=== PATIENT | female | born 1970 | race Caucasian/White ===

== ENCOUNTER → 2016-11-12 | Outpatient (CLI) | payer BC ==
[~2016-11-12] MED LIST: ALBU17IN INH; CYCL10TA PO; DULO1CAP3 PO; IBUP800T23 PO; MONT10TA2 PO; PRED10TA PO; QNAS80AE; QVAR80AE7 IN; TRAZ50TA4 PO
--- NOTE | 2016-11-12 14:41 | REP ---
CERVICAL SPINE, SEVEN VIEWS: HISTORY: Neck pain. There is no acute fracture. The C4-5 and C5-6 intervertebral discs are decreased in height consistent with disc degeneration. Osteophytes are present on C4 and 5. There is narrowing of the C5 neural foramina secondary to uncinate process hypertrophy. There are 2 mm of anterior subluxation of C3 on 4. This increases to 3 mm with flexion and returns to 2 mm with extension. There are 2 mm of anterior subluxation of C4 on C5. This is unchanged with flexion and extension. IMPRESSION: Degenerative change as described above. Signed by Reji Carcamo MD 11/12/2016 02:43 P
== END ==
LOC: M WUC 13:36
PROVIDERS: ATTEND Nurse Practitioner Family
DX: M50.321 Other cervical disc degeneration at C4-C5 level (principal); M50.322 Other cervical disc degeneration at C5-C6 level

== ENCOUNTER → 2016-12-29 | Outpatient (CLI) | payer BC | LOC: M WUC 12:19 | PROVIDERS: ATTEND Nurse Practitioner Family | DX: E55.9 Vitamin D deficiency, unspecified (principal) ==

== ENCOUNTER → 2017-11-14 | Outpatient (CLI) | payer BC, OTHER | LOC: M SMT 09:40 | DX: J45.50 Severe persistent asthma, uncomplicated (principal) | CPT/HCPCS: 71046 ==

== ENCOUNTER → 2018-06-09 | Outpatient (CLI) | payer BC | LOC: M PAIN 10:45 | DX: M79.7 Fibromyalgia (principal); M15.0 Primary generalized (osteo)arthritis; M54.2 Cervicalgia; T14.8XXA Other injury of unspecified body region, initial encounter; R53.1 Weakness; M47.812 Spondylosis without myelopathy or radiculopathy, cervical region; F32.9 Major depressive disorder, single episode, unspecified; F17.210 Nicotine dependence, cigarettes, uncomplicated; J45.909 Unspecified asthma, uncomplicated; Z79.899 Other long term (current) drug therapy; Y99.8 Other external cause status; X58.XXXA Exposure to other specified factors, initial encounter; Y92.89 Other specified places as the place of occurrence of the external cause; Y93.89 Activity, other specified | CPT/HCPCS: G0463 ==

== ENCOUNTER → 2018-08-08 | Outpatient (CLI) | payer BC | LOC: M PAIN 10:15 | DX: M79.7 Fibromyalgia (principal); R52 Pain, unspecified; J45.909 Unspecified asthma, uncomplicated; F32.9 Major depressive disorder, single episode, unspecified; R01.1 Cardiac murmur, unspecified; M19.90 Unspecified osteoarthritis, unspecified site; F17.210 Nicotine dependence, cigarettes, uncomplicated; N39.3 Stress incontinence (female) (male); R35.0 Frequency of micturition; Z79.899 Other long term (current) drug therapy | CPT/HCPCS: G0463 ==

== ENCOUNTER → 2018-09-19 | Outpatient (CLI) | payer BC | LOC: M PAIN 14:15 | DX: M79.7 Fibromyalgia (principal); R52 Pain, unspecified; J45.909 Unspecified asthma, uncomplicated; F32.9 Major depressive disorder, single episode, unspecified; M19.90 Unspecified osteoarthritis, unspecified site; Z79.51 Long term (current) use of inhaled steroids; Z79.899 Other long term (current) drug therapy | CPT/HCPCS: G0463 ==

== ENCOUNTER → 2018-10-27 | Outpatient (CLI) | payer BC ==
[~2018-10-27] MED LIST changes: +BUPIVACAINE HCL 0.25% 10 ML VIAL As Ordered ONE; +BUPIVACAINE HCL 0.25% 30 ML VIAL As Ordered ONE; +IBUP1TAB7 PO; -IBUP800T23 PO; +QVAR80AE10 IN; -QVAR80AE7 IN; +TRAZ-160 PO; -TRAZ50TA4 PO; +TRIAMCINOLONE ACETONIDE SUSP 40 MG/ML VIAL (J3301) As Ordered ONE; +diazePAM 5 MG TAB As Ordered ONE; +oxyCODONE 5MG TAB As Ordered ONE
--- NOTE | 2018-11-11 23:38 | ECWPNPC ---
PATIENT NAME: THERESE HALL : 1970 GENDER: FEMALE VISIT DATE: 10/27/2018 DISCHARGE DATE: 10/27/18951 VISIT LOCKED DATE TIME: PHYSICIAN: CARLOTTA SIMMONS MD RESOURCE: CARLOTTA SIMMONS MD REASON FOR APPOINTMENT 1. TPI HISTORY OF PRESENT ILLNESS HISTORY OF PRESENT ILLNESS: PAIN THE PATIENT DESCRIBES THE PAIN... FALL RISK SCREENING: SCREENING :NO FALLS IN THE PAST YEAR CURRENT MEDICATIONS TAKING IBUPROFEN 800 MG TABLET 1 TABLET ORALLY Q8H, NOTES: 10/26/18@1099 TAKING MULTIVITAMINS OTC TABLET 1 TAB(S) ORALLY DAILY, NOTES: @1099 TAKING DULOXETINE HCL 60 MG CAPSULE DELAYED RELEASE PARTICLES 1 CAPSULE ORALLY BID, NOTES: 10/26/18 TAKING MONTELUKAST SODIUM 10 MG TABLET 1 TABLET ORALLY ONCE A DAY, NOTES: 10/26/18 TAKING TRAZODONE HCL 100 MG TABLET 1 TABLET AT BEDTIME ORALLY ONCE A DAY, NOTES: 10/26/18 TAKING CYCLOBENZAPRINE HCL 10 MG TABLET 1 TABLET NEEDED ORALLY THREE TIMES A DAY, NOTES: 1 WEEK AGO TAKING BREO ELLIPTA 200-25 MCG/INH AEROSOL POWDER BREATH ACTIVATED 1 PUFF INHALATION ONCE A DAY, NOTES: 10/26/18 TAKING MOMETASONE FUROATE 50 MCG/ACT SUSPENSION 2 SPRAYS IN EACH NOSTRIL NASALLY ONCE A DAY, NOTES: NONE RECENTLY TAKING BENADRYL ALLERGY 25 MG TABLET 1 TABLET NEEDED ORALLY EVERY 8 HRS, NOTES: 10/26/18@2300 TAKING FISH OIL 1200 MG CAPSULE 1 CAPSULE ORALLY ONCE A DAY, NOTES: 10/26/18 TAKING MARYAN ALLERGY 180 MG TABLET 1 TABLET NEEDED ORALLY ONCE A DAY, NOTES: 10/26/18 TAKING TRAMADOL HCL 50 MG TABLET 1 TABLET NEEDED ORALLY EVERY 6 HRS PRN MDD4 #60TAB SHOULD LAST 30 DAYS, NOTES: 1 WEEK AGO NOT-TAKING VENTOLIN HFA 108 (90 BASE) MCG/ACT AEROSOL SOLUTION 2 PUFFS NEEDED INHALATION EVERY 6 HRS, NOTES: NONE RECENTLY DISCONTINUED CELEBREX 200 MG CAPSULE 1 CAPSULE WITH FOOD ORALLY FOR PAIN ONCE A DAY DISCONTINUED AZURETTE 0.15-0.02/0.01 MG (/5) TABLET 1 TABLET ORALLY ONCE A DAY MEDICATION LIST REVIEWED AND RECONCILED WITH THE PATIENT PAST MEDICAL HISTORY URINARY FREQUENCY/STRESS INCONTINENCE ASTHMA FIBROMYALGIA CHRONIC PAIN , NECK PAIN , DJD DEPRESSION PALPITATIONS ARTHRITIS ALLERGIES ENVIRONMENTAL: POST NASAL DRIP: ALLERGY SURGICAL HISTORY COLONOSCOPY 2007 REMOVAL BREAST CYSTS THROUGH NEEDLE ASPIRATION 2009 HYSTERECTOMY 2011 FAMILY HISTORY FATHER: 63 YRS, DIAGNOSED WITH CANCER MOTHER: ALIVE 79 YRS 2 SISTER(S) - HEALTHY. 2 SON(S) - HEALTHY. DAD LR/T LUNG CANCERMOM, BOTH SISTERS DIAGNOSED WITH ARTHRITIS. SOCIAL HISTORY GENERAL: TOBACCO USE ARE YOU A:CURRENT SMOKER ARE YOU INTERESTED IN QUITTING?THINKING ABOUT QUITTING CUTTING BACK SLOWLY AT THIS TIME PREVIOUS QUIT ATTEMPTS?YES, MORE THAN 6 MONTHS AGO. COUNSELED THE PATIENT ON SMOKING CESSATION, EDUCATION [id number]/04/2019 ASSIST (PHARMACOTHERAPY AND COUNSELING)DISCUSSED PATIENT CONCERNS RELATED TO QUITTING. PT STATES SHE HAS INFORMATION REGARDING SMOKING CESSATION HOW MANY CIGARETTES A DAY DO YOU SMOKE?6-10 HOW SOON AFTER YOU WAKE UP DO YOU SMOKE YOUR FIRST CIGARETTE?WITHIN 5 MIN HOW OFTEN DO YOU SMOKE CIGARETTES?EVERY DAY PATIENT COUNSELED ON THE DANGERS OF TOBACCO USE AND URGED TO QUIT:10/27/2018 RECREATIONAL DRUG USE DRUG USE?YES HOW OFTEN AND HOW MUCH? SMOKES MARIJUANA SEVERAL TIMES A MONTH CAFFEINE 2 COFFEES/DAY. NO SODA. SEXUAL HX HAD SEX IN THE LAST 12 MONTHS (VAGINAL, ORAL, OR ANAL)?YES WITHMEN ONLY USE PROTECTION?NO HAVE YOU EVER HAD AN STD?NO LMP:08/20/10 LANGUAGE LANGUAGES SPOKEN:SAMI LEARNING BARRIERS / SPECIAL NEEDS BARRIERS TO LEARNING?NO HEARING IMPAIRED?NO VISION IMPAIRED?NO COGNITIVELY IMPAIRED?NO READINESS TO LEARN?YES LEARNING PREFERENCES?NO LEARNING CAPABILITIES PRESENT?YES EMOTIONAL BARRIERS?NO SPECIAL DEVICES?NO GUM DIPPER NEEDED?NO DOMESTIC VIOLENCE DO YOU FEEL SAFE IN YOUR ENVIRONMENT?YES OCCUPATION: UNEMPLOYED. EXERCISE: DAILY 30 MINS CARDIO. MARITAL STATUS: . OTHERS AT HOME: SPOUSE, CHILDREN. PAIN CLINIC PFS, CLERGY, PUBLIC HEALTH REFERRALS HAS THE PATIENT BEEN EDUCATED REGARDING HIS/HER PLAN OF CARE?YES HAS THE PATIENT BEEN EDUCATED REGARDING PAIN, THE RISK FOR PAIN, THE IMPORTANCE OF EFFECTIVE PAIN MANAGEMENT, AND THE PAIN ASSESSMENT PROCESS?YES ADVANCE DIRECTIVE ADVANCE DIRECTIVE DISCUSSED WITH PATIENT:YES PT HAS NO ADVANCED DIRECTIVES, DECLINES INFORMATION AT THIS TIME REVIEWED WITH PT 06/09/18 1120 LASREVIEWED WITH PT 08/08/18 1031 BV. HOSPITALIZATION/MAJOR DIAGNOSTIC PROCEDURE ASTHMA ATTACK, WAS INTUBATED AND AN INPATIENT X 7 DAYS 2016 REVIEW OF SYSTEMS REVIEWED BY: PROVIDER: . CONSTITUTIONAL: ANY CHANGE IN YOUR MEDICAL CONDITION? NO . CHILLS NO . FEVER NO . INFECTION: DO YOU HAVE NEW INFECTIONS? NO . DO YOU HAVE HISTORY OF MRSA? NO . MUSCULOSKELETAL: ANY NEW PATTERNS OF PAIN OR NUMBNESS? NO . GASTROENTEROLOGY: ANY NEW CHANGE IN BOWEL CONTROL? NO . GENITOURINARY: ANY NEW CHANGE IN BLADDER CONTROL? NO . IS THERE A CHANCE YOU COULD BE ? NO . HEMATOLOGY/LYMPH: DO YOU TAKE ANY BLOOD THINNERS? (FOR EXAMPLE- COUMADIN, PLAVIX, AGGRENOX, PLATEL, PRADAXA, OR XARELTO) NO . WHEN WAS YOUR LAST DOSE? DATE: TIME: . NEUROLOGY: HAVE YOU FALLEN IN THE PAST 6 MONTHS? NO . ANY NEW EXTREMITY NUMBNESS OR WEAKNESS? NO . CARDIOLOGY: DO YOU HAVE A PACEMAKER OR DEFIBRILLATOR? NO . RESPIRATORY: HAVE YOU BEEN SICK IN THE PAST WEEK? NO . FEVER NO . FLU LIKE SYMPTOMS? NO . COUGH NO . INTEGUMENTARY: DO YOU HAVE ANY RASHES OR OPEN SORES? NO . ALLERGIC/IMMUNO: ARE YOU ALLERGIC TO SHELLFISH OR IV DYE? NO . ANY NEW ALLERGIES? NO . PSYCHIATRIC: DO YOU HAVE THOUGHTS OF HURTING YOURSELF OR SOMEONE ELSE? NO . ARE YOU ABUSED, NEGLECTED, OR IN AN UNSAFE ENVIRONMENT? NO . ENDOCRINOLOGY: ARE YOU DIABETIC? NO . OTHER: DO YOU NEED ANY PRESCRIPTIONS? NO . IF YES, PLEASE LIST: ____ . ANY NEW PROBLEMS WITH YOUR MEDICATIONS? NO . WHEN DID YOU LAST EAT? ____10/26/18 . WHEN DID YOU LAST DRINK? ____0600 . WHAT DID YOU LAST DRINK? ____BLACK COFFEE . NAME OF PERSON DRIVING YOU HOME? ____JAIRON HALL . DO YOU HAVE ANY OTHER QUESTIONS OR CONCERNS NO . VITAL SIGNS WT 125.6 LBS, HT 62.25 IN, BMI 22.79 INDEX, BP 128/85 MM HG, HR 84 /MIN, RR 16 /MIN, TEMP 98.1 F, OXYGEN SAT % 96%, SAFE IN ENV? (Y/N) Y, NA INITIALS MA 08:37, REVIEWED BY: ARRON. ASSESSMENTS MYALGIA, OTHER SITE - M79.18 (PRIMARY) PROCEDURES PN TRIGGER POINT INJECTION WITH STEROIDS PRE PROCEDURE DIAGNOSIS 1. MYALGIA 2. PAIN AT BILATERAL NECK AREA, BILATERAL SHOULDER AREA, AND BILATERAL THORACIC AREA POST PROCEDURE DIAGNOSIS 1. MYALGIA 2. PAIN AT BILATERAL NECK AREA, BILATERAL SHOULDER AREA, AND BILATERAL THORACIC AREA PROCEDURE TRIGGER POINT INJECTION AT BILATERAL NECK AREA, BILATERAL SHOULDER AREA, AND BILATERAL THORACIC AREA SURGEON DR. CARLOTTA SIMMONS ROLLER DIE CUTTING MACHINE OPERATOR NONE ANESTHESIA LOCAL PRE PROCEDURE NOTE THE PATIENT HAS A HISTORY OF CHRONIC PAIN AT THE RIGHT AND LEFT NECK AREA, RIGHT AND LEFT SHOULDER AREA, AND RIGHT AND LEFT THORACIC AREA. I EVALUATE THE PATIENT AND REVIEWED THE CHART. THERE IS EVIDENCE OF BANDS OF TISSUE WITH RESTRICTION OF MOVEMENT AND PRESENCE OF TRIGGER POINT AT THE AFFECTED AREA. I WENT OVER THE RISKS, ALTERNATIVES, AND BENEFITS ASSOCIATED WITH THIS PROCEDURE. THE PATIENT WOULD LIKE TO PROCEED AND GIVE CONSENT TO PERFORMED THE PROCEDURE. THE PATIENT DENIES UNEXPLAINABLE WEIGHT LOSS, FEVER, CHILLS, OR NEW CHANGES IN URINARY OR BOWEL CONTROL DESCRIPTION OF PROCEDURE THE PATIENT WAS BROUGHT TO THE PROCEDURE ROOM AND PLACED IN THE SITTING POSITION. THE AREA WAS CLEANED WITH ALCOHOL. THE PROCEDURE WAS DONE USING ASEPTIC STERILE TECHNIQUE. I CHECKED LATERALITY AND THE LEVEL WHERE THE PROCEDURE WAS GOING TO BE PERFORMED WITH THE PATIENT AND THE SUPPORTING STAFF AT THE MOMENT OF THE TIME OUT IN THE PROCEDURE ROOM. USING A 25-GAUGE NEEDLE, TRIGGER POINTS WERE INJECTED AT THE RIGHT AND LEFT NECK AREA, RIGHT AND LEFT SHOULDER AREA, AND RIGHT AND LEFT THORACIC AREA WITH A TOTAL OF 40 ML OF BUPIVACAINE 0.25% AND KENALOG 40 MG. THERE WAS NO EVIDENCE OF BLOOD, PARESTHESIA OR CEREBROSPINAL FLUID DURING THE PROCEDURE. THE PATIENT WAS SENT TO THE RECOVERY ROOM. THE PATIENT WAS MOVING THE EXTREMITIES AND DOING WELL. THERE WAS NO COMPLICATION DURING THE PROCEDURE POST PROCEDURE NOTE THE PATIENT WILL BE SEEN IN A FOLLOW UP IN THE NEXT FEW WEEKS. INSTRUCTIONS WERE GIVEN, QUESTIONS WERE ANSWERED, AND THE PATIENT EXPRESSED UNDERSTANDING AND AGREES WITH THE PLAN .I, ARIELLE MAGUIRE, DOCUMENTED THE ABOVE INFORMATION ACTING A SCRIBE FOR DR. SIMMONS. I HAVE REVIEWED THE ABOVE DOCUMENT, WRITTEN BY ARIELLE FLANAGAN AND I VERIFY THAT IT IS ACCURATE. PROCEDURE CODES 14154 INJECT TRIGGER POINTS 3/> DISPOSITION & COMMUNICATION FOLLOW UP 3 WEEKS ELECTRONICALLY SIGNED BY CARLOTTA SIMMONS MD, MD ON 11/11/2018 AT 09:26 PM EST DISCLAIMER : THIS IS A VISIT SUMMARY EXTRACTED FROM THE [employer] CHART. IT IS NOT A COPY OF THE [facility] PROGRESS NOTE. MTDD
== END ==
LOC: M PAIN 08:30
PROVIDERS: ATTEND Anesthesiology
DX: M79.18 Myalgia, other site (principal); M25.511 Pain in right shoulder; M25.512 Pain in left shoulder; M54.6 Pain in thoracic spine; J45.909 Unspecified asthma, uncomplicated; F32.9 Major depressive disorder, single episode, unspecified; M19.90 Unspecified osteoarthritis, unspecified site; F17.210 Nicotine dependence, cigarettes, uncomplicated; Z79.51 Long term (current) use of inhaled steroids; Z79.899 Other long term (current) drug therapy
CPT/HCPCS: 20553; J3301

== ENCOUNTER → 2018-11-27 | Outpatient (CLI) | payer BC ==
[~2018-11-27] MED LIST changes: -BUPIVACAINE HCL 0.25% 10 ML VIAL As Ordered ONE; -BUPIVACAINE HCL 0.25% 30 ML VIAL As Ordered ONE; -TRIAMCINOLONE ACETONIDE SUSP 40 MG/ML VIAL (J3301) As Ordered ONE; -diazePAM 5 MG TAB As Ordered ONE; -oxyCODONE 5MG TAB As Ordered ONE
--- NOTE | 2018-12-05 01:11 | ECWPNPC ---
PATIENT NAME: THERESE HALL : 1970 GENDER: FEMALE VISIT DATE: 11/27/2018 DISCHARGE DATE: 11/27/18 1425 VISIT LOCKED DATE TIME: PHYSICIAN: ANNEMARIE CORADO RESOURCE: ANNEMARIE CORADO REASON FOR APPOINTMENT 1. POST PROC HISTORY OF PRESENT ILLNESS HISTORY OF PRESENT ILLNESS: HERE FOR POST PROCEDURE F/U.HAD TPI NECK 11/11.REPORTING MARKED REDUCTION IN PAIN POST PROCEDURE THAT CONTINUES TODAY.RATING PAIN VAS 2/10. PAIN THE PATIENT DESCRIBES THE PAIN... THE PATIENT DESCRIBES THE PAIN... FALL RISK SCREENING: SCREENING :NO FALLS IN THE PAST YEAR :NO FALLS IN THE PAST YEAR SCREENING :NO FALLS IN THE PAST YEAR :NO FALLS IN THE PAST YEAR CURRENT MEDICATIONS TAKING IBUPROFEN 800 MG TABLET 1 TABLET ORALLY Q8H TAKING MULTIVITAMINS OTC TABLET 1 TAB(S) ORALLY DAILY TAKING DULOXETINE HCL 60 MG CAPSULE DELAYED RELEASE PARTICLES 1 CAPSULE ORALLY BID TAKING MONTELUKAST SODIUM 10 MG TABLET 1 TABLET ORALLY ONCE A DAY TAKING TRAZODONE HCL 100 MG TABLET 1 TABLET AT BEDTIME ORALLY ONCE A DAY TAKING CYCLOBENZAPRINE HCL 10 MG TABLET 1 TABLET NEEDED ORALLY THREE TIMES A DAY TAKING BREO ELLIPTA 200-25 MCG/INH AEROSOL POWDER BREATH ACTIVATED 1 PUFF INHALATION ONCE A DAY TAKING MOMETASONE FUROATE 50 MCG/ACT SUSPENSION 2 SPRAYS IN EACH NOSTRIL NASALLY ONCE A DAY, NOTES: NONE RECENTLY TAKING BENADRYL ALLERGY 25 MG TABLET 1 TABLET NEEDED ORALLY EVERY 8 HRS TAKING FISH OIL 1200 MG CAPSULE 1 CAPSULE ORALLY ONCE A DAY TAKING MARYAN ALLERGY 180 MG TABLET 1 TABLET NEEDED ORALLY ONCE A DAY UNKNOWN TRAMADOL HCL 50 MG TABLET 1 TABLET NEEDED ORALLY EVERY 6 HRS PRN MDD4 #60TAB SHOULD LAST 30 DAYS, NOTES: NOT REALLY TAKOIG UNKNOWN VENTOLIN HFA 108 (90 BASE) MCG/ACT AEROSOL SOLUTION 2 PUFFS NEEDED INHALATION EVERY 6 HRS, NOTES: NONE RECENTLY MEDICATION LIST REVIEWED AND RECONCILED WITH THE PATIENT PAST MEDICAL HISTORY URINARY FREQUENCY/STRESS INCONTINENCE ASTHMA FIBROMYALGIA CHRONIC PAIN , NECK PAIN , DJD DEPRESSION PALPITATIONS ARTHRITIS ALLERGIES ENVIRONMENTAL: POST NASAL DRIP: ALLERGY SURGICAL HISTORY COLONOSCOPY 2007 REMOVAL BREAST CYSTS THROUGH NEEDLE ASPIRATION 2009 HYSTERECTOMY 2011 FAMILY HISTORY FATHER: 63 YRS, DIAGNOSED WITH CANCER MOTHER: ALIVE 79 YRS 2 SISTER(S) - HEALTHY. 2 SON(S) - HEALTHY. DAD LR/T LUNG CANCERMOM, BOTH SISTERS DIAGNOSED WITH ARTHRITIS. HOSPITALIZATION/MAJOR DIAGNOSTIC PROCEDURE ASTHMA ATTACK, WAS INTUBATED AND AN INPATIENT X 7 DAYS 2016 REVIEW OF SYSTEMS REVIEWED BY: PROVIDER: , ANNEMARIE SINGH . CONSTITUTIONAL: ANY CHANGE IN YOUR MEDICAL CONDITION? LATELY EXPERIENCING DIZZINESS . CHILLS NO, NO . FEVER NO, NO . INFECTION: DO YOU HAVE NEW INFECTIONS? NO, NO . DO YOU HAVE HISTORY OF MRSA? NO, NO . MUSCULOSKELETAL: ANY NEW PATTERNS OF PAIN OR NUMBNESS? DECREASED SINCE TRIGGER POINTS . GASTROENTEROLOGY: ANY NEW CHANGE IN BOWEL CONTROL? NO, NO . GENITOURINARY: ANY NEW CHANGE IN BLADDER CONTROL? NO, NO . IS THERE A CHANCE YOU COULD BE ? NO, NO . HEMATOLOGY/LYMPH: DO YOU TAKE ANY BLOOD THINNERS? (FOR EXAMPLE- COUMADIN, PLAVIX, AGGRENOX, PLATEL, PRADAXA, OR XARELTO) NO, NO . WHEN WAS YOUR LAST DOSE? DATE: TIME: , DATE: TIME: . NEUROLOGY: HAVE YOU FALLEN IN THE PAST 12 MONTHS? NO, NO . ANY NEW EXTREMITY NUMBNESS OR WEAKNESS? NO, NO . CARDIOLOGY: DO YOU HAVE A PACEMAKER OR DEFIBRILLATOR? NO, NO . RESPIRATORY: HAVE YOU BEEN SICK IN THE PAST WEEK? NO, NO . FEVER NO, NO . FLU LIKE SYMPTOMS? NO, NO . COUGH NO, NO . INTEGUMENTARY: DO YOU HAVE ANY RASHES OR OPEN SORES? NO, NO . ALLERGIC/IMMUNO: ARE YOU ALLERGIC TO IV DYE? NO, NO . ANY NEW ALLERGIES? NO, NO . PSYCHIATRIC: DO YOU HAVE THOUGHTS OF HURTING YOURSELF OR SOMEONE ELSE? NO, NO . ARE YOU ABUSED, NEGLECTED, OR IN AN UNSAFE ENVIRONMENT? NO, NO . ENDOCRINOLOGY: ARE YOU DIABETIC? NO, NO . OTHER: DO YOU NEED ANY PRESCRIPTIONS? NO, NO . IF YES, PLEASE LIST: ____, ____ . ANY NEW PROBLEMS WITH YOUR MEDICATIONS? NO, NO . WHEN DID YOU LAST EAT? ____, ____ . WHEN DID YOU LAST DRINK? ____, ____ . WHAT DID YOU LAST DRINK? ____, ____ . NAME OF PERSON DRIVING YOU HOME? ____, ____ . DO YOU HAVE ANY OTHER QUESTIONS OR CONCERNS NO, NO . VITAL SIGNS WT 119.6 LBS, HT 62.25 IN, BMI 21.70 INDEX, BP 128/82 MM HG, HR 88 /MIN, RR 16 /MIN, TEMP 98.3 F, OXYGEN SAT % 96%, NA INITIALS SC 13:47, REVIEWED BY: KG. EXAMINATION GENERAL EXAMINATION: GENERAL APPEARANCE:AWAKE,ALERT ,PLEAASANT . PSYCHAFFECT NORMAL . LUNGS:LUNG GLASGOW ARE CLEAR TO AUSCULTATION BILATERALLY. GOOD MOVEMENT OF AIR . HEART:S1, S2 IN A REGULAR RATE AND RHYTHM. NO SIGNIFICANT MURMURS, RUBS OR GALLOPS NOTED . ASSESSMENTS FIBROMYALGIA - M79.7 (PRIMARY) MYALGIA, OTHER SITE - M79.18 TREATMENT FIBROMYALGIA NOTES: HOME STRETCHING EXCERSISES. PROCEDURE CODES FA211 ESTABILISHED PATIENT [facility] CHARGE DISPOSITION & COMMUNICATION FOLLOW UP 3 MONTHS ELECTRONICALLY SIGNED BY FRANCISCO GOLEDN ON 12/04/2018 AT 04:54 PM EST DISCLAIMER : THIS IS A VISIT SUMMARY EXTRACTED FROM THE [employer] CHART. IT IS NOT A COPY OF THE [employer] PROGRESS NOTE. VIJAY
== END ==
LOC: M PAIN 13:45
PROVIDERS: ATTEND Nurse Practitioner Family
DX: M79.7 Fibromyalgia (principal); M79.18 Myalgia, other site; J45.909 Unspecified asthma, uncomplicated; F32.9 Major depressive disorder, single episode, unspecified; Z79.1 Long term (current) use of non-steroidal anti-inflammatories (NSAID); Z79.51 Long term (current) use of inhaled steroids; Z79.899 Other long term (current) drug therapy

== ENCOUNTER → 2018-12-08 | Outpatient (REF) | payer OTHER ==
[2018-12-08 13:42] LABS: BASO # 0.1 10^3/uL (0.0-0.2); BASO % 0.6 % (0.0-1.0); EOS # 0.2 10^3/uL (0.0-0.50); EOS % 2.3 % (0.0-3.0); HEMATOCRIT 45.5 % (36.0-47.0); HEMOGLOBIN 15.1 g/dl (12.0-15.5); LYMPH # 3.7 10^3/uL (1.5-4.5); LYMPH % 44.7 % (24.0-44.0); MEAN CORPUSCULAR HEMOGLOBIN 32.9 pg (27.0-33.0); MEAN CORPUSCULAR HGB CONC 33.2 g/dl (32.0-36.5); MEAN CORPUSCULAR VOLUME 99.1 fl (80.0-96.0); MONO # 0.6 10^3/uL (0.0-0.8); MONO % 7.1 % (0.0-5.0); NEUTROPHILS # 3.7 10^3/uL (1.8-7.7); NEUTROPHILS % 44.9 % (36.0-66.0); PLATELET COUNT, AUTOMATED 353 10^3/uL (150-450); RED BLOOD COUNT 4.59 10^6/uL (4.00-5.40); WHITE BLOOD COUNT 8.2 10^3/uL (4.0-10.0)
[2018-12-08 13:54] LABS: ALBUMIN 3.8 GM/DL (3.2-5.2); ALT/SGPT 26 U/L (12-78); BILIRUBIN,TOTAL 0.3 MG/DL (0.2-1.0); BLOOD UREA NITROGEN 9 MG/DL (7-18); CALCIUM LEVEL 8.5 MG/DL (8.5-10.1); CARBON DIOXIDE LEVEL 29 MEQ/L (21-32); CHLORIDE LEVEL 103 MEQ/L (98-107); CREATININE FOR GFR 0.75 MG/DL (0.55-1.30); GLOMERULAR FILTRATION RATE > 60.0 (>51); GLUCOSE, FASTING 97 MG/DL (70-100); POTASSIUM SERUM 4.6 MEQ/L (3.5-5.1); RHEUMATOID FACTOR QUANT < 10.0 IU/ML (<15.0); SODIUM LEVEL 139 MEQ/L (136-145); TOTAL PROTEIN 7.3 GM/DL (6.4-8.2)
[2018-12-08 13:56] LABS: TOTAL 25(OH) VITAMIN D 24.3 NG/ML (30.0-100.0)
[2018-12-08 14:19] LABS: ERYTHROCYTE SEDIMENTATION RATE 5 mm/hr (0-30)
[2018-12-09 14:43] LABS: ANTINUCLEAR ANTIBODIES DIRECT Negative (Negative)
== END ==
LOC: M LABNEURO 09:52
PROVIDERS: ATTEND Psychiatry & Neurology Neurology
DX: R51 Headache (principal); R42 Dizziness and giddiness

== ENCOUNTER → 2019-02-05 | Outpatient (CLI) | payer OTHER ==
[~2019-02-05] MED LIST changes: +PRED-351 PO; -PRED10TA PO
[2019-02-05 09:36] LABS: BASO # 0.1 10^3/uL (0.0-0.2); BASO % 0.7 % (0.0-1.0); EOS # 0.1 10^3/uL (0.0-0.50); EOS % 1.3 % (0.0-3.0); HEMATOCRIT 44.1 % (36.0-47.0); HEMOGLOBIN 14.7 g/dl (12.0-15.5); LYMPH # 3.9 10^3/uL (1.5-4.5); LYMPH % 52.1 % (24.0-44.0); MEAN CORPUSCULAR HEMOGLOBIN 33.5 pg (27.0-33.0); MEAN CORPUSCULAR HGB CONC 33.3 g/dl (32.0-36.5); MEAN CORPUSCULAR VOLUME 100.5 fl (80.0-96.0); MONO # 0.7 10^3/uL (0.0-0.8); MONO % 8.7 % (0.0-5.0); NEUTROPHILS # 2.8 10^3/uL (1.8-7.7); NEUTROPHILS % 36.9 % (36.0-66.0); PLATELET COUNT, AUTOMATED 359 10^3/uL (150-450); RED BLOOD COUNT 4.39 10^6/uL (4.00-5.40); WHITE BLOOD COUNT 7.5 10^3/uL (4.0-10.0)
[2019-02-05 09:52] LABS: ALBUMIN 3.6 GM/DL (3.2-5.2); ALT/SGPT 19 U/L (12-78); BILIRUBIN,TOTAL 0.5 MG/DL (0.2-1.0); BLOOD UREA NITROGEN 12 MG/DL (7-18); CALCIUM LEVEL 8.8 MG/DL (8.5-10.1); CARBON DIOXIDE LEVEL 31 MEQ/L (21-32); CHLORIDE LEVEL 107 MEQ/L (98-107); CHOLESTEROL LEVEL 204 MG/DL (<200); CHOLESTEROL RISK RATIO 2.241 (<5); CREATININE FOR GFR 0.78 MG/DL (0.55-1.30); GLOMERULAR FILTRATION RATE > 60.0 (>51); GLUCOSE, FASTING 105 MG/DL (70-100); HDL CHOLESTEROL 91 MG/DL (>40); LDL CHOLESTEROL 98 MG/DL (<100); NON-HDL-C 113 MG/DL; POTASSIUM SERUM 4.7 MEQ/L (3.5-5.1); SODIUM LEVEL 140 MEQ/L (136-145); TOTAL PROTEIN 6.5 GM/DL (6.4-8.2); TRIGLYCERIDES LEVEL 75 MG/DL (<150)
[2019-02-05 10:08] LABS: TOTAL 25(OH) VITAMIN D 28.1 NG/ML (30.0-100.0)
== END ==
LOC: M WUC 08:13
PROVIDERS: ATTEND Physician Assistant Medical
DX: R53.83 Other fatigue (principal); I10 Essential (primary) hypertension

== ENCOUNTER → 2019-04-10 | Outpatient (REF) | payer OTHER ==
[~2019-04-10] MED LIST changes: -TRAZ-160 PO; +TRAZ-252 PO
[2019-04-13 00:08] LABS: Lyme Disease IgG/IgM Antibodie <0.91 ISR (0.00-0.90); Lyme Disease IgM Ab Quantitati <0.80 index (0.00-0.79)
== END ==
LOC: M LAB REF 16:56
PROVIDERS: ATTEND Physician Assistant Medical
DX: R21 Rash and other nonspecific skin eruption (principal)

== ENCOUNTER → 2019-04-10 | Outpatient (REF) | payer OTHER ==
[2019-04-10 19:09] LABS: BASO % 0.6 % (0.0-1.0); EOS # 0.1 10^3/uL (0.0-0.50); EOS % 0.9 % (0.0-3.0); HEMATOCRIT 42.9 % (36.0-47.0); LYMPH # 3.1 10^3/uL (1.5-4.5); LYMPH % 47.1 % (24.0-44.0); MEAN CORPUSCULAR HEMOGLOBIN 32.8 pg (27.0-33.0); MEAN CORPUSCULAR HGB CONC 32.6 g/dl (32.0-36.5); MEAN CORPUSCULAR VOLUME 100.5 fl (80.0-96.0); MONO # 0.6 10^3/uL (0.0-0.8); MONO % 8.4 % (0.0-5.0); NEUTROPHILS # 2.8 10^3/uL (1.8-7.7); NEUTROPHILS % 42.7 % (36.0-66.0); PLATELET COUNT, AUTOMATED 320 10^3/uL (150-450); RED BLOOD COUNT 4.27 10^6/uL (4.00-5.40); WHITE BLOOD COUNT 6.7 10^3/uL (4.0-10.0)
[2019-04-10 19:15] LABS: ALBUMIN 3.7 GM/DL (3.2-5.2); ALT/SGPT 25 U/L (12-78); BILIRUBIN,TOTAL 0.3 MG/DL (0.2-1.0); BLOOD UREA NITROGEN 10 MG/DL (7-18); CARBON DIOXIDE LEVEL 29 MEQ/L (21-32); CHLORIDE LEVEL 105 MEQ/L (98-107); CREATININE FOR GFR 0.72 MG/DL (0.55-1.30); GLOMERULAR FILTRATION RATE > 60.0 (>51); GLUCOSE, FASTING 64 MG/DL (70-100); POTASSIUM SERUM 4.4 MEQ/L (3.5-5.1); SODIUM LEVEL 137 MEQ/L (136-145); TOTAL PROTEIN 7.2 GM/DL (6.4-8.2); VALPROIC ACID (DEPAKOTE) < 3.0 UG/ML (50.0-100.0)
== END ==
LOC: M LABNEURO 14:42
PROVIDERS: ATTEND Psychiatry & Neurology Neurology
DX: R51 Headache (principal)

== ENCOUNTER → 2019-07-20 | Outpatient (CLI) | payer OTHER ==
[~2019-07-20] MED LIST changes: -DULO1CAP3 PO; +DULO1CAP6 PO
== END ==
LOC: M OUTALCOH 08:24
PROVIDERS: ATTEND Psychiatry & Neurology Psychiatry
DX: Z03.89 Encounter for observation for other suspected diseases and conditions ruled out (principal)

== ENCOUNTER 2019-08-22 10:54 | Outpatient (RCR) | payer OTHER | END 2019-08-23 | LOC: M OUTALCOH 10:54 | PROVIDERS: ATTEND Psychiatry & Neurology Psychiatry | DX: F10.10 Alcohol abuse, uncomplicated (principal); F17.200 Nicotine dependence, unspecified, uncomplicated ==

== ENCOUNTER → 2019-09-03 | Outpatient (CLI) | payer BC ==
--- NOTE | 2019-09-20 00:39 | ECWPNPC ---
PATIENT NAME: THERESE HALL : 1970 GENDER: FEMALE VISIT DATE: 09/03/2019 DISCHARGE DATE: 09/03/19 1158 VISIT LOCKED DATE TIME: PHYSICIAN: ANNEMARIE CORADO RESOURCE: ANNEMARIE CORADO REASON FOR APPOINTMENT 1. FIBROMYALGIA/DISCUSS TPI HISTORY OF PRESENT ILLNESS HISTORY OF PRESENT ILLNESS: HERE FOR F/U OF CHRONIC NECK PAIN.PAIN HAS ESCALATED OVER THE PAST 2 MONTHS.RATING PAIN VAS 8/10.HAS RESPONDED WELL TO TPI IN THE PAST.PAIN IS CONSTANT AND ACHING.REPORTING NIGHTTIME AWAKENINGS DUE TO PAIN. PAIN THE PATIENT DESCRIBES THE PAIN... FALL RISK SCREENING: SCREENING :NO FALLS REPORTED IN THE LAST YEAR CURRENT MEDICATIONS TAKING IBUPROFEN 800 MG TABLET 1 TABLET ORALLY Q8H TAKING MULTIVITAMINS OTC TABLET 1 TAB(S) ORALLY DAILY TAKING DULOXETINE HCL 60 MG CAPSULE DELAYED RELEASE PARTICLES 1 CAPSULE ORALLY BID TAKING MONTELUKAST SODIUM 10 MG TABLET 1 TABLET ORALLY ONCE A DAY TAKING TRAZODONE HCL 100 MG TABLET 1 TABLET AT BEDTIME ORALLY ONCE A DAY TAKING CYCLOBENZAPRINE HCL 10 MG TABLET 1 TABLET NEEDED ORALLY THREE TIMES A DAY TAKING BREO ELLIPTA 200-25 MCG/INH AEROSOL POWDER BREATH ACTIVATED 1 PUFF INHALATION ONCE A DAY TAKING BENADRYL ALLERGY 25 MG TABLET 1 TABLET NEEDED ORALLY EVERY 8 HRS TAKING FISH OIL 1200 MG CAPSULE 1 CAPSULE ORALLY ONCE A DAY TAKING MARYAN ALLERGY 180 MG TABLET 1 TABLET NEEDED ORALLY ONCE A DAY TAKING TRAMADOL HCL 50 MG TABLET 1 TABLET NEEDED ORALLY EVERY 6 HRS PRN MDD4 #60TAB SHOULD LAST 30 DAYS, NOTES: TAKES VERY RARELY NOT-TAKING VENTOLIN HFA 108 (90 BASE) MCG/ACT AEROSOL SOLUTION 2 PUFFS NEEDED INHALATION EVERY 6 HRS, NOTES: NONE RECENTLY MEDICATION LIST REVIEWED AND RECONCILED WITH THE PATIENT PAST MEDICAL HISTORY URINARY FREQUENCY/STRESS INCONTINENCE ASTHMA FIBROMYALGIA CHRONIC PAIN , NECK PAIN , DJD DEPRESSION PALPITATIONS ARTHRITIS ALLERGIES ENVIRONMENTAL: POST NASAL DRIP - ALLERGY SURGICAL HISTORY COLONOSCOPY 2007 REMOVAL BREAST CYSTS THROUGH NEEDLE ASPIRATION 2009 HYSTERECTOMY 2011 FAMILY HISTORY FATHER: 63 YRS, LUNG CANCER, DIAGNOSED WITH OTHER MALIGNANT NEOPLASM OF UNSPECIFIED SITE MOTHER: ALIVE 79 YRS SIBLINGS: SISTER- HAS HAD M.I. 2 SISTER(S) - HEALTHY. 2 SON(S) - HEALTHY. DAD LR/T LUNG CANCERMOM, BOTH SISTERS DIAGNOSED WITH ARTHRITIS. SOCIAL HISTORY GENERAL: TOBACCO USE ARE YOU A:CURRENT SMOKER ARE YOU INTERESTED IN QUITTING?READY TO QUIT ACTIVELY TRYING TO QUIT AT THIS TIME HOW MANY CIGARETTES A DAY DO YOU SMOKE?5 OR LESS HOW SOON AFTER YOU WAKE UP DO YOU SMOKE YOUR FIRST CIGARETTE?AFTER 60 MIN HOW OFTEN DO YOU SMOKE CIGARETTES?EVERY DAY PATIENT COUNSELED ON THE DANGERS OF TOBACCO USE AND URGED TO QUIT:09/03/2019 OTHERS AT HOME: SPOUSE, CHILDREN. LANGUAGE LANGUAGES SPOKEN:[place] DOMESTIC VIOLENCE DO YOU FEEL SAFE IN YOUR ENVIRONMENT?YES RECREATIONAL DRUG USE DRUG USE?NO EXERCISE: DAILY 30 MINS CARDIO. LEARNING BARRIERS / SPECIAL NEEDS BARRIERS TO LEARNING?NO HEARING IMPAIRED?NO VISION IMPAIRED?NO COGNITIVELY IMPAIRED?NO READINESS TO LEARN?YES LEARNING PREFERENCES?NO LEARNING CAPABILITIES PRESENT?YES EMOTIONAL BARRIERS?NO SPECIAL DEVICES?NO ANIMAL HUSBANDRY MANAGER NEEDED?NO PAIN CLINIC PFS, CLERGY, PUBLIC HEALTH REFERRALS HAS THE PATIENT BEEN EDUCATED REGARDING HIS/HER PLAN OF CARE?YES HAS THE PATIENT BEEN EDUCATED REGARDING PAIN, THE RISK FOR PAIN, THE IMPORTANCE OF EFFECTIVE PAIN MANAGEMENT, AND THE PAIN ASSESSMENT PROCESS?YES LATEX QUESTIONNAIRE LATEX ALLERGY : HAVE YOU EVER DEVELOPED ANY TYPE OF REACTION AFTER HANDLING LATEX PRODUCTS SUCH RUBBER GLOVES, CONDOMS, DIAPHRAGMS, BALLOONS, SOCKS, OR UNDERWEAR?NO LATEX ALLERGY : HAVE YOU EVER DEVELOPED ANY TYPE OF REACTION DURING OR AFTER DENTAL APPOINTMENT, VAGINAL/RECTAL EXAMINATION, SURGICAL PROCEDURE, OR ANY OTHER EXPOSURE?NO LATEX RISK : HAVE YOU EVER HAD ANY DIFFICULTY BREATHING OR HIVES AFTER EATING OR HANDLING ANY FRUITS, OR VEGETABLES; SUCH KIWI, BANANAS, STONE FRUITS, OR CHESTNUTSNO LATEX RISK : DO YOU HAVE A PREVIOUS PERSONAL HISTORY OF MORE THAN NINE SURGERIES, SPINA BIFIDA, OR REPEATED CATHERIZATIONS? NO LATEX RISK : ARE YOU FREQUENTLY EXPOSED TO LATEX PRODUCTS IN YOUR OCCUPATION?NO DATE ASKED : 05/22/2019 CAFFEINE CAFFEINE USE?YES HOW OFTEN AND HOW MUCH? 3 CUPS DAILY ADVANCE DIRECTIVE ADVANCE DIRECTIVE DISCUSSED WITH PATIENT:YES PT HAS NO ADVANCED DIRECTIVES, DECLINES INFORMATION AT THIS TIME MARITAL STATUS: . ALCOHOL SCREENING DID YOU HAVE A DRINK CONTAINING ALCOHOL IN THE PAST YEAR?YES HOW OFTEN DID YOU HAVE SIX OR MORE DRINKS ON ONE OCCASION IN THE PAST YEAR?NEVER (0 POINTS) HOW MANY DRINKS DID YOU HAVE ON A TYPICAL DAY WHEN YOU WERE DRINKING IN THE PAST YEAR?1 OR 2 (0 POINTS) HOW OFTEN DID YOU HAVE A DRINK CONTAINING ALCOHOL IN THE PAST YEAR?MONTHLY OR LESS (1 POINT) POINTS1 INTERPRETATIONNEGATIVE OCCUPATION: UNEMPLOYED. SEXUAL HX HAD SEX IN THE LAST 12 MONTHS (VAGINAL, ORAL, OR ANAL)?: YES, WITH: MEN ONLY, USE PROTECTION?: NO, HAVE YOU EVER HAD AN STD?: NO, LMP:: 08/20/10. REVIEWED WITH PT 06/09/18 1120 LASREVIEWED WITH PT 08/08/18 1031 BVREVIEWED WITH PATIENT 09/03/19 1112 JS. HOSPITALIZATION/MAJOR DIAGNOSTIC PROCEDURE ASTHMA ATTACK, WAS INTUBATED AND AN INPATIENT X 7 DAYS 2015 REVIEW OF SYSTEMS REVIEWED BY: PROVIDER: ANNEMARIE SINGH . CONSTITUTIONAL: ANY CHANGE IN YOUR MEDICAL CONDITION? NO . CHILLS NO . FEVER NO . INFECTION: DO YOU HAVE NEW INFECTIONS? NO . DO YOU HAVE HISTORY OF MRSA? NO . MUSCULOSKELETAL: ANY NEW PATTERNS OF PAIN OR NUMBNESS? NO . GASTROENTEROLOGY: ANY NEW CHANGE IN BOWEL CONTROL? NO . GENITOURINARY: ANY NEW CHANGE IN BLADDER CONTROL? NO . IS THERE A CHANCE YOU COULD BE ? NO . HEMATOLOGY/LYMPH: DO YOU TAKE ANY BLOOD THINNERS? (FOR EXAMPLE- COUMADIN, PLAVIX, AGGRENOX, PLATEL, PRADAXA, OR XARELTO) NO . WHEN WAS YOUR LAST DOSE? DATE: TIME: . NEUROLOGY: HAVE YOU FALLEN IN THE PAST 12 MONTHS? YES, STATES FALL A COUPLE WEEKS AGO - SLIPPED IN SHOWER. STATES NO INJURIES, NO ED VISIT, NO IMAGING . ANY NEW EXTREMITY NUMBNESS OR WEAKNESS? NO . CARDIOLOGY: DO YOU HAVE A PACEMAKER OR DEFIBRILLATOR? NO . RESPIRATORY: HAVE YOU BEEN SICK IN THE PAST WEEK? NO . FEVER NO . FLU LIKE SYMPTOMS? NO . COUGH NO . INTEGUMENTARY: DO YOU HAVE ANY RASHES OR OPEN SORES? NO . ALLERGIC/IMMUNO: ARE YOU ALLERGIC TO IV DYE? NO . ANY NEW ALLERGIES? NO . PSYCHIATRIC: DO YOU HAVE THOUGHTS OF HURTING YOURSELF OR SOMEONE ELSE? NO . ARE YOU ABUSED, NEGLECTED, OR IN AN UNSAFE ENVIRONMENT? NO . ENDOCRINOLOGY: ARE YOU DIABETIC? NO . OTHER: DO YOU NEED ANY PRESCRIPTIONS? YES . IF YES, PLEASE LIST: ____WOULD LIKE SOMETHING FOR PAIN . ANY NEW PROBLEMS WITH YOUR MEDICATIONS? NO . WHEN DID YOU LAST EAT? ____ . WHEN DID YOU LAST DRINK? ____ . WHAT DID YOU LAST DRINK? ____ . NAME OF PERSON DRIVING YOU HOME? ____ . DO YOU HAVE ANY OTHER QUESTIONS OR CONCERNS NO . VITAL SIGNS WT 134.6 LBS, HT 62.25 IN, BMI 24.42 INDEX, BP 110/68 MM HG, HR 74 /MIN, RR 18 /MIN, TEMP 97.3 F, OXYGEN SAT % 98%, SAFE IN ENV? (Y/N) YES, NA INITIALS AW 1105, REVIEWED BY: KASANDRA. EXAMINATION GENERAL EXAMINATION: GENERALALERT,NO DISTRESS. LUNGS:LUNG SOUNDS ARE CLEAR. HEART:HEART RATE REGULAR. MUSCULOSKELETAL:SLIGHTLY WEAK OVER LEFT LOWER EXTREMITY. CERVICALTRIGGER POINTS ELICITED OVER TRAPEZIUS BILAT.. NEUROLOGIC EXAM:CN'S NORMAL TESTED. MULTIPLE AREAS OF TENDER SPOTS INDICATIVE OF FIBROMYALGIA. ASSESSMENTS MYALGIA OF MUSCLE OF NECK - M79.18 (PRIMARY) FIBROMYALGIA - M79.7 TREATMENT MYALGIA OF MUSCLE OF NECK NOTES: TPI NECK. [facility]:GENERALIZED BODY PAIN-FIBROMYALGIA PREVENTIVE MEDICINE PAIN CLINIC TEACHING: PROCEDURE TEACHING REVIEWED INFORMATION ON TRIGGER POINT INJECTION PROCEDURE WITH PATIENT. ALSO REVIEWED PRE-PROCEDURE INSTRUCTIONS. PATIENT VERBALIZED AN UNDERSTANDING. MYRNA FULLER 09/03/2019 11:57:50 AM > . PROCEDURE CODES FA211 ESTABILISHED PATIENT [facility] FACILITY CHARGE DISPOSITION & COMMUNICATION FOLLOW UP POST (REASON: TPI NECK) ELECTRONICALLY SIGNED BY FRANCISCO GOLDEN ON 09/19/2019 AT 04:07 PM EST DISCLAIMER : THIS IS A VISIT SUMMARY EXTRACTED FROM THE [employer] CHART. IT IS NOT A COPY OF THE [employer] PROGRESS NOTE. VIJAY
== END ==
LOC: M PAIN 10:45
PROVIDERS: ATTEND Nurse Practitioner Family
DX: M79.18 Myalgia, other site (principal); M79.7 Fibromyalgia; J45.909 Unspecified asthma, uncomplicated; Z86.59 Personal history of other mental and behavioral disorders; F17.210 Nicotine dependence, cigarettes, uncomplicated; Z79.51 Long term (current) use of inhaled steroids; Z79.899 Other long term (current) drug therapy

== ENCOUNTER 2019-09-19 12:00 | Outpatient (RCR) | payer OTHER | END 2019-09-22 | LOC: M OUTALCOH 12:00 | PROVIDERS: ATTEND Psychiatry & Neurology Psychiatry | DX: F10.10 Alcohol abuse, uncomplicated (principal); F17.200 Nicotine dependence, unspecified, uncomplicated ==

== ENCOUNTER 2019-09-26 15:57 | Outpatient (RCR) | payer OTHER | END 2019-10-23 | LOC: M OUTALCOH 15:57 | PROVIDERS: ATTEND Psychiatry & Neurology Psychiatry | DX: F10.10 Alcohol abuse, uncomplicated (principal); F17.200 Nicotine dependence, unspecified, uncomplicated ==

== ENCOUNTER → 2019-11-01 | Outpatient (CLI) | payer BC ==
[~2019-11-01] MED LIST changes: +BUPIVACAINE HCL 0.25% 30 ML VIAL As Ordered ONE; +TRIAMCINOLONE ACETONIDE SUSP 40 MG/ML VIAL (J3301) As Ordered ONE; +diazePAM 5 MG TAB As Ordered ONE; +oxyCODONE 5MG TAB As Ordered ONE
--- NOTE | 2019-11-08 01:02 | ECWPNPC ---
PATIENT NAME: THERESE HALL : 1970 GENDER: FEMALE VISIT DATE: 11/01/2019 DISCHARGE DATE: 11/01/19 1331 VISIT LOCKED DATE TIME: PHYSICIAN: CARLOTTA SIMMONS MD RESOURCE: CARLOTTA SIMMONS MD REASON FOR APPOINTMENT 1. TPI BILATERAL NECK, BILATERAL SHOULDER, BILATERAL THORACIC HISTORY OF PRESENT ILLNESS HISTORY OF PRESENT ILLNESS: PAIN THE PATIENT DESCRIBES THE PAIN... FALL RISK SCREENING: SCREENING :NO FALLS REPORTED IN THE LAST YEAR CURRENT MEDICATIONS TAKING IBUPROFEN 800 MG TABLET 1 TABLET ORALLY Q8H, NOTES: 2 DAYS AGO TAKING MULTIVITAMINS OTC TABLET 1 TAB(S) ORALLY DAILY, NOTES: 10/31 10AM TAKING DULOXETINE HCL 60 MG CAPSULE DELAYED RELEASE PARTICLES 1 CAPSULE ORALLY BID, NOTES: 10/31 10PM TAKING MONTELUKAST SODIUM 10 MG TABLET 1 TABLET ORALLY ONCE A DAY, NOTES: 2 WEEKS TAKING TRAZODONE HCL 100 MG TABLET 1 TABLET AT BEDTIME ORALLY ONCE A DAY, NOTES: 10/31 10PM TAKING CYCLOBENZAPRINE HCL 10 MG TABLET 1 TABLET NEEDED ORALLY THREE TIMES A DAY, NOTES: 10/31 9AM TAKING BREO ELLIPTA 200-25 MCG/INH AEROSOL POWDER BREATH ACTIVATED 1 PUFF INHALATION ONCE A DAY, NOTES: 11/01 7AM TAKING BENADRYL ALLERGY 25 MG TABLET 1 TABLET NEEDED ORALLY EVERY 8 HRS, NOTES: 2 WEEKS TAKING FISH OIL 1200 MG CAPSULE 1 CAPSULE ORALLY ONCE A DAY, NOTES: 10/31 10A TAKING MARYAN ALLERGY 180 MG TABLET 1 TABLET NEEDED ORALLY ONCE A DAY, NOTES: 10/31 10A TAKING TRAMADOL HCL 50 MG TABLET 1 TABLET NEEDED ORALLY EVERY 6 HRS PRN MDD4 #60TAB SHOULD LAST 30 DAYS, NOTES: TAKES VERY RARELY 1MONTH AGO NOT-TAKING VENTOLIN HFA 108 (90 BASE) MCG/ACT AEROSOL SOLUTION 2 PUFFS NEEDED INHALATION EVERY 6 HRS, NOTES: NONE RECENTLY MEDICATION LIST REVIEWED AND RECONCILED WITH THE PATIENT PAST MEDICAL HISTORY URINARY FREQUENCY/STRESS INCONTINENCE ASTHMA FIBROMYALGIA CHRONIC PAIN , NECK PAIN , DJD DEPRESSION PALPITATIONS ARTHRITIS ALLERGIES ENVIRONMENTAL: POST NASAL DRIP - ALLERGY SURGICAL HISTORY COLONOSCOPY 2007 REMOVAL BREAST CYSTS THROUGH NEEDLE ASPIRATION 2009 HYSTERECTOMY 2011 FAMILY HISTORY FATHER: 63 YRS, LUNG CANCER, DIAGNOSED WITH OTHER MALIGNANT NEOPLASM OF UNSPECIFIED SITE MOTHER: ALIVE 79 YRS SIBLINGS: SISTER- HAS HAD M.I. 2 SISTER(S) - HEALTHY. 2 SON(S) - HEALTHY. DAD LR/T LUNG CANCERMOM, BOTH SISTERS DIAGNOSED WITH ARTHRITIS. SOCIAL HISTORY GENERAL: TOBACCO USE ARE YOU A:CURRENT SMOKER ARE YOU INTERESTED IN QUITTING?READY TO QUIT ACTIVELY TRYING TO QUIT AT THIS TIME HOW MANY CIGARETTES A DAY DO YOU SMOKE?5 OR LESS HOW SOON AFTER YOU WAKE UP DO YOU SMOKE YOUR FIRST CIGARETTE?AFTER 60 MIN HOW OFTEN DO YOU SMOKE CIGARETTES?EVERY DAY PATIENT COUNSELED ON THE DANGERS OF TOBACCO USE AND URGED TO QUIT:11/01/2019 OTHERS AT HOME: SPOUSE, CHILDREN. LANGUAGE LANGUAGES SPOKEN:DIVEHI DOMESTIC VIOLENCE DO YOU FEEL SAFE IN YOUR ENVIRONMENT?YES RECREATIONAL DRUG USE DRUG USE?NO EXERCISE: DAILY 30 MINS CARDIO. LEARNING BARRIERS / SPECIAL NEEDS BARRIERS TO LEARNING?NO HEARING IMPAIRED?NO VISION IMPAIRED?NO COGNITIVELY IMPAIRED?NO READINESS TO LEARN?YES LEARNING PREFERENCES?NO LEARNING CAPABILITIES PRESENT?YES EMOTIONAL BARRIERS?NO SPECIAL DEVICES?NO PYROTECHNICS PRESS TENDER NEEDED?NO PAIN CLINIC PFS, CLERGY, PUBLIC HEALTH REFERRALS WAS THE PROVIDER NOTIFIED OF ANY PERTINENT INFO?YES HAS THE PATIENT BEEN EDUCATED REGARDING HIS/HER PLAN OF CARE?YES HAS THE PATIENT BEEN EDUCATED REGARDING PAIN, THE RISK FOR PAIN, THE IMPORTANCE OF EFFECTIVE PAIN MANAGEMENT, AND THE PAIN ASSESSMENT PROCESS?YES LATEX QUESTIONNAIRE LATEX ALLERGY : HAVE YOU EVER DEVELOPED ANY TYPE OF REACTION AFTER HANDLING LATEX PRODUCTS SUCH RUBBER GLOVES, CONDOMS, DIAPHRAGMS, BALLOONS, SOCKS, OR UNDERWEAR?NO LATEX ALLERGY : HAVE YOU EVER DEVELOPED ANY TYPE OF REACTION DURING OR AFTER DENTAL APPOINTMENT, VAGINAL/RECTAL EXAMINATION, SURGICAL PROCEDURE, OR ANY OTHER EXPOSURE?NO LATEX RISK : HAVE YOU EVER HAD ANY DIFFICULTY BREATHING OR HIVES AFTER EATING OR HANDLING ANY FRUITS, OR VEGETABLES; SUCH KIWI, BANANAS, STONE FRUITS, OR CHESTNUTSNO LATEX RISK : DO YOU HAVE A PREVIOUS PERSONAL HISTORY OF MORE THAN NINE SURGERIES, SPINA BIFIDA, OR REPEATED CATHERIZATIONS? NO LATEX RISK : ARE YOU FREQUENTLY EXPOSED TO LATEX PRODUCTS IN YOUR OCCUPATION?NO DATE ASKED : 11/01/2019 CAFFEINE CAFFEINE USE?YES HOW OFTEN AND HOW MUCH? 3 CUPS DAILY ADVANCE DIRECTIVE ADVANCE DIRECTIVE DISCUSSED WITH PATIENT:YES PT HAS NO ADVANCED DIRECTIVES, DECLINES INFORMATION AT THIS TIME MARITAL STATUS: . ALCOHOL SCREENING DID YOU HAVE A DRINK CONTAINING ALCOHOL IN THE PAST YEAR?YES HOW OFTEN DID YOU HAVE SIX OR MORE DRINKS ON ONE OCCASION IN THE PAST YEAR?NEVER (0 POINTS) HOW MANY DRINKS DID YOU HAVE ON A TYPICAL DAY WHEN YOU WERE DRINKING IN THE PAST YEAR?1 OR 2 (0 POINTS) HOW OFTEN DID YOU HAVE A DRINK CONTAINING ALCOHOL IN THE PAST YEAR?MONTHLY OR LESS (1 POINT) POINTS1 INTERPRETATIONNEGATIVE OCCUPATION: UNEMPLOYED. SEXUAL HX HAD SEX IN THE LAST 12 MONTHS (VAGINAL, ORAL, OR ANAL)?: YES, WITH: MEN ONLY, USE PROTECTION?: NO, HAVE YOU EVER HAD AN STD?: NO, LMP:: 08/20/10. REVIEWED WITH PT 06/09/18 1120 LASREVIEWED WITH PT 08/08/18 1031 BVREVIEWED WITH PATIENT 09/03/19 1112 JSREVIEWED WITH PATIENT 11-01-19 DS. HOSPITALIZATION/MAJOR DIAGNOSTIC PROCEDURE ASTHMA ATTACK, WAS INTUBATED AND AN INPATIENT X 7 DAYS 2015 REVIEW OF SYSTEMS REVIEWED BY: PROVIDER: . CONSTITUTIONAL: ANY CHANGE IN YOUR MEDICAL CONDITION? NO . CHILLS NO . FEVER NO . INFECTION: DO YOU HAVE NEW INFECTIONS? NO . DO YOU HAVE HISTORY OF MRSA? NO . MUSCULOSKELETAL: ANY NEW PATTERNS OF PAIN OR NUMBNESS? NO . GASTROENTEROLOGY: ANY NEW CHANGE IN BOWEL CONTROL? NO . GENITOURINARY: ANY NEW CHANGE IN BLADDER CONTROL? NO . IS THERE A CHANCE YOU COULD BE ? NO . HEMATOLOGY/LYMPH: DO YOU TAKE ANY BLOOD THINNERS? (FOR EXAMPLE- COUMADIN, PLAVIX, AGGRENOX, PLATEL, PRADAXA, OR XARELTO) NO . WHEN WAS YOUR LAST DOSE? DATE: TIME: . NEUROLOGY: HAVE YOU FALLEN IN THE PAST 12 MONTHS? YES, PT STATES THAT SHE FELL WHILE AT HOME, NO INJURY FROM FALL, SORE, DID NOT REPORT TO ED. DS . ANY NEW EXTREMITY NUMBNESS OR WEAKNESS? NO . CARDIOLOGY: DO YOU HAVE A PACEMAKER OR DEFIBRILLATOR? NO . RESPIRATORY: HAVE YOU BEEN SICK IN THE PAST WEEK? NO . FEVER NO . FLU LIKE SYMPTOMS? NO . COUGH NO . INTEGUMENTARY: DO YOU HAVE ANY RASHES OR OPEN SORES? NO . ALLERGIC/IMMUNO: ARE YOU ALLERGIC TO IV DYE? NO . ANY NEW ALLERGIES? NO . PSYCHIATRIC: DO YOU HAVE THOUGHTS OF HURTING YOURSELF OR SOMEONE ELSE? NO . ARE YOU ABUSED, NEGLECTED, OR IN AN UNSAFE ENVIRONMENT? NO . ENDOCRINOLOGY: ARE YOU DIABETIC? NO . OTHER: DO YOU NEED ANY PRESCRIPTIONS? NO . IF YES, PLEASE LIST: ____ . ANY NEW PROBLEMS WITH YOUR MEDICATIONS? NO . WHEN DID YOU LAST EAT? 1-8 830PM . WHEN DID YOU LAST DRINK? 1-9 9AM . WHAT DID YOU LAST DRINK? WATER . NAME OF PERSON DRIVING YOU HOME? MYNOR HALL . DO YOU HAVE ANY OTHER QUESTIONS OR CONCERNS NO . VITAL SIGNS WT 133 LBS, HT 62.25 IN, BMI 24.13 INDEX, BP 135/85 MM HG, HR 85 /MIN, RR 16 /MIN, TEMP 97.7 F, OXYGEN SAT % 99%, SAFE IN ENV? (Y/N) Y, NA INITIALS SC 11:50, REVIEWED BY: DS. ASSESSMENTS MYALGIA, OTHER SITE - M79.18 (PRIMARY) PROCEDURES PN TRIGGER POINT INJECTION WITH STEROIDS PRE PROCEDURE DIAGNOSIS 1. MYALGIA 2. PAIN AT BILATERAL NECK AREA, BILATERAL SHOULDER AREA, BILATERAL THORACIC AREA POST PROCEDURE DIAGNOSIS 1. MYALGIA 2. PAIN AT BILATERAL NECK AREA, BILATERAL SHOULDER AREA, BILATERAL THORACIC AREA PROCEDURE TRIGGER POINT INJECTION AT RIGHT AND LEFT NECK AREA, RIGHT AND LEFT SHOULDER AREA, AND RIGHT AND LEFT THORACIC AREA SURGEON DR. CARLOTTA SIMMONS SUPERVISOR SCOURING PADS NONE ANESTHESIA LOCAL PRE PROCEDURE NOTE THE PATIENT HAS A HISTORY OF CHRONIC PAIN AT THE RIGHT AND LEFT NECK AREA, RIGHT AND LEFT SHOULDER AREA, AND RIGHT AND LEFT THORACIC AREA. I EVALUATED THE PATIENT AND REVIEWED THE CHART. THERE IS EVIDENCE OF BANDS OF TISSUE WITH RESTRICTION OF MOVEMENT AND PRESENCE OF TRIGGER POINT AT THE AFFECTED AREAS. I WENT OVER THE RISKS, ALTERNATIVES, AND BENEFITS ASSOCIATED WITH THIS PROCEDURE. THE PATIENT WOULD LIKE TO PROCEED AND GIVES CONSENT TO PERFORM THE PROCEDURE. THE PATIENT DENIES UNEXPLAINABLE WEIGHT LOSS, FEVER, CHILLS, OR NEW CHANGES IN URINARY OR BOWEL CONTROL DESCRIPTION OF PROCEDURE THE PATIENT WAS BROUGHT TO THE PROCEDURE ROOM AND PLACED IN THE SITTING POSITION. THE AREA WAS CLEANED WITH ALCOHOL. THE PROCEDURE WAS DONE USING ASEPTIC STERILE TECHNIQUE. I CHECKED LATERALITY AND THE LEVEL WHERE THE PROCEDURE WAS GOING TO BE PERFORMED WITH THE PATIENT AND THE SUPPORTING STAFF AT THE MOMENT OF THE TIME OUT IN THE PROCEDURE ROOM. USING A 25-GAUGE NEEDLE, TRIGGER POINTS WERE INJECTED AT THE RIGHT AND LEFT NECK AREA, RIGHT AND LEFT SHOULDER AREA, AND RIGHT AND LEFT THORACIC AREA WITH A TOTAL OF 40 ML OF BUPIVACAINE 0.25% AND KENALOG 40 MG. THERE WAS NO EVIDENCE OF BLOOD, PARESTHESIA OR CEREBROSPINAL FLUID DURING THE PROCEDURE. THE PATIENT WAS SENT TO THE RECOVERY ROOM. THE PATIENT WAS MOVING THE EXTREMITIES AND DOING WELL. THERE WAS NO COMPLICATION DURING THE PROCEDURE POST PROCEDURE NOTE THE PATIENT WILL BE SEEN IN A FOLLOW UP IN THE NEXT FEW WEEKS. I AM LOOKING FOR LONG-LASTING PAIN RELIEF WITH THIS INTERVENTION. INSTRUCTIONS WERE GIVEN, QUESTIONS WERE ANSWERED, AND THE PATIENT EXPRESSED UNDERSTANDING AND AGREES WITH THE PLAN. I, KANIKA LONG, DOCUMENTED THE ABOVE INFORMATION ACTING A SCRIBE FOR DR. SIMMONS. I HAVE REVIEWED THE ABOVE DOCUMENT, WRITTEN BY MASHA ROSALES, AND I VERIFY THAT IT IS ACCURATE PROCEDURE CODES 00228 INJECT TRIGGER POINTS, =/> 3 DISPOSITION & COMMUNICATION FOLLOW UP 3 WEEKS ELECTRONICALLY SIGNED BY CARLOTTA SIMMONS MD, MD ON 11/07/2019 AT 01:38 PM EST DISCLAIMER : THIS IS A VISIT SUMMARY EXTRACTED FROM THE [email or web address] CHART. IT IS NOT A COPY OF THE [email or web address] PROGRESS NOTE. VIJAY
== END ==
LOC: M PAIN 11:45
PROVIDERS: ATTEND Anesthesiology
DX: M79.18 Myalgia, other site (principal)
CPT/HCPCS: 20553; J3301

== ENCOUNTER → 2019-11-23 | Outpatient (CLI) | payer BC ==
[~2019-11-23] MED LIST changes: -BUPIVACAINE HCL 0.25% 30 ML VIAL As Ordered ONE; -TRIAMCINOLONE ACETONIDE SUSP 40 MG/ML VIAL (J3301) As Ordered ONE; -diazePAM 5 MG TAB As Ordered ONE; -oxyCODONE 5MG TAB As Ordered ONE
--- NOTE | 2019-11-24 03:53 | ECWPNPC ---
PATIENT NAME: THERESE HALL : 1970 GENDER: FEMALE VISIT DATE: 11/23/2019 DISCHARGE DATE: 11/23/19 1338 VISIT LOCKED DATE TIME: PHYSICIAN: ANNEMARIE CORADO RESOURCE: ANNEMARIE CORADO REASON FOR APPOINTMENT 1. POST TPI HISTORY OF PRESENT ILLNESS HISTORY OF PRESENT ILLNESS: HERE FOR POST PROCEDURE FOLLOW-UP. HAD TRIGGER POINT INJECTIONS, BILATERAL NECK, SHOULDER AND THORACIC REGION ON 11/01/2019. REPORTING SIGNIFICANT REDUCTION IN PAIN. PAIN IS GONE DOWN FROM AN 8-8-3/10 VAS. RECENTLY STARTED ON LYRICA 75 MG TWICE A DAY BY PRIMARY CARE FOR FIBROMYALGIA. PAIN THE PATIENT DESCRIBES THE PAIN... FALL RISK SCREENING: SCREENING :NO FALLS REPORTED IN THE LAST YEAR CURRENT MEDICATIONS TAKING IBUPROFEN 800 MG TABLET 1 TABLET ORALLY Q8H TAKING MULTIVITAMINS OTC TABLET 1 TAB(S) ORALLY DAILY TAKING DULOXETINE HCL 60 MG CAPSULE DELAYED RELEASE PARTICLES 1 CAPSULE ORALLY BID TAKING MONTELUKAST SODIUM 10 MG TABLET 1 TABLET ORALLY ONCE A DAY TAKING TRAZODONE HCL 100 MG TABLET 1 TABLET AT BEDTIME ORALLY ONCE A DAY TAKING CYCLOBENZAPRINE HCL 10 MG TABLET 1 TABLET NEEDED ORALLY THREE TIMES A DAY TAKING BREO ELLIPTA 200-25 MCG/INH AEROSOL POWDER BREATH ACTIVATED 1 PUFF INHALATION ONCE A DAY TAKING BENADRYL ALLERGY 25 MG TABLET 1 TABLET NEEDED ORALLY EVERY 8 HRS TAKING FISH OIL 1200 MG CAPSULE 1 CAPSULE ORALLY ONCE A DAY TAKING MARYAN ALLERGY 180 MG TABLET 1 TABLET NEEDED ORALLY ONCE A DAY TAKING TRAMADOL HCL 50 MG TABLET 1 TABLET NEEDED ORALLY EVERY 6 HRS PRN MDD4 #60TAB SHOULD LAST 30 DAYS, NOTES: TAKES VERY RARELY TAKING LYRICA 75 MG CAPSULE 1 CAPSULE ORALLY BID NOT-TAKING VENTOLIN HFA 108 (90 BASE) MCG/ACT AEROSOL SOLUTION 2 PUFFS NEEDED INHALATION EVERY 6 HRS, NOTES: NONE RECENTLY MEDICATION LIST REVIEWED AND RECONCILED WITH THE PATIENT PAST MEDICAL HISTORY URINARY FREQUENCY/STRESS INCONTINENCE ASTHMA FIBROMYALGIA CHRONIC PAIN , NECK PAIN , DJD DEPRESSION PALPITATIONS ARTHRITIS ALLERGIES ENVIRONMENTAL: POST NASAL DRIP - ALLERGY SURGICAL HISTORY COLONOSCOPY 2007 REMOVAL BREAST CYSTS THROUGH NEEDLE ASPIRATION 2009 HYSTERECTOMY 2011 FAMILY HISTORY FATHER: 63 YRS, LUNG CANCER, DIAGNOSED WITH OTHER MALIGNANT NEOPLASM OF UNSPECIFIED SITE MOTHER: ALIVE 79 YRS SIBLINGS: SISTER- HAS HAD M.I. 2 SISTER(S) - HEALTHY. 2 SON(S) - HEALTHY. DAD LR/T LUNG CANCERMOM, BOTH SISTERS DIAGNOSED WITH ARTHRITIS. SOCIAL HISTORY GENERAL: TOBACCO USE ARE YOU A:CURRENT SMOKER ARE YOU INTERESTED IN QUITTING?READY TO QUIT ACTIVELY TRYING TO QUIT AT THIS TIME COUNSELED THE PATIENT ON TOBACCO USE, CESSATION [id number]/2020 HOW MANY CIGARETTES A DAY DO YOU SMOKE?5 OR LESS HOW SOON AFTER YOU WAKE UP DO YOU SMOKE YOUR FIRST CIGARETTE?AFTER 60 MIN HOW OFTEN DO YOU SMOKE CIGARETTES?EVERY DAY PATIENT COUNSELED ON THE DANGERS OF TOBACCO USE AND URGED TO QUIT:11/23/2019 OTHERS AT HOME: SPOUSE, CHILDREN. LANGUAGE LANGUAGES SPOKEN:THAI DOMESTIC VIOLENCE DO YOU FEEL SAFE IN YOUR ENVIRONMENT?YES RECREATIONAL DRUG USE DRUG USE?NO EXERCISE: DAILY 30 MINS CARDIO. LEARNING BARRIERS / SPECIAL NEEDS BARRIERS TO LEARNING?NO HEARING IMPAIRED?NO VISION IMPAIRED?NO COGNITIVELY IMPAIRED?NO READINESS TO LEARN?YES LEARNING PREFERENCES?NO LEARNING CAPABILITIES PRESENT?YES EMOTIONAL BARRIERS?NO SPECIAL DEVICES?NO TRAILER TECHNICIAN NEEDED?NO PAIN CLINIC PFS, CLERGY, PUBLIC HEALTH REFERRALS WAS THE PROVIDER NOTIFIED OF ANY PERTINENT INFO?YES HAS THE PATIENT BEEN EDUCATED REGARDING HIS/HER PLAN OF CARE?YES HAS THE PATIENT BEEN EDUCATED REGARDING PAIN, THE RISK FOR PAIN, THE IMPORTANCE OF EFFECTIVE PAIN MANAGEMENT, AND THE PAIN ASSESSMENT PROCESS?YES LATEX QUESTIONNAIRE LATEX ALLERGY : HAVE YOU EVER DEVELOPED ANY TYPE OF REACTION AFTER HANDLING LATEX PRODUCTS SUCH RUBBER GLOVES, CONDOMS, DIAPHRAGMS, BALLOONS, SOCKS, OR UNDERWEAR?NO LATEX ALLERGY : HAVE YOU EVER DEVELOPED ANY TYPE OF REACTION DURING OR AFTER DENTAL APPOINTMENT, VAGINAL/RECTAL EXAMINATION, SURGICAL PROCEDURE, OR ANY OTHER EXPOSURE?NO LATEX RISK : HAVE YOU EVER HAD ANY DIFFICULTY BREATHING OR HIVES AFTER EATING OR HANDLING ANY FRUITS, OR VEGETABLES; SUCH KIWI, BANANAS, STONE FRUITS, OR CHESTNUTSNO LATEX RISK : DO YOU HAVE A PREVIOUS PERSONAL HISTORY OF MORE THAN NINE SURGERIES, SPINA BIFIDA, OR REPEATED CATHERIZATIONS? NO LATEX RISK : ARE YOU FREQUENTLY EXPOSED TO LATEX PRODUCTS IN YOUR OCCUPATION?NO DATE ASKED : 11/01/2019 CAFFEINE CAFFEINE USE?YES HOW OFTEN AND HOW MUCH? 3 CUPS DAILY ADVANCE DIRECTIVE ADVANCE DIRECTIVE DISCUSSED WITH PATIENT:YES 11/23/2019 PT HAS NO ADVANCED DIRECTIVES, DECLINES INFORMATION AT THIS TIME. JS MARITAL STATUS: . ALCOHOL SCREENING DID YOU HAVE A DRINK CONTAINING ALCOHOL IN THE PAST YEAR?YES HOW OFTEN DID YOU HAVE SIX OR MORE DRINKS ON ONE OCCASION IN THE PAST YEAR?NEVER (0 POINTS) HOW MANY DRINKS DID YOU HAVE ON A TYPICAL DAY WHEN YOU WERE DRINKING IN THE PAST YEAR?1 OR 2 (0 POINTS) HOW OFTEN DID YOU HAVE A DRINK CONTAINING ALCOHOL IN THE PAST YEAR?MONTHLY OR LESS (1 POINT) POINTS1 INTERPRETATIONNEGATIVE OCCUPATION: UNEMPLOYED. SEXUAL HX HAD SEX IN THE LAST 12 MONTHS (VAGINAL, ORAL, OR ANAL)?: YES, WITH: MEN ONLY, USE PROTECTION?: NO, HAVE YOU EVER HAD AN STD?: NO, LMP:: 08/20/10. REVIEWED WITH PT 06/09/18 1120 LASREVIEWED WITH PT 08/08/18 1031 BVREVIEWED WITH PATIENT 09/03/19 1112 JSREVIEWED WITH PATIENT 11-01-19 DSREVIEWED WITH PATIENT 11/23/2019 1323 JS. HOSPITALIZATION/MAJOR DIAGNOSTIC PROCEDURE ASTHMA ATTACK, WAS INTUBATED AND AN INPATIENT X 7 DAYS 2015 REVIEW OF SYSTEMS REVIEWED BY: PROVIDER: ANNEMARIE SINGH . CONSTITUTIONAL: ANY CHANGE IN YOUR MEDICAL CONDITION? NO . CHILLS NO . FEVER NO . INFECTION: DO YOU HAVE NEW INFECTIONS? NO . DO YOU HAVE HISTORY OF MRSA? NO . MUSCULOSKELETAL: ANY NEW PATTERNS OF PAIN OR NUMBNESS? YES, STATES PAIN MUCH BETTER IN NECK SINCE TRIGGER POINT INJECTIONS . GASTROENTEROLOGY: ANY NEW CHANGE IN BOWEL CONTROL? NO . GENITOURINARY: ANY NEW CHANGE IN BLADDER CONTROL? NO . IS THERE A CHANCE YOU COULD BE ? NO . HEMATOLOGY/LYMPH: DO YOU TAKE ANY BLOOD THINNERS? (FOR EXAMPLE- COUMADIN, PLAVIX, AGGRENOX, PLATEL, PRADAXA, OR XARELTO) NO . WHEN WAS YOUR LAST DOSE? DATE: TIME: . NEUROLOGY: HAVE YOU FALLEN IN THE PAST 12 MONTHS? YES, STATES PRIOR TO LAST VISIT, DISCUSSED AT PREVIOUS VISIT . ANY NEW EXTREMITY NUMBNESS OR WEAKNESS? NO . CARDIOLOGY: DO YOU HAVE A PACEMAKER OR DEFIBRILLATOR? NO . RESPIRATORY: HAVE YOU BEEN SICK IN THE PAST WEEK? NO . FEVER NO . FLU LIKE SYMPTOMS? NO . COUGH NO . INTEGUMENTARY: DO YOU HAVE ANY RASHES OR OPEN SORES? NO . ALLERGIC/IMMUNO: ARE YOU ALLERGIC TO IV DYE? NO . ANY NEW ALLERGIES? NO . PSYCHIATRIC: DO YOU HAVE THOUGHTS OF HURTING YOURSELF OR SOMEONE ELSE? NO . ARE YOU ABUSED, NEGLECTED, OR IN AN UNSAFE ENVIRONMENT? NO . ENDOCRINOLOGY: ARE YOU DIABETIC? NO . OTHER: DO YOU NEED ANY PRESCRIPTIONS? YES . IF YES, PLEASE LIST: ____POSSIBLY WOULD LIKE SOMETHING TO HELP MORE WITH THE PAIN. HOWEVER SHE JUST STARTED LYRICA AND WOULD MAYBE LIKE TO SEE HOW THAT WORKS FIRST . ANY NEW PROBLEMS WITH YOUR MEDICATIONS? NO . WHEN DID YOU LAST EAT? ____ . WHEN DID YOU LAST DRINK? ____ . WHAT DID YOU LAST DRINK? ____ . NAME OF PERSON DRIVING YOU HOME? ____ . DO YOU HAVE ANY OTHER QUESTIONS OR CONCERNS NO . VITAL SIGNS WT 133.6 LBS, HT 62.25 IN, BMI 24.24 INDEX, BP 140/78 MM HG, HR 94 /MIN, RR 16 /MIN, TEMP 97.6 F, OXYGEN SAT % 97%, SAFE IN ENV? (Y/N) YES, REVIEWED BY: KASANDRA. EXAMINATION GENERAL EXAMINATION: GENERAL AWAKE,ALERT. PSYCH AFFECT NORMAL . LUNGS: LUNG GLASGOW ARE CLEAR TO AUSCULTATION BILATERALLY. GOOD MOVEMENT OF AIR . HEART: S1, S2 IN A REGULAR RATE AND RHYTHM. NO SIGNIFICANT MURMURS, RUBS OR GALLOPS NOTED . ASSESSMENTS MYALGIA, OTHER SITE - M79.18 (PRIMARY) DISPOSITION & COMMUNICATION FOLLOW UP 2 MONTHS (REASON: NECK PAIN/FIBROMYALGIA) ELECTRONICALLY SIGNED BY FRANCISCO GOLDEN ON 11/23/2019 AT 01:43 PM EST DISCLAIMER : THIS IS A VISIT SUMMARY EXTRACTED FROM THE [employer] CHART. IT IS NOT A COPY OF THE [employer] PROGRESS NOTE. VIJAY
== END ==
LOC: M PAIN 13:00
PROVIDERS: ATTEND Nurse Practitioner Family
DX: M79.18 Myalgia, other site (principal); J45.909 Unspecified asthma, uncomplicated; Z86.59 Personal history of other mental and behavioral disorders; F17.210 Nicotine dependence, cigarettes, uncomplicated; Z79.51 Long term (current) use of inhaled steroids; Z79.899 Other long term (current) drug therapy

== ENCOUNTER → 2020-03-03 | Outpatient (CLI) | payer BC ==
[~2020-03-03] MED LIST changes: +CYCL-707 PO; -CYCL10TA PO; -MONT10TA2 PO; +MONT10TA4 PO
--- NOTE | 2020-03-05 04:04 | ECWPNPC ---
PATIENT NAME: THERESE HALL : 1970 GENDER: FEMALE VISIT DATE: 03/03/2020 DISCHARGE DATE: 03/03/20 1229 VISIT LOCKED DATE TIME: PHYSICIAN: ANNEMARIE CORADO RESOURCE: ANNEMARIE CORADO REASON FOR APPOINTMENT 1. 6-8 WEEKS, PRE PROCEDURE HISTORY OF PRESENT ILLNESS HISTORY OF PRESENT ILLNESS: HERE FOR FOLLOW-UP OF CHRONIC GENERALIZED BODY PAIN WITH HISTORY OF FIBROMYALGIA. PAIN HAS BEEN AGGRAVATED LATELY. CHIEF AREA OF PAIN IS CENTRAL LOW BACK. PAIN IS AGGRAVATED BY ACTIVITY AND RELIEVED SOMEWHAT AT REST. RATING PAIN LEVEL A 7/10 VAS. HAS RESPONDED WELL TO TRIGGER POINT INJECTIONS. SHE WOULD LIKE TO CONSIDER PROCEDURES FOR HER LOWER BACK. DISCUSSED MEDICATION AND TREATMENT OPTIONS. PAIN THE PATIENT DESCRIBES THE PAIN... FALL RISK SCREENING: SCREENING :NO FALLS REPORTED IN THE LAST YEAR CURRENT MEDICATIONS TAKING IBUPROFEN 800 MG TABLET 1 TABLET ORALLY Q8H TAKING MULTIVITAMINS OTC TABLET 1 TAB(S) ORALLY DAILY TAKING DULOXETINE HCL 60 MG CAPSULE DELAYED RELEASE PARTICLES 1 CAPSULE ORALLY BID TAKING MONTELUKAST SODIUM 10 MG TABLET 1 TABLET ORALLY ONCE A DAY TAKING TRAZODONE HCL 100 MG TABLET 1 TABLET AT BEDTIME ORALLY ONCE A DAY TAKING CYCLOBENZAPRINE HCL 10 MG TABLET 1 TABLET NEEDED ORALLY THREE TIMES A DAY TAKING BREO ELLIPTA 200-25 MCG/INH AEROSOL POWDER BREATH ACTIVATED 1 PUFF INHALATION ONCE A DAY TAKING BENADRYL ALLERGY 25 MG TABLET 1 TABLET NEEDED ORALLY EVERY 8 HRS TAKING FISH OIL 1200 MG CAPSULE 1 CAPSULE ORALLY ONCE A DAY TAKING MARYAN ALLERGY 180 MG TABLET 1 TABLET NEEDED ORALLY ONCE A DAY TAKING LYRICA 150 MG CAPSULE 1 CAPSULE ORALLY BID NOT-TAKING TRAMADOL HCL 50 MG TABLET 1 TABLET NEEDED ORALLY EVERY 6 HRS PRN MDD4 #60TAB SHOULD LAST 30 DAYS, NOTES: TAKES VERY RARELY NOT-TAKING VENTOLIN HFA 108 (90 BASE) MCG/ACT AEROSOL SOLUTION 2 PUFFS NEEDED INHALATION EVERY 6 HRS, NOTES: NONE RECENTLY MEDICATION LIST REVIEWED AND RECONCILED WITH THE PATIENT PAST MEDICAL HISTORY URINARY FREQUENCY/STRESS INCONTINENCE ASTHMA FIBROMYALGIA CHRONIC PAIN , NECK PAIN , DJD DEPRESSION PALPITATIONS ARTHRITIS ALLERGIES ENVIRONMENTAL: POST NASAL DRIP - ALLERGY SURGICAL HISTORY COLONOSCOPY 2007 REMOVAL BREAST CYSTS THROUGH NEEDLE ASPIRATION 2009 HYSTERECTOMY 2011 FAMILY HISTORY FATHER: 63 YRS, LUNG CANCER, DIAGNOSED WITH OTHER MALIGNANT NEOPLASM OF UNSPECIFIED SITE MOTHER: ALIVE 79 YRS SIBLINGS: SISTER- HAS HAD M.I. 2 SISTER(S) - HEALTHY. 2 SON(S) - HEALTHY. DAD LR/T LUNG CANCERMOM, BOTH SISTERS DIAGNOSED WITH ARTHRITIS. SOCIAL HISTORY GENERAL: TOBACCO USE ARE YOU A:CURRENT SMOKER ARE YOU INTERESTED IN QUITTING?READY TO QUIT ACTIVELY TRYING TO QUIT AT THIS TIME COUNSELED THE PATIENT ON TOBACCO USE, CESSATION [id number]/11/2020 HOW MANY CIGARETTES A DAY DO YOU SMOKE?5 OR LESS HOW SOON AFTER YOU WAKE UP DO YOU SMOKE YOUR FIRST CIGARETTE?AFTER 60 MIN HOW OFTEN DO YOU SMOKE CIGARETTES?EVERY DAY PATIENT COUNSELED ON THE DANGERS OF TOBACCO USE AND URGED TO QUIT:11/23/2019 LATEX QUESTIONNAIRE LATEX ALLERGY : HAVE YOU EVER DEVELOPED ANY TYPE OF REACTION AFTER HANDLING LATEX PRODUCTS SUCH RUBBER GLOVES, CONDOMS, DIAPHRAGMS, BALLOONS, SOCKS, OR UNDERWEAR?NO LATEX ALLERGY : HAVE YOU EVER DEVELOPED ANY TYPE OF REACTION DURING OR AFTER DENTAL APPOINTMENT, VAGINAL/RECTAL EXAMINATION, SURGICAL PROCEDURE, OR ANY OTHER EXPOSURE?NO DATE ASKED : 11/01/2019 LATEX RISK : HAVE YOU EVER HAD ANY DIFFICULTY BREATHING OR HIVES AFTER EATING OR HANDLING ANY FRUITS, OR VEGETABLES; SUCH KIWI, BANANAS, STONE FRUITS, OR CHESTNUTSNO LATEX RISK : DO YOU HAVE A PREVIOUS PERSONAL HISTORY OF MORE THAN NINE SURGERIES, SPINA BIFIDA, OR REPEATED CATHERIZATIONS? NO LATEX RISK : ARE YOU FREQUENTLY EXPOSED TO LATEX PRODUCTS IN YOUR OCCUPATION?NO ALCOHOL SCREENING DID YOU HAVE A DRINK CONTAINING ALCOHOL IN THE PAST YEAR?YES HOW OFTEN DID YOU HAVE SIX OR MORE DRINKS ON ONE OCCASION IN THE PAST YEAR?NEVER (0 POINTS) HOW MANY DRINKS DID YOU HAVE ON A TYPICAL DAY WHEN YOU WERE DRINKING IN THE PAST YEAR?1 OR 2 (0 POINTS) HOW OFTEN DID YOU HAVE A DRINK CONTAINING ALCOHOL IN THE PAST YEAR?MONTHLY OR LESS (1 POINT) POINTS1 INTERPRETATIONNEGATIVE RECREATIONAL DRUG USE DRUG USE?NO CAFFEINE CAFFEINE USE?YES HOW OFTEN AND HOW MUCH? 3 CUPS DAILY SEXUAL HX HAD SEX IN THE LAST 12 MONTHS (VAGINAL, ORAL, OR ANAL)?: YES, WITH: MEN ONLY, USE PROTECTION?: NO, HAVE YOU EVER HAD AN STD?: NO, LMP:: 08/20/10. LANGUAGE LANGUAGES SPOKEN:URDU LEARNING BARRIERS / SPECIAL NEEDS BARRIERS TO LEARNING?NO HEARING IMPAIRED?NO VISION IMPAIRED?NO COGNITIVELY IMPAIRED?NO READINESS TO LEARN?YES LEARNING PREFERENCES?NO LEARNING CAPABILITIES PRESENT?YES EMOTIONAL BARRIERS?NO SPECIAL DEVICES?NO ROUTER SETTER NEEDED?NO DOMESTIC VIOLENCE DO YOU FEEL SAFE IN YOUR ENVIRONMENT?YES OCCUPATION: UNEMPLOYED. EXERCISE: DAILY 30 MINS CARDIO. MARITAL STATUS: . OTHERS AT HOME: SPOUSE, CHILDREN. NEW PATIENT PAIN DIARY TODAY'S VISIT 03/03/20 PATIENT DESCRIBES PAIN :IT COMES AND GOES, THROBBING FROM 0-10, WHAT LEVEL IS YOUR PAIN TODAY?6 PRECIPITATING FACTORS ACTIVITY ALLEVIATING FACTORS SLEEPING, MEDS IMPACT ON FUNCTION YES PAIN CLINIC PFS, CLERGY, PUBLIC HEALTH REFERRALS WAS THE PROVIDER NOTIFIED OF ANY PERTINENT INFO?YES HAS THE PATIENT BEEN EDUCATED REGARDING HIS/HER PLAN OF CARE?YES HAS THE PATIENT BEEN EDUCATED REGARDING PAIN, THE RISK FOR PAIN, THE IMPORTANCE OF EFFECTIVE PAIN MANAGEMENT, AND THE PAIN ASSESSMENT PROCESS?YES ADVANCE DIRECTIVE ADVANCE DIRECTIVE DISCUSSED WITH PATIENT:YES PT HAS NO ADVANCED DIRECTIVES, DECLINES INFORMATION AT THIS TIME. REVIEWED WITH PT 06/09/18 1120 LASREVIEWED WITH PT 08/08/18 1031 BVREVIEWED WITH PATIENT 09/03/19 1112 JSREVIEWED WITH PATIENT 11-01-19 DSREVIEWED WITH PATIENT 11/23/2019 1323 JS. HOSPITALIZATION/MAJOR DIAGNOSTIC PROCEDURE ASTHMA ATTACK, WAS INTUBATED AND AN INPATIENT X 7 DAYS 2015 REVIEW OF SYSTEMS REVIEWED BY: PROVIDER: ANNEMARIE SINGH . CONSTITUTIONAL: ANY CHANGE IN YOUR MEDICAL CONDITION? NO . CHILLS NO . FEVER NO . INFECTION: DO YOU HAVE NEW INFECTIONS? NO . DO YOU HAVE HISTORY OF MRSA? NO . MUSCULOSKELETAL: ANY NEW PATTERNS OF PAIN OR NUMBNESS? NO . GASTROENTEROLOGY: ANY NEW CHANGE IN BOWEL CONTROL? NO . GENITOURINARY: ANY NEW CHANGE IN BLADDER CONTROL? NO . IS THERE A CHANCE YOU COULD BE ? NO . HEMATOLOGY/LYMPH: DO YOU TAKE ANY BLOOD THINNERS? (FOR EXAMPLE- COUMADIN, PLAVIX, AGGRENOX, PLATEL, PRADAXA, OR XARELTO) NO . WHEN WAS YOUR LAST DOSE? DATE: TIME: . NEUROLOGY: HAVE YOU FALLEN IN THE PAST 12 MONTHS? NO . ANY NEW EXTREMITY NUMBNESS OR WEAKNESS? NO . CARDIOLOGY: DO YOU HAVE A PACEMAKER OR DEFIBRILLATOR? NO . RESPIRATORY: HAVE YOU BEEN SICK IN THE PAST WEEK? NO . FEVER NO . FLU LIKE SYMPTOMS? NO . COUGH NO . INTEGUMENTARY: DO YOU HAVE ANY RASHES OR OPEN SORES? NO . ALLERGIC/IMMUNO: ARE YOU ALLERGIC TO IV DYE? NO . ANY NEW ALLERGIES? NO . PSYCHIATRIC: DO YOU HAVE THOUGHTS OF HURTING YOURSELF OR SOMEONE ELSE? NO . ARE YOU ABUSED, NEGLECTED, OR IN AN UNSAFE ENVIRONMENT? NO . ENDOCRINOLOGY: ARE YOU DIABETIC? NO . OTHER: DO YOU NEED ANY PRESCRIPTIONS? NO . IF YES, PLEASE LIST: ____ . ANY NEW PROBLEMS WITH YOUR MEDICATIONS? NO . WHEN DID YOU LAST EAT? ____ . WHEN DID YOU LAST DRINK? ____ . WHAT DID YOU LAST DRINK? ____ . NAME OF PERSON DRIVING YOU HOME? ____ . DO YOU HAVE ANY OTHER QUESTIONS OR CONCERNS DISCUSS INJECTIONS IN BACK . VITAL SIGNS WT 137.2 LBS, HT 62.25 IN, BMI 24.89 INDEX, BP 142/79 MM HG, HR 74 /MIN, RR 16 /MIN, TEMP 96.0 F, OXYGEN SAT % 98%, SAFE IN ENV? (Y/N) Y, NA INITIALS AW 1124, REVIEWED BY: DEVIN. EXAMINATION GENERAL EXAMINATION: GENERAL AWAKE,ALERT ,PLEASANT . PSYCH AFFECT NORMAL . LUNGS: LUNG GLASGOW ARE CLEAR TO AUSCULTATION BILATERALLY. GOOD MOVEMENT OF AIR . HEART: S1, S2 IN A REGULAR RATE AND RHYTHM. NO SIGNIFICANT MURMURS, RUBS OR GALLOPS NOTED . MUSCULOSKELETAL:WEAKNESS NOTED OVER BILATERAL LOWER EXTREMITIES . LUMBAR: PALPATION: + FOR PAIN OVER L/S SPINE. + FOR PAIN OVER L/S PARASPINALS SLE: POSITIVE OVER LEFT LEG AT 45. MULTIPLE AREAS OF TENDER SPOTS INDICATIVE OF FIBROMYALGIA. ASSESSMENTS PRIMARY OSTEOARTHRITIS INVOLVING MULTIPLE JOINTS - M15.0 (PRIMARY) FIBROMYALGIA - M79.7 TREATMENT PRIMARY OSTEOARTHRITIS INVOLVING MULTIPLE JOINTS START MOBIC TABLET, 7.5 MG, 1 TABLET, ORALLY, BID, 30 DAY(S), 60 TABLET, REFILLS 1 [facility] SPINE, LUMBOSACRAL, [id number] NOTES: PT 2 TIMES A WEEK X6 WEEKS FOR LOW BACK PAIN,MOBILIZATION AND STRENGTH. START MOBIC 7.5 MG TWICE A DAY WITH FOOD. X-RAY OF THE LUMBAR SPINE. FOLLOW-UP WITH NURSE PRACTITIONER IN 6-8 WEEKS AND REVIEW FOR TREATMENT OPTIONS. OTHERS NOTES: MELOXICAM MATERIAL WAS PRINTED. PROCEDURE CODES FA211 ESTABILISHED PATIENT [facility] FACILITY CHARGE DISPOSITION & COMMUNICATION FOLLOW UP 2 MONTHS (REASON: POST PT/REVIEW LUMBAR XRAY) ELECTRONICALLY SIGNED BY FRANCISCO GOLDEN ON 03/04/2020 AT 03:39 PM EDT DISCLAIMER : THIS IS A VISIT SUMMARY EXTRACTED FROM THE [email or web address] CHART. IT IS NOT A COPY OF THE [email or web address] PROGRESS NOTE. VIJAY
== END ==
LOC: M PAIN 11:30
PROVIDERS: ATTEND Nurse Practitioner Family
DX: M15.0 Primary generalized (osteo)arthritis (principal); M79.7 Fibromyalgia; J45.909 Unspecified asthma, uncomplicated; Z86.59 Personal history of other mental and behavioral disorders; F17.210 Nicotine dependence, cigarettes, uncomplicated; Z79.51 Long term (current) use of inhaled steroids; Z79.899 Other long term (current) drug therapy

== ENCOUNTER → 2020-03-07 | Outpatient (CLI) | payer BC, OTHER ==
--- NOTE | 2020-03-07 16:48 | REP ---
LUMBOSACRAL SPINE, AP AND LATERAL: Three AP and lateral views of lumbosacral spine performed. No compression fracture is seen. There is minimal retrolisthesis of L4 on L5. This is unchanged since 02/04/2016 exam. There is moderate disc space narrowing, subchondral sclerosis, and spurring at L5-S1, with sclerosis and spurring at the posterior facet joints at that level as well. There is also slight retrolisthesis of L5 on S1. These findings also appear essentially stable. Posterior elements are intact. There is sclerosis at the sacroiliac joints bilaterally. IMPRESSION: Degenerative changes at L5-S1 appear stable compared to 02/04/2016. Electronically Signed by Costa Gallegos MD 03/07/2020 04:57 P
== END ==
LOC: M LAB 14:37 → M RAD 14:37
PROVIDERS: ATTEND Nurse Practitioner Family
DX: M15.0 Primary generalized (osteo)arthritis (principal)

== ENCOUNTER → 2020-05-05 | Outpatient (CLI) | payer BC, OTHER ==
--- NOTE | 2020-05-10 04:09 | ECWPNPC ---
PATIENT NAME: THERESE HALL : 1970 GENDER: FEMALE VISIT DATE: 05/05/2020 DISCHARGE DATE: 05/05/20 1425 VISIT LOCKED DATE TIME: PHYSICIAN: ANNEMARIE CORADO RESOURCE: ANNEMARIE CORADO REASON FOR APPOINTMENT 1. 2 MONTHS (REASON: POST PT/REVIEW LUMBAR XRAY HISTORY OF PRESENT ILLNESS GENERAL: HERE FOR FOLLOW-UP OF CHRONIC LOW BACK PAIN. ATTENDED PHYSICAL THERAPY FOR 6 WEEKS AND STATES PT MADE HER PAIN WORSE. STARTED MOBIC 7.5 MG TWICE A DAY, WHICH CAUSED HEADACHES SO SHE STOPPED AFTER 1 MONTH. X-RAY OF THE LUMBAR SPINE IS REVIEWED. SHOWING DEGENERATIVE CHANGES AT L5-S1 THAT ARE STABLE COMPARED TO 02/04/2016. CONTINUES TO COMPLAIN OF CONTINUOUS LOW BACK PAIN. WE WILL NEED AN MRI OF THE LS-SPINE TO EVALUATE FOR INTERVENTIONAL THERAPY. SHE HAS TRIED MULTIPLE MEDICATIONS WITHOUT IMPROVEMENT IN HER PAIN. -. FALL RISK SCREENING: SCREENING :ONE FALL WITHOUT INJURY IN THE PAST YEAR MARCH 26 PT STATES SHE WAS INBATHROOM STANDING AT SINK AND SLIPPED AND HIT SIND INJURING HER RIGHT RIB AREA BRUISING IS GONE E BUSINESS MANAGER THERE ...DID NOT GO TO URGENT CARE PAIN SCREENING: PATIENT HAS A COMPLAINT OF ACUTE OR CHRONIC PAIN :YES LOCATION OF PAIN:OTHER: PT STATES "ALL OVER" INTENSITY OF PAIN (SCALE OF 1 TO 10):4 WHAT DOES YOUR PAIN FEEL LIKE:CONTINOUS, SHARP, STABBING, SORE PAIN IS INCREASED BY:ACTIVITIES, OTHERS PAIN IS DECREASED BY: DECREASED BY REST AND WALKING PAIN HAS INTERFERED WITH THE FOLLOWING:MOOD, SLEEP NURSING NOTE: -. PAIN CENTER INTAKE QUESTIONS: DO YOU HAVE A HISTORY OF MRSA? :NO DO YOU TAKE A BLOOD THINNERS? :NO DO YOU HAVE ANY BLEEDING DISORDERS? :NO ANY NEW NUMBNESS OR WEAKNESS IN YOUR LEGS OR ARMS? :NO ANY PACEMAKER,DEFIBRILLATOR, OR DORSAL COLUMN STIMULATOR? :NO DO YOU HAVE ANY RASHES OR OPEN SORES? :NO ARE YOU ALLERGIC TO IV DYE? :NO ARE YOU DIABETIC? :NO ANY NEW PROBLEMS WITH YOUR MEDICATIONS? :NO HAVE YOU RECEIVED A VACCINE IN THE PAST 30 DAYS? :NO DO YOU PLAN TO RECEIVE A VACCINE IN THE NEXT 21 DAYS? :NO DO YOU TAKE ANY IMMUNOSUPPRESSIVE MEDICATIONS? :NO ANY HISTORY OF SEIZURES? :NO ANY HISTORY OF CARDIAC ISSUES OR EVENTS? :NO DO YOU HAVE SLEEP APNEA? :NO ANY RECENT HEAD INJURY? :NO DO YOU HAVE ANY NEW INFECTIONS? :NO IS THERE A CHANCE YOU COULD BE ? :NO ARE YOU BREAST FEEDING? :NO WHEN DID YOU LAST EAT? : - WHEN DID YOU LAST DRINK? : - WHAT DID YOU LAST DRINK? : - NAME OF PERSON DRIVING YOU HOME? : - DO YOU HAVE ANY OTHER QUESTIONS OR CONCERNS? : - CURRENT MEDICATIONS TAKING IBUPROFEN 800 MG TABLET 1 TABLET ORALLY Q8H TAKING MULTIVITAMINS OTC TABLET 1 TAB(S) ORALLY DAILY TAKING DULOXETINE HCL 60 MG CAPSULE DELAYED RELEASE PARTICLES 1 CAPSULE ORALLY BID TAKING MONTELUKAST SODIUM 10 MG TABLET 1 TABLET ORALLY ONCE A DAY TAKING TRAZODONE HCL 100 MG TABLET 1 TABLET AT BEDTIME ORALLY ONCE A DAY TAKING CYCLOBENZAPRINE HCL 10 MG TABLET 1 TABLET NEEDED ORALLY THREE TIMES A DAY TAKING BREO ELLIPTA 200-25 MCG/INH AEROSOL POWDER BREATH ACTIVATED 1 PUFF INHALATION ONCE A DAY TAKING BENADRYL ALLERGY 25 MG TABLET 1 TABLET NEEDED ORALLY EVERY 8 HRS TAKING FISH OIL 1200 MG CAPSULE 1 CAPSULE ORALLY ONCE A DAY TAKING MARYAN ALLERGY 180 MG TABLET 1 TABLET NEEDED ORALLY ONCE A DAY NOT-TAKING LYRICA 150 MG CAPSULE 1 CAPSULE ORALLY BID NOT-TAKING MOBIC 7.5 MG TABLET 1 TABLET ORALLY BID NOT-TAKING TRAMADOL HCL 50 MG TABLET 1 TABLET NEEDED ORALLY EVERY 6 HRS PRN MDD4 #60TAB SHOULD LAST 30 DAYS, NOTES: TAKES VERY RARELY NOT-TAKING VENTOLIN HFA 108 (90 BASE) MCG/ACT AEROSOL SOLUTION 2 PUFFS NEEDED INHALATION EVERY 6 HRS, NOTES: NONE RECENTLY MEDICATION LIST REVIEWED AND RECONCILED WITH THE PATIENT PAST MEDICAL HISTORY URINARY FREQUENCY/STRESS INCONTINENCE ASTHMA FIBROMYALGIA CHRONIC PAIN , NECK PAIN , DJD DEPRESSION PALPITATIONS ARTHRITIS ALLERGIES ENVIRONMENTAL: POST NASAL DRIP - ALLERGY SURGICAL HISTORY COLONOSCOPY 2008 REMOVAL BREAST CYSTS THROUGH NEEDLE ASPIRATION 2009 HYSTERECTOMY 2012 FAMILY HISTORY FATHER: 63 YRS, LUNG CANCER, DIAGNOSED WITH OTHER MALIGNANT NEOPLASM OF UNSPECIFIED SITE MOTHER: ALIVE 79 YRS SIBLINGS: SISTER- HAS HAD M.I. 2 SISTER(S) - HEALTHY. 2 SON(S) - HEALTHY. DAD LR/T LUNG CANCERMOM, BOTH SISTERS DIAGNOSED WITH ARTHRITIS. SOCIAL HISTORY GENERAL: TOBACCO USE ARE YOU A:CURRENT SMOKER ARE YOU INTERESTED IN QUITTING?READY TO QUIT ACTIVELY TRYING TO QUIT AT THIS TIME COUNSELED THE PATIENT ON TOBACCO USE, CESSATION [id number]/11/2020 HOW MANY CIGARETTES A DAY DO YOU SMOKE?5 OR LESS HOW SOON AFTER YOU WAKE UP DO YOU SMOKE YOUR FIRST CIGARETTE?AFTER 60 MIN HOW OFTEN DO YOU SMOKE CIGARETTES?EVERY DAY PATIENT COUNSELED ON THE DANGERS OF TOBACCO USE AND URGED TO QUIT:05/05/2020 LATEX QUESTIONNAIRE LATEX ALLERGY : HAVE YOU EVER DEVELOPED ANY TYPE OF REACTION AFTER HANDLING LATEX PRODUCTS SUCH RUBBER GLOVES, CONDOMS, DIAPHRAGMS, BALLOONS, SOCKS, OR UNDERWEAR?NO LATEX ALLERGY : HAVE YOU EVER DEVELOPED ANY TYPE OF REACTION DURING OR AFTER DENTAL APPOINTMENT, VAGINAL/RECTAL EXAMINATION, SURGICAL PROCEDURE, OR ANY OTHER EXPOSURE?NO DATE ASKED : 11/01/2019 LATEX RISK : HAVE YOU EVER HAD ANY DIFFICULTY BREATHING OR HIVES AFTER EATING OR HANDLING ANY FRUITS, OR VEGETABLES; SUCH KIWI, BANANAS, STONE FRUITS, OR CHESTNUTSNO LATEX RISK : DO YOU HAVE A PREVIOUS PERSONAL HISTORY OF MORE THAN NINE SURGERIES, SPINA BIFIDA, OR REPEATED CATHERIZATIONS? NO LATEX RISK : ARE YOU FREQUENTLY EXPOSED TO LATEX PRODUCTS IN YOUR OCCUPATION?NO ALCOHOL SCREENING DID YOU HAVE A DRINK CONTAINING ALCOHOL IN THE PAST YEAR?YES HOW OFTEN DID YOU HAVE SIX OR MORE DRINKS ON ONE OCCASION IN THE PAST YEAR?NEVER (0 POINTS) HOW MANY DRINKS DID YOU HAVE ON A TYPICAL DAY WHEN YOU WERE DRINKING IN THE PAST YEAR?1 OR 2 (0 POINTS) HOW OFTEN DID YOU HAVE A DRINK CONTAINING ALCOHOL IN THE PAST YEAR?MONTHLY OR LESS (1 POINT) POINTS1 INTERPRETATIONNEGATIVE RECREATIONAL DRUG USE DRUG USE?NO CAFFEINE CAFFEINE USE?YES HOW OFTEN AND HOW MUCH? 3 CUPS DAILY SEXUAL HX HAD SEX IN THE LAST 12 MONTHS (VAGINAL, ORAL, OR ANAL)?: YES, WITH: MEN ONLY, USE PROTECTION?: NO, HAVE YOU EVER HAD AN STD?: NO, LMP:: 08/20/10. LANGUAGE LANGUAGES SPOKEN:TURKMEN LEARNING BARRIERS / SPECIAL NEEDS BARRIERS TO LEARNING?NO HEARING IMPAIRED?NO VISION IMPAIRED?NO COGNITIVELY IMPAIRED?NO READINESS TO LEARN?YES LEARNING PREFERENCES?NO LEARNING CAPABILITIES PRESENT?YES EMOTIONAL BARRIERS?NO SPECIAL DEVICES?NO PURCHASING CONTRACTING CLERK NEEDED?NO DOMESTIC VIOLENCE DO YOU FEEL SAFE IN YOUR ENVIRONMENT?YES OCCUPATION: UNEMPLOYED. EXERCISE: DAILY 30 MINS CARDIO. MARITAL STATUS: . OTHERS AT HOME: SPOUSE, CHILDREN. NEW PATIENT PAIN DIARY TODAY'S VISIT 03/03/20 PATIENT DESCRIBES PAIN :IT COMES AND GOES, THROBBING FROM 0-10, WHAT LEVEL IS YOUR PAIN TODAY?6 PRECIPITATING FACTORS ACTIVITY ALLEVIATING FACTORS SLEEPING, MEDS IMPACT ON FUNCTION YES PAIN CLINIC PFS, CLERGY, PUBLIC HEALTH REFERRALS WAS THE PROVIDER NOTIFIED OF ANY PERTINENT INFO?YES HAS THE PATIENT BEEN EDUCATED REGARDING HIS/HER PLAN OF CARE?YES HAS THE PATIENT BEEN EDUCATED REGARDING PAIN, THE RISK FOR PAIN, THE IMPORTANCE OF EFFECTIVE PAIN MANAGEMENT, AND THE PAIN ASSESSMENT PROCESS?YES ADVANCE DIRECTIVE ADVANCE DIRECTIVE DISCUSSED WITH PATIENT:YES PT HAS NO ADVANCED DIRECTIVES, DECLINES INFORMATION AT THIS TIME. REVIEWED WITH PT 06/09/18 1120 LASREVIEWED WITH PT 08/08/18 1031 BVREVIEWED WITH PATIENT 09/03/19 1112 JSREVIEWED WITH PATIENT 11-01-19 DSREVIEWED WITH PATIENT 11/23/2019 1323 JS. HOSPITALIZATION/MAJOR DIAGNOSTIC PROCEDURE ASTHMA ATTACK, WAS INTUBATED AND AN INPATIENT X 7 DAYS 2015 REVIEW OF SYSTEMS CONSTITUTIONAL: ANY RECENT FEVER NO . CHILLS NO . WEIGHT CHANGE OF UNKNOWN REASONS NO . GASTROENTEROLOGY: NEW UNEXPLAINABLE CHANGES IN BOWEL CONTROL NO . CONSTIPATION NO . GENITOURINARY: ANY NEW CHANGE IN BLADDER CONTROL? NO . NEUROLOGY: NEW ONSET DIZZINESS OR NEUROLOGICAL CHANGES NOT MENTIONED NO . NEW NUMBNESS OR PAIN PATTERNS NOT MENTIONED AND PERTINENT TO TODAY'S VISIT NO . CARDIOLOGY: NEW CHEST PRESSURE NO . NEW CHEST PAIN NO . RESPIRATORY: UNEXPLAINABLE COUGH NO . NEW SHORTNESS OF BREATH NO . VITAL SIGNS WT 134.4 LBS, HT 62.25 IN, BMI 24.38 INDEX, BP 121/76 MM HG, HR 83 /MIN, RR 18 /MIN, TEMP 97.2 F, OXYGEN SAT % 94%, NA INITIALS AW 1324. EXAMINATION GENERAL EXAMINATION: GENERALAWAKE,ALERT ,PLEASANT . PSYCHAFFECT NORMAL . LUNGS:LUNG GLASGOW ARE CLEAR TO AUSCULTATION BILATERALLY. GOOD MOVEMENT OF AIR . HEART:S1, S2 IN A REGULAR RATE AND RHYTHM. NO SIGNIFICANT MURMURS, RUBS OR GALLOPS NOTED . ASSESSMENTS PRIMARY OSTEOARTHRITIS INVOLVING MULTIPLE JOINTS - M15.0 (PRIMARY) FIBROMYALGIA - M79.7 TREATMENT PRIMARY OSTEOARTHRITIS INVOLVING MULTIPLE JOINTS [facility] MRI LUMBAR W/O CONTRAST (CPT [id number] NOTES: MRI OF LS SPINE. RETURN TO CLINIC IN 4-6 WEEKS TO EVALUATE MRI AND DEVELOP A TREATMENT STRATEGY. PROCEDURE CODES FA211 ESTABILISHED PATIENT [facility] FACILITY CHARGE DISPOSITION & COMMUNICATION FOLLOW UP 6 WEEKS. REVIEW MRI L/S SPINE (REASON: LOW BACK PAIN) ELECTRONICALLY SIGNED BY FRANCISCO GOLDEN ON 05/09/2020 AT 08:46 AM EDT DISCLAIMER : THIS IS A VISIT SUMMARY EXTRACTED FROM THE [employer] CHART. IT IS NOT A COPY OF THE [employer] PROGRESS NOTE. VIJAY
== END ==
LOC: M PAIN 13:15
PROVIDERS: ATTEND Nurse Practitioner Family
DX: M15.0 Primary generalized (osteo)arthritis (principal); M79.7 Fibromyalgia

== ENCOUNTER → 2020-05-21 | Outpatient (CLI) | payer BC, OTHER | LOC: M RAD 09:10 | PROVIDERS: ATTEND Nurse Practitioner Family | DX: M15.0 Primary generalized (osteo)arthritis (principal); M48.061 Spinal stenosis, lumbar region without neurogenic claudication ==

== ENCOUNTER → 2020-06-24 | Outpatient (CLI) | payer BC, OTHER | LOC: M PAIN 13:02 | PROVIDERS: ATTEND Nurse Practitioner Family | DX: M47.816 Spondylosis without myelopathy or radiculopathy, lumbar region (principal) ==

== ENCOUNTER → 2020-07-04 | Outpatient (CLI) | payer BC, OTHER | LOC: M LABSMTC 10:48 | PROVIDERS: ATTEND Anesthesiology | DX: Z20.828 Contact with and (suspected) exposure to other viral communicable diseases (principal) | CPT/HCPCS: C9803; U0003 ==

== ENCOUNTER → 2020-07-09 | Outpatient (CLI) | payer BC, OTHER ==
[~2020-07-09] MED LIST changes: +BUPIVACAINE HCL 0.25% 30ML VIAL As Ordered ONE; +ISOVUE-M 300 61% 15ML VIAL As Ordered ONE; +LIDOCAINE 1% SDV 30ML VIAL As Ordered ONE
--- NOTE | 2020-07-23 10:10 | REP ---
FACET BLOCK: The images were reviewed with Dr. Matos. The portable C-ARM is provided in the OR for Dr. Heidi Cristobal for fluoroscopic guidance. Two intraoperative last image hold fluoro spot films were obtained for needle placement verification for bilateral lumbar facet injection. The films are on the PACS system and are available for review. 36 seconds of fluoroscopy time was utilized for this procedure. VIJAY
== END ==
LOC: M PAIN 10:25
PROVIDERS: ATTEND Anesthesiology
DX: M47.816 Spondylosis without myelopathy or radiculopathy, lumbar region (principal); M47.817 Spondylosis without myelopathy or radiculopathy, lumbosacral region

== ENCOUNTER → 2020-07-29 | Outpatient (CLI) | payer BC ==
[~2020-07-29] MED LIST changes: -BUPIVACAINE HCL 0.25% 30ML VIAL As Ordered ONE; -ISOVUE-M 300 61% 15ML VIAL As Ordered ONE; -LIDOCAINE 1% SDV 30ML VIAL As Ordered ONE
--- NOTE | 2020-07-31 14:56 | ECWPNPC ---
PATIENT NAME: THERESE HALL : 1970 GENDER: FEMALE VISIT DATE: 07/29/2020 DISCHARGE DATE: 07/29/20 1139 VISIT LOCKED DATE TIME: PHYSICIAN: ANNEMARIE CORADO RESOURCE: ANNEMARIE CORADO REASON FOR APPOINTMENT 1. POST PROCEDURE HISTORY OF PRESENT ILLNESS PAIN CENTER INTAKE QUESTIONS: DO YOU HAVE A HISTORY OF MRSA? :NO DO YOU TAKE A BLOOD THINNERS? :NO DO YOU HAVE ANY BLEEDING DISORDERS? :NO ANY NEW NUMBNESS OR WEAKNESS IN YOUR LEGS OR ARMS? :NO ANY PACEMAKER,DEFIBRILLATOR, OR DORSAL COLUMN STIMULATOR? :NO DO YOU HAVE ANY RASHES OR OPEN SORES? :NO ARE YOU ALLERGIC TO IV DYE? :NO ARE YOU DIABETIC? :NO ANY NEW PROBLEMS WITH YOUR MEDICATIONS? :NO HAVE YOU RECEIVED A VACCINE IN THE PAST 30 DAYS? :NO DO YOU PLAN TO RECEIVE A VACCINE IN THE NEXT 21 DAYS? :NO DO YOU NEED ANY PRESCRIPTION? :NO DO YOU TAKE ANY IMMUNOSUPPRESSIVE MEDICATIONS? :NO IS THERE A CHANCE YOU COULD BE ? :NO ARE YOU BREAST FEEDING? :NO GENERAL: HERE FOR POST PROCEDURE F/U.HAD LFBDX BILAT. ON 07/09/20.REPORTING >80% REDUCTION IN PAIN FOR APPROXIMATLEY 12 HOURS THEN PAIN GRADUALLY RETURNED TO BASELINE.RATING PAIN VAS 5/10.REVIEWED MRI AND DISCUSSED TRESTMENT PLAN. -. FALL RISK SCREENING: SCREENING :NO FALLS REPORTED IN THE LAST YEAR PAIN SCREENING: PATIENT HAS A COMPLAINT OF ACUTE OR CHRONIC PAIN :YES LOCATION OF PAIN:LOW BACK INTENSITY OF PAIN (SCALE OF 1 TO 10):5 WHAT DOES YOUR PAIN FEEL LIKE:STABBING DURATION:CONTINOUS NURSING NOTE: -. CURRENT MEDICATIONS TAKING IBUPROFEN 800 MG TABLET 1 TABLET ORALLY Q8H TAKING MULTIVITAMINS OTC TABLET 1 TAB(S) ORALLY DAILY TAKING DULOXETINE HCL 60 MG CAPSULE DELAYED RELEASE PARTICLES 1 CAPSULE ORALLY BID TAKING MONTELUKAST SODIUM 10 MG TABLET 1 TABLET ORALLY ONCE A DAY TAKING TRAZODONE HCL 100 MG TABLET 1 TABLET AT BEDTIME ORALLY ONCE A DAY TAKING CYCLOBENZAPRINE HCL 10 MG TABLET 1 TABLET NEEDED ORALLY THREE TIMES A DAY TAKING BREO ELLIPTA 200-25 MCG/INH AEROSOL POWDER BREATH ACTIVATED 1 PUFF INHALATION ONCE A DAY TAKING BENADRYL ALLERGY 25 MG TABLET 1 TABLET NEEDED ORALLY EVERY 8 HRS TAKING FISH OIL 1200 MG CAPSULE 1 CAPSULE ORALLY ONCE A DAY TAKING MARYAN ALLERGY 180 MG TABLET 1 TABLET NEEDED ORALLY ONCE A DAY NOT-TAKING LYRICA 150 MG CAPSULE 1 CAPSULE ORALLY BID NOT-TAKING MOBIC 7.5 MG TABLET 1 TABLET ORALLY BID NOT-TAKING TRAMADOL HCL 50 MG TABLET 1 TABLET NEEDED ORALLY EVERY 6 HRS PRN MDD4 #60TAB SHOULD LAST 30 DAYS, NOTES: TAKES VERY RARELY NOT-TAKING VENTOLIN HFA 108 (90 BASE) MCG/ACT AEROSOL SOLUTION 2 PUFFS NEEDED INHALATION EVERY 6 HRS, NOTES: NONE RECENTLY MEDICATION LIST REVIEWED AND RECONCILED WITH THE PATIENT PAST MEDICAL HISTORY URINARY FREQUENCY/STRESS INCONTINENCE ASTHMA FIBROMYALGIA CHRONIC PAIN , NECK PAIN , DJD DEPRESSION PALPITATIONS ARTHRITIS ALLERGIES ENVIRONMENTAL: POST NASAL DRIP - ALLERGY SURGICAL HISTORY COLONOSCOPY 2007 REMOVAL BREAST CYSTS THROUGH NEEDLE ASPIRATION 2009 HYSTERECTOMY 2011 FAMILY HISTORY FATHER: 63 YRS, LUNG CANCER, DIAGNOSED WITH OTHER MALIGNANT NEOPLASM OF UNSPECIFIED SITE MOTHER: ALIVE 79 YRS SIBLINGS: SISTER- HAS HAD M.I. 2 SISTER(S) - HEALTHY. 2 SON(S) - HEALTHY. DAD LR/T LUNG CANCERMOM, BOTH SISTERS DIAGNOSED WITH ARTHRITIS. SOCIAL HISTORY GENERAL: TOBACCO USE ARE YOU A:CURRENT SMOKER ARE YOU INTERESTED IN QUITTING?READY TO QUIT ACTIVELY TRYING TO QUIT AT THIS TIME COUNSELED THE PATIENT ON TOBACCO USE, CESSATION [id number]/11/2020 HOW MANY CIGARETTES A DAY DO YOU SMOKE?5 OR LESS HOW SOON AFTER YOU WAKE UP DO YOU SMOKE YOUR FIRST CIGARETTE?AFTER 60 MIN HOW OFTEN DO YOU SMOKE CIGARETTES?EVERY DAY PATIENT COUNSELED ON THE DANGERS OF TOBACCO USE AND URGED TO QUIT:07/29/2020 LATEX QUESTIONNAIRE LATEX ALLERGY : HAVE YOU EVER DEVELOPED ANY TYPE OF REACTION AFTER HANDLING LATEX PRODUCTS SUCH RUBBER GLOVES, CONDOMS, DIAPHRAGMS, BALLOONS, SOCKS, OR UNDERWEAR?NO LATEX ALLERGY : HAVE YOU EVER DEVELOPED ANY TYPE OF REACTION DURING OR AFTER DENTAL APPOINTMENT, VAGINAL/RECTAL EXAMINATION, SURGICAL PROCEDURE, OR ANY OTHER EXPOSURE?NO DATE ASKED : 11/01/2019 LATEX RISK : HAVE YOU EVER HAD ANY DIFFICULTY BREATHING OR HIVES AFTER EATING OR HANDLING ANY FRUITS, OR VEGETABLES; SUCH KIWI, BANANAS, STONE FRUITS, OR CHESTNUTSNO LATEX RISK : DO YOU HAVE A PREVIOUS PERSONAL HISTORY OF MORE THAN NINE SURGERIES, SPINA BIFIDA, OR REPEATED CATHERIZATIONS? NO LATEX RISK : ARE YOU FREQUENTLY EXPOSED TO LATEX PRODUCTS IN YOUR OCCUPATION?NO ALCOHOL SCREENING DID YOU HAVE A DRINK CONTAINING ALCOHOL IN THE PAST YEAR?YES HOW OFTEN DID YOU HAVE SIX OR MORE DRINKS ON ONE OCCASION IN THE PAST YEAR?NEVER (0 POINTS) HOW MANY DRINKS DID YOU HAVE ON A TYPICAL DAY WHEN YOU WERE DRINKING IN THE PAST YEAR?1 OR 2 (0 POINTS) HOW OFTEN DID YOU HAVE A DRINK CONTAINING ALCOHOL IN THE PAST YEAR?MONTHLY OR LESS (1 POINT) POINTS1 INTERPRETATIONNEGATIVE RECREATIONAL DRUG USE DRUG USE?NO CAFFEINE CAFFEINE USE?YES HOW OFTEN AND HOW MUCH? 3 CUPS DAILY SEXUAL HX HAD SEX IN THE LAST 12 MONTHS (VAGINAL, ORAL, OR ANAL)?: YES, WITH: MEN ONLY, USE PROTECTION?: NO, HAVE YOU EVER HAD AN STD?: NO, LMP:: 08/20/10. LANGUAGE LANGUAGES SPOKEN:SENEGALESE LEARNING BARRIERS / SPECIAL NEEDS BARRIERS TO LEARNING?NO HEARING IMPAIRED?NO VISION IMPAIRED?NO COGNITIVELY IMPAIRED?NO READINESS TO LEARN?YES LEARNING PREFERENCES?NO LEARNING CAPABILITIES PRESENT?YES EMOTIONAL BARRIERS?NO SPECIAL DEVICES?NO BRICK WASHER NEEDED?NO DOMESTIC VIOLENCE DO YOU FEEL SAFE IN YOUR ENVIRONMENT?YES OCCUPATION: UNEMPLOYED. EXERCISE: DAILY 30 MINS CARDIO. MARITAL STATUS: . OTHERS AT HOME: SPOUSE, CHILDREN. NEW PATIENT PAIN DIARY TODAY'S VISIT 03/03/20 PATIENT DESCRIBES PAIN :IT COMES AND GOES, THROBBING FROM 0-10, WHAT LEVEL IS YOUR PAIN TODAY?6 PRECIPITATING FACTORS ACTIVITY ALLEVIATING FACTORS SLEEPING, MEDS IMPACT ON FUNCTION YES PAIN CLINIC PFS, CLERGY, PUBLIC HEALTH REFERRALS WAS THE PROVIDER NOTIFIED OF ANY PERTINENT INFO?YES HAS THE PATIENT BEEN EDUCATED REGARDING HIS/HER PLAN OF CARE?YES HAS THE PATIENT BEEN EDUCATED REGARDING PAIN, THE RISK FOR PAIN, THE IMPORTANCE OF EFFECTIVE PAIN MANAGEMENT, AND THE PAIN ASSESSMENT PROCESS?YES ADVANCE DIRECTIVE ADVANCE DIRECTIVE DISCUSSED WITH PATIENT:YES PT HAS NO ADVANCED DIRECTIVES, DECLINES INFORMATION AT THIS TIME. REVIEWED WITH PT 06/09/18 1120 LASREVIEWED WITH PT 08/08/18 1031 BVREVIEWED WITH PATIENT 09/03/19 1112 JSREVIEWED WITH PATIENT 11-01-19 DSREVIEWED WITH PATIENT 11/23/2019 1323 JS. HOSPITALIZATION/MAJOR DIAGNOSTIC PROCEDURE ASTHMA ATTACK, WAS INTUBATED AND AN INPATIENT X 7 DAYS 2016 REVIEW OF SYSTEMS CONSTITUTIONAL: ANY RECENT FEVER NO . CHILLS NO . WEIGHT CHANGE OF UNKNOWN REASONS NO . GASTROENTEROLOGY: NEW UNEXPLAINABLE CHANGES IN BOWEL CONTROL NO . CONSTIPATION NO . GENITOURINARY: ANY NEW CHANGE IN BLADDER CONTROL? NO . NEUROLOGY: NEW ONSET DIZZINESS OR NEUROLOGICAL CHANGES NOT MENTIONED NO . NEW NUMBNESS OR PAIN PATTERNS NOT MENTIONED AND PERTINENT TO TODAY'S VISIT NO . CARDIOLOGY: NEW CHEST PRESSURE NO . NEW CHEST PAIN NO . RESPIRATORY: UNEXPLAINABLE COUGH NO . NEW SHORTNESS OF BREATH NO . VITAL SIGNS WT 137.0 LBS, HT 62.25 IN, BMI 24.85 INDEX, BP 120/73 MM HG, HR 76 /MIN, RR 18 /MIN, TEMP 97.0 F, OXYGEN SAT % 97%, NA INITIALS AW 1103. EXAMINATION GENERAL EXAMINATION: GENERAL AWAKE,ALERT ,PLEAASANT . PSYCH AFFECT NORMAL . LUNGS: LUNG GLASGOW ARE CLEAR TO AUSCULTATION BILATERALLY. GOOD MOVEMENT OF AIR . HEART: S1, S2 IN A REGULAR RATE AND RHYTHM. NO SIGNIFICANT MURMURS, RUBS OR GALLOPS NOTED . LUMBAR: PALPATION: + FOR PAIN OVER L/S SPINE. + FOR PAIN OVER L/S PARASPINALS .SPECIFIC POINT TENDERNESS OVER RIGHT L4/5-L5/S1 LUMBAR FACETS WITH FACET LOADING. NEUROLOGIC EXAM: NORMAL SENSATION LIGHT TOUCH BILAT. LOWER EXTREMITIES . ASSESSMENTS SPONDYLOSIS OF LUMBOSACRAL JOINT - M47.817 (PRIMARY) TREATMENT SPONDYLOSIS OF LUMBOSACRAL JOINT NOTES: RIGHT L4/5-L5/S1 LFB DX #2. PROCEDURE CODES FA211 ESTABILISHED PATIENT [facility] CHARGE DISPOSITION & COMMUNICATION FOLLOW UP POST PROC (REASON: RIGHT L4/5-L5/S1 LFB DX #2) ELECTRONICALLY SIGNED BY FRANCISCO GOLDEN ON 07/31/2020 AT 02:50 PM EDT DISCLAIMER : THIS IS A VISIT SUMMARY EXTRACTED FROM THE [employer] CHART. IT IS NOT A COPY OF THE [employer] PROGRESS NOTE. MTDD
== END ==
LOC: M PAIN 11:00
PROVIDERS: ATTEND Nurse Practitioner Family
DX: M47.817 Spondylosis without myelopathy or radiculopathy, lumbosacral region (principal); J45.909 Unspecified asthma, uncomplicated; M79.7 Fibromyalgia; Z86.59 Personal history of other mental and behavioral disorders; F17.210 Nicotine dependence, cigarettes, uncomplicated; Z79.51 Long term (current) use of inhaled steroids; Z79.899 Other long term (current) drug therapy

== ENCOUNTER → 2020-08-06 | Outpatient (CLI) | payer BC | LOC: M LABSMTC 11:16 | PROVIDERS: ATTEND Anesthesiology | DX: Z11.59 Encounter for screening for other viral diseases (principal) ==

== ENCOUNTER → 2021-01-26 | Outpatient (CLI) | payer BC ==
[~2021-01-26] MED LIST changes: +MONT10TA10 PO; -MONT10TA4 PO
--- NOTE | 2021-01-26 15:40 | REPMRS ---
Patient History The patient states she had a clinical breast exam in 11/2020 Family history of unknown cancer at age 50 or over in father, unknown cancer at age 50 or over in maternal grandfather. Benign stereotatic breast biopsy of both breasts, July 21, 2009. 3D TOMOSYNTHESIS WAS PERFORMED. The Tyree Landa lifetime risk for breast cancer is 6.9%. Volpara breast density b. Digital Woman Screen Mammo: January 26, 2021 - Exam #: [id number] Bilateral CC and MLO view(s) were taken. Technologist: Tamara Barlow, Technologist Prior study comparison: May 11, 2016, digital woman screen mammo performed at [facility]. August 09, 2012, left breast digital mammo diagnostic unilateral, performed at [facility]. FINDINGS: The breast tissue is heterogeneously dense. This may lower the sensitivity of mammography. There has been no change in the appearance of the mammogram from the prior studies. There is a moderate amount of residual fibroglandular tissue which is fairly symmetric. There is no interval development of dominant mass, areas of architectural distortion, or clustered microcalcification typical of malignancy. Assessment: BI-RADS/ACR category 1 mammogram. Negative Mammogram. Recommendation Routine screening mammogram in 1 year (for women over age 40). This mammogram was interpreted with the aid of an FDA-approved computer-aided dectection system. Electronically Signed By: Costa Gallegos MD 01/26/21 [id number]
--- NOTE | 2021-01-26 18:12 | DEXAMM ---
INDICATION: Z13.820 SCR FOR OSTEOPOROSIS. COMPARISON: None. TECHNIQUE: Bone density was measured using dual-energy x-ray absorptiometry (DEXA). FINDINGS: AP SPINE L1-L4 BMD 1.002 g/cm2 Young Adult T-Score -1.6 Age Matched Z-Score -1.0. LT FEMUR, TOTAL BMD 0.957 g/cm2 Young Adult T-Score -0.4 Age Matched Z-Score 0.1. LT NECK BMD 0.911 g/cm2 Young Adult T-Score -0.9 Age Matched Z-Score 0.0. RT FEMUR, TOTAL BMD 0.888 g/cm2 Young Adult T-Score -0.9 Age Matched Z-Score -0.4. RT NECK BMD 0.836 g/cm2 Young Adult T-Score -1.5 Age Matched Z-Score -0.6. IMPRESSION: There is low bone density of the spine. There is normal bone density of the left hip. There is low bone density of the right hip. FOLLOW-UP: Recommendation for the next bone density exam: 2 years. <Electronically signed by Costa Gallegos > 01/26/21 5634
== END ==
LOC: M WHC 14:32
PROVIDERS: ATTEND Obstetrics & Gynecology
DX: Z12.31 Encounter for screening mammogram for malignant neoplasm of breast (principal); Z13.820 Encounter for screening for osteoporosis; R92.2 Inconclusive mammogram; M85.89 Other specified disorders of bone density and structure, multiple sites

== ENCOUNTER → 2021-04-14 | Outpatient (CLI) | payer BC ==
--- NOTE | 2021-04-16 00:43 | ECWPNPC ---
PATIENT NAME: THERESE HALL : 1970 GENDER: FEMALE VISIT DATE: 04/14/2021 DISCHARGE DATE: 04/14/21 1141 VISIT LOCKED DATE TIME: PHYSICIAN: ANNEMARIE CORADO RESOURCE: ANNEMARIE CORADO REASON FOR APPOINTMENT 1. WANTS TRIGGER POINT INJECTIONS HISTORY OF PRESENT ILLNESS DEPRESSION SCREENING: PHQ-9 LITTLE INTEREST OR PLEASURE IN DOING THINGSSEVERAL DAYS FEELING DOWN, DEPRESSED, OR HOPELESSSEVERAL DAYS TROUBLE FALLING OR STAYING ASLEEP, OR SLEEPING TOO MUCHNEARLY EVERY DAY FEELING TIRED OR HAVING LITTLE ENERGYNEARLY EVERY DAY POOR APPETITE OR OVEREATING NEARLY EVERY DAY FEELING BAD ABOUT YOURSELF-OR THAT YOU ARE A FAILURE OR HAVE LET YOURSELF OR YOUR FAMILY DOWN NOT AT ALL TROUBLE CONCENTRATING ON THINGS, SUCH READING THE NEWSPAPER OR WATCHING TELEVISION SEVERAL DAYS MOVING OR SPEAKING SO SLOWLY THAT OTHER PEOPLE COULD HAVE NOTICED. OR THE OPPOSITE- BEING SO FIDGETY OR RESTLESS THAT YOU HAVE BEEN MOVING AROUND A LOT MORE THAN USUALNEARLY EVERY DAY THOUGHTS THAT YOU WOULD BE BETTER OFF , OR OF HURTING YOURSELF IN SOME WAY?NOT AT ALL TOTAL SCORE:15 INTERPRETATIONMODERATELY SEVERE DEPRESSION PHQ-2 (2015 EDITION) LITTLE INTEREST OR PLEASURE IN DOING THINGS?SEVERAL DAYS FEELING DOWN, DEPRESSED, OR HOPELESS?SEVERAL DAYS TOTAL SCORE2 GENERAL: HERE FOR FOLLOW-UP OF NECK AND LOW BACK PAIN. LAST VISIT WAS IN JULY. WE HAD PLANNED ON DOING LUMBAR FACET BLOCK DIAGNOSTIC NUMBER TWO BUT PATIENT HAD CANCELED DUE TO ANXIETY WELL BEING QUARANTINED FOR COVID 19. CHIEF AREA OF PAIN IS HER NECK. SHE WOULD LIKE TO HOLD OFF ON LOWER BACK TREATMENT AND DO TRIGGER POINT INJECTIONS FOR NECK PAIN THAT HAVE BEEN SO HELPFUL IN THE PAST. -. FALL RISK SCREENING: SCREENING : NO FALLS REPORTED IN THE LAST YEAR. PAIN SCREENING: PATIENT HAS A COMPLAINT OF ACUTE OR CHRONIC PAIN :YES LOCATION OF PAIN:NECK, BOTH SHOULDERS INTENSITY OF PAIN (SCALE OF 1 TO 10):6 WHAT DOES YOUR PAIN FEEL LIKE:ACHING, CONTINOUS, TENDER DURATION:CONTINOUS, CONSTANT, ALL DAY PAIN IS INCREASED BY:ACTIVITIES PAIN IS DECREASED BY:OTHERS HEAT NURSING NOTE: -. PAIN CENTER INTAKE QUESTIONS: DO YOU HAVE A HISTORY OF MRSA? :NO DO YOU TAKE A BLOOD THINNERS? :NO DO YOU HAVE ANY BLEEDING DISORDERS? :NO ANY NEW NUMBNESS OR WEAKNESS IN YOUR LEGS OR ARMS? :NO ANY PACEMAKER,DEFIBRILLATOR, OR DORSAL COLUMN STIMULATOR? :NO DO YOU HAVE ANY RASHES OR OPEN SORES? :NO ARE YOU ALLERGIC TO IV DYE? :NO ARE YOU DIABETIC? :NO ANY NEW PROBLEMS WITH YOUR MEDICATIONS? :NO HAVE YOU RECEIVED A VACCINE IN THE PAST 30 DAYS? :YES 1ST COVID 02/18/2021 2ND COVID 02/21/2021 DO YOU PLAN TO RECEIVE A VACCINE IN THE NEXT 21 DAYS? :NO DO YOU NEED ANY PRESCRIPTION? :NO DO YOU TAKE ANY IMMUNOSUPPRESSIVE MEDICATIONS? :NO IS THERE A CHANCE YOU COULD BE ? :NO ARE YOU BREAST FEEDING? :NO CURRENT MEDICATIONS TAKING IBUPROFEN 800 MG TABLET 1 TABLET ORALLY Q8H TAKING MULTIVITAMINS OTC TABLET 1 TAB(S) ORALLY DAILY TAKING DULOXETINE HCL 60 MG CAPSULE DELAYED RELEASE PARTICLES 1 CAPSULE ORALLY BID TAKING MONTELUKAST SODIUM 10 MG TABLET 1 TABLET ORALLY ONCE A DAY TAKING TRAZODONE HCL 100 MG TABLET 1 TABLET AT BEDTIME ORALLY ONCE A DAY TAKING CYCLOBENZAPRINE HCL 10 MG TABLET 1 TABLET NEEDED ORALLY THREE TIMES A DAY TAKING BREO ELLIPTA 200-25 MCG/INH AEROSOL POWDER BREATH ACTIVATED 1 PUFF INHALATION ONCE A DAY TAKING BENADRYL ALLERGY 25 MG TABLET 1 TABLET NEEDED ORALLY EVERY 8 HRS TAKING FISH OIL 1200 MG CAPSULE 1 CAPSULE ORALLY ONCE A DAY TAKING MARYAN ALLERGY 180 MG TABLET 1 TABLET NEEDED ORALLY ONCE A DAY TAKING OXYBUTYNIN CHLORIDE 5 MG TABLET 1 TABLET ORALLY ONCE A DAY NOT-TAKING LYRICA 150 MG CAPSULE 1 CAPSULE ORALLY BID NOT-TAKING MOBIC 7.5 MG TABLET 1 TABLET ORALLY BID NOT-TAKING TRAMADOL HCL 50 MG TABLET 1 TABLET NEEDED ORALLY EVERY 6 HRS PRN MDD4 #60TAB SHOULD LAST 30 DAYS, NOTES: TAKES VERY RARELY NOT-TAKING VENTOLIN HFA 108 (90 BASE) MCG/ACT AEROSOL SOLUTION 2 PUFFS NEEDED INHALATION EVERY 6 HRS, NOTES: NONE RECENTLY MEDICATION LIST REVIEWED AND RECONCILED WITH THE PATIENT PAST MEDICAL HISTORY URINARY FREQUENCY/STRESS INCONTINENCE ASTHMA FIBROMYALGIA CHRONIC PAIN , NECK PAIN , DJD DEPRESSION PALPITATIONS ARTHRITIS ALLERGIES ENVIRONMENTAL: POST NASAL DRIP - ALLERGY SOCIAL HISTORY GENERAL: TOBACCO USE ARE YOU A:CURRENT SMOKER ARE YOU INTERESTED IN QUITTING?READY TO QUIT ACTIVELY TRYING TO QUIT AT THIS TIME COUNSELED THE PATIENT ON TOBACCO USE, CESSATION DIANTWUU25/22/2021 HOW MANY CIGARETTES A DAY DO YOU SMOKE?5 OR LESS HOW SOON AFTER YOU WAKE UP DO YOU SMOKE YOUR FIRST CIGARETTE?AFTER 60 MIN HOW OFTEN DO YOU SMOKE CIGARETTES?EVERY DAY PATIENT COUNSELED ON THE DANGERS OF TOBACCO USE AND URGED TO QUIT:08/08/2020 LATEX QUESTIONNAIRE LATEX ALLERGY : HAVE YOU EVER DEVELOPED ANY TYPE OF REACTION AFTER HANDLING LATEX PRODUCTS SUCH RUBBER GLOVES, CONDOMS, DIAPHRAGMS, BALLOONS, SOCKS, OR UNDERWEAR?NO LATEX ALLERGY : HAVE YOU EVER DEVELOPED ANY TYPE OF REACTION DURING OR AFTER DENTAL APPOINTMENT, VAGINAL/RECTAL EXAMINATION, SURGICAL PROCEDURE, OR ANY OTHER EXPOSURE?NO LATEX RISK : HAVE YOU EVER HAD ANY DIFFICULTY BREATHING OR HIVES AFTER EATING OR HANDLING ANY FRUITS, OR VEGETABLES; SUCH KIWI, BANANAS, STONE FRUITS, OR CHESTNUTSNO LATEX RISK : DO YOU HAVE A PREVIOUS PERSONAL HISTORY OF MORE THAN NINE SURGERIES, SPINA BIFIDA, OR REPEATED CATHERIZATIONS? NO LATEX RISK : ARE YOU FREQUENTLY EXPOSED TO LATEX PRODUCTS IN YOUR OCCUPATION?NO DATE ASKED : 04/14/2021 ALCOHOL USE: YES, ONCE IN A WHILE. ALCOHOL SCREENING DID YOU HAVE A DRINK CONTAINING ALCOHOL IN THE PAST YEAR?YES HOW OFTEN DID YOU HAVE SIX OR MORE DRINKS ON ONE OCCASION IN THE PAST YEAR?NEVER (0 POINTS) HOW MANY DRINKS DID YOU HAVE ON A TYPICAL DAY WHEN YOU WERE DRINKING IN THE PAST YEAR?1 OR 2 (0 POINTS) HOW OFTEN DID YOU HAVE A DRINK CONTAINING ALCOHOL IN THE PAST YEAR?MONTHLY OR LESS (1 POINT) POINTS1 INTERPRETATIONNEGATIVE RECREATIONAL DRUG USE DRUG USE?YES [place] CAFFEINE CAFFEINE USE?YES HOW OFTEN AND HOW MUCH? 3 CUPS DAILY SEXUAL HX HAD SEX IN THE LAST 12 MONTHS (VAGINAL, ORAL, OR ANAL)?: YES, WITH: MEN ONLY, USE PROTECTION?: NO, HAVE YOU EVER HAD AN STD?: NO, LMP:: 08/20/10. LANGUAGE LANGUAGES SPOKEN:CROATIAN LEARNING BARRIERS / SPECIAL NEEDS CHANGE FROM LAST VISIT?NO BARRIERS TO LEARNING?NO HEARING IMPAIRED?NO VISION IMPAIRED?YES :CORRECTIVE LENSES COGNITIVELY IMPAIRED?NO READINESS TO LEARN?YES LEARNING PREFERENCES?NO LEARNING CAPABILITIES PRESENT?YES EMOTIONAL BARRIERS?NO SPECIAL DEVICES?NO DOOR TO DOOR LEAD GENERATION NEEDED?NO DOMESTIC VIOLENCE DO YOU FEEL SAFE IN YOUR ENVIRONMENT?YES OCCUPATION: UNEMPLOYED. DIET: REGULAR. EXERCISE: DAILY 30 MINS CARDIO. MARITAL STATUS: . OTHERS AT HOME: SPOUSE, CHILDREN. TODAY'S VISIT 03/03/20, PATIENT DESCRIBES PAIN : IT COMES AND GOES, THROBBING, FROM 0-10, WHAT LEVEL IS YOUR PAIN TODAY? 6, PRECIPITATING FACTORS ACTIVITY, ALLEVIATING FACTORS SLEEPING, MEDS, IMPACT ON FUNCTION YES. - WAS THE PROVIDER NOTIFIED OF ANY PERTINENT INFO?YES HAS THE PATIENT BEEN EDUCATED REGARDING HIS/HER PLAN OF CARE?YES HAS THE PATIENT BEEN EDUCATED REGARDING PAIN, THE RISK FOR PAIN, THE IMPORTANCE OF EFFECTIVE PAIN MANAGEMENT, AND THE PAIN ASSESSMENT PROCESS?YES ADVANCE DIRECTIVE ADVANCE DIRECTIVE DISCUSSED WITH PATIENT:YES PT HAS NO ADVANCED DIRECTIVES, DECLINES INFORMATION AT THIS TIME. 08/08/20 MT. REVIEWED WITH PT 06/09/18 1120 LASREVIEWED WITH PT 08/08/18 1031 BVREVIEWED WITH PATIENT 09/03/19 1112 JSREVIEWED WITH PATIENT 11-01-19 DSREVIEWED WITH PATIENT 11/23/2019 1323 JS. REVIEW OF SYSTEMS CONSTITUTIONAL: ANY RECENT FEVER NO . CHILLS NO . WEIGHT CHANGE OF UNKNOWN REASONS NO . GASTROENTEROLOGY: NEW UNEXPLAINABLE CHANGES IN BOWEL CONTROL NO . CONSTIPATION NO . GENITOURINARY: ANY NEW CHANGE IN BLADDER CONTROL? NO . NEUROLOGY: NEW ONSET DIZZINESS OR NEUROLOGICAL CHANGES NOT MENTIONED NO . NEW NUMBNESS OR PAIN PATTERNS NOT MENTIONED AND PERTINENT TO TODAY'S VISIT NO . CARDIOLOGY: NEW CHEST PRESSURE NO . PATIENT DENIES NO . RESPIRATORY: UNEXPLAINABLE COUGH NO . NEW SHORTNESS OF BREATH NO . VITAL SIGNS WT 136.8 LBS, HT 62.25 IN, BMI 24.82 INDEX, BP 121/59 MM HG, HR 69 /MIN, RR 18 /MIN, TEMP 97.2 F, OXYGEN SAT % 95%, SAFE IN ENV? (Y/N) YES, NA INITIALS AW 1057T.JUAN RAMON ARMENDARIZ. EXAMINATION GENERAL EXAMINATION: GENERALNO ACUTE DISTRESS, WELL NOURISHED AND HYDRATED. PSYCHAPPROPRIATE MOOD AND AFFECT . LUNGS:CLEAR TO AUSCULTATION BILATERALLY, NO WHEEZES, RHONCHI, RALES. HEART:NO MURMURS, REGULAR RATE AND RHYTHM. MUSCULOSKELETAL:TRIGGER POINTS NOTED OVER BILATERAL NECK , BILATERAL SHOULDER AND BILATERAL THORACIC REGION. PAIN IS AGGRAVATED IN THIS REGION WITH RANGE OF JOINT MOTION OF THE NECK OR ARMS . ASSESSMENTS MYALGIA, OTHER SITE - M79.18 (PRIMARY) TREATMENT MYALGIA, OTHER SITE MEDICATION: OXYCODONE HCL TAB 10MG ORALLY (ORDERED FOR 04/28/2021) MEDICATION: VALIUM TAB 10MG ORALLY (DIAZEPAM) (ORDERED FOR 04/28/2021) NOTES: TRIGGER POINT INJECTIONS BILATERAL NECK,BILATERAL SHOULDERS,BILATERAL THORACIC PRINTED AND REVIEWED PRE PROCEDURE INFORMATION, PATIENT VERBALIZED UNDERSTANDING KARELY ARMENDARIZ. PROCEDURE CODES FA211 ESTABILISHED PATIENT [facility] CHARGE DISPOSITION & COMMUNICATION FOLLOW UP POST (REASON: TRIGGER POINT INJECTIONS BILATERAL NECK,BILATERAL SHOULDERS,BILATERAL THORACIC) ELECTRONICALLY SIGNED BY FRANCISCO GOLDEN ON 04/15/2021 AT 01:01 PM EDT DISCLAIMER : THIS IS A VISIT SUMMARY EXTRACTED FROM THE [employer] CHART. IT IS NOT A COPY OF THE [employer] PROGRESS NOTE. VIJAY
== END ==
LOC: M PAIN 11:00
PROVIDERS: ATTEND Nurse Practitioner Family
DX: M79.18 Myalgia, other site (principal); J45.909 Unspecified asthma, uncomplicated; F17.210 Nicotine dependence, cigarettes, uncomplicated; Z86.59 Personal history of other mental and behavioral disorders; Z79.51 Long term (current) use of inhaled steroids; Z79.899 Other long term (current) drug therapy

== ENCOUNTER → 2021-04-29 | Outpatient (CLI) | payer BC | LOC: M LABSMTC 11:26 | PROVIDERS: ATTEND Anesthesiology | DX: Z01.812 Encounter for preprocedural laboratory examination (principal); Z11.52 Encounter for screening for COVID-19 ==

== ENCOUNTER → 2021-05-04 | Outpatient (CLI) | payer BC ==
[~2021-05-04] MED LIST changes: +BUPIVACAINE HCL 0.25% 10ML VIAL As Ordered ONE; +BUPIVACAINE HCL 0.25% 30ML VIAL As Ordered ONE; +TRIAMCINOLONE ACETONIDE SUSP 40 MG/ML VIAL (J3301) As Ordered ONE; +diazePAM 5MG TABLET As Ordered ONE; +oxyCODONE 5MG TAB As Ordered ONE
--- NOTE | 2021-05-08 02:14 | ECWPNPC ---
PATIENT NAME: THERESE HALL : 1970 GENDER: FEMALE VISIT DATE: 05/04/2021 DISCHARGE DATE: 05/04/21 1004 VISIT LOCKED DATE TIME: PHYSICIAN: CARLOTTA SIMMONS MD RESOURCE: CARLOTTA SIMMONS MD REASON FOR APPOINTMENT 1. TRIGGER POINT INJECTIONS BILATERAL NECK,BILATERAL SHOULDERS,BILATERAL THORACIC HISTORY OF PRESENT ILLNESS GENERAL: -. FALL RISK SCREENING: SCREENING : NO FALLS REPORTED IN THE LAST YEAR. PAIN SCREENING: PATIENT HAS A COMPLAINT OF ACUTE OR CHRONIC PAIN :YES LOCATION OF PAIN:NECK, BOTH SHOULDERS INTENSITY OF PAIN (SCALE OF 1 TO 10):9 WHAT DOES YOUR PAIN FEEL LIKE:ACHING, CONTINOUS DURATION:CONSTANT, AWAKENS FROM SLEEP PAIN IS INCREASED BY:ACTIVITIES, PROLONGED STANDING PAIN IS DECREASED BY:USE OF PAIN MEDICATIONS PLAN/GOALS/TREATMENT/INTERVENTION/FOLLOW UP:SEE PLAN NURSING NOTE: -. PAIN CENTER INTAKE QUESTIONS: DO YOU HAVE A HISTORY OF MRSA? :NO DO YOU TAKE A BLOOD THINNERS? :NO DO YOU HAVE ANY BLEEDING DISORDERS? :NO ANY NEW NUMBNESS OR WEAKNESS IN YOUR LEGS OR ARMS? :NO ANY PACEMAKER,DEFIBRILLATOR, OR DORSAL COLUMN STIMULATOR? :NO DO YOU HAVE ANY RASHES OR OPEN SORES? :NO ARE YOU ALLERGIC TO IV DYE? :NO ARE YOU DIABETIC? :NO ANY NEW PROBLEMS WITH YOUR MEDICATIONS? :NO HAVE YOU RECEIVED A VACCINE IN THE PAST 30 DAYS? :NO DO YOU PLAN TO RECEIVE A VACCINE IN THE NEXT 21 DAYS? :NO DO YOU TAKE ANY IMMUNOSUPPRESSIVE MEDICATIONS? :NO ANY HISTORY OF SEIZURES? :NO ANY HISTORY OF CARDIAC ISSUES OR EVENTS? :NO DO YOU HAVE ANY KIDNEY OR LIVER DISEASE? :NO DO YOU HAVE SLEEP APNEA? :NO ANY RECENT HEAD INJURY? :NO DO YOU HAVE ANY NEW INFECTIONS? :NO IS THERE A CHANCE YOU COULD BE ? :NO ARE YOU BREAST FEEDING? :NO WHEN DID YOU LAST EAT? : 05/03 1800 WHEN DID YOU LAST DRINK? : 05/04 0600 WHAT DID YOU LAST DRINK? : WATER NAME OF PERSON DRIVING YOU HOME? : (BILL) DO YOU HAVE ANY OTHER QUESTIONS OR CONCERNS? : NO CURRENT MEDICATIONS TAKING IBUPROFEN 800 MG TABLET 1 TABLET ORALLY Q8H TAKING MULTIVITAMINS OTC TABLET 1 TAB(S) ORALLY DAILY TAKING DULOXETINE HCL 60 MG CAPSULE DELAYED RELEASE PARTICLES 1 CAPSULE ORALLY BID, NOTES: 05/03 2200 TAKING MONTELUKAST SODIUM 10 MG TABLET 1 TABLET ORALLY ONCE A DAY TAKING TRAZODONE HCL 100 MG TABLET 1 TABLET AT BEDTIME ORALLY ONCE A DAY, NOTES: 05/03 2200 TAKING CYCLOBENZAPRINE HCL 10 MG TABLET 1 TABLET NEEDED ORALLY THREE TIMES A DAY, NOTES: NOT RECENTLY TAKING BREO ELLIPTA 200-25 MCG/INH AEROSOL POWDER BREATH ACTIVATED 1 PUFF INHALATION ONCE A DAY, NOTES: 05/04 0700 TAKING BENADRYL ALLERGY 25 MG TABLET 1 TABLET NEEDED ORALLY EVERY 8 HRS TAKING FISH OIL 1200 MG CAPSULE 1 CAPSULE ORALLY ONCE A DAY TAKING MARYAN ALLERGY 180 MG TABLET 1 TABLET NEEDED ORALLY ONCE A DAY TAKING OXYBUTYNIN CHLORIDE 5 MG TABLET 1 TABLET ORALLY ONCE A DAY NOT-TAKING LYRICA 150 MG CAPSULE 1 CAPSULE ORALLY BID NOT-TAKING MOBIC 7.5 MG TABLET 1 TABLET ORALLY BID NOT-TAKING TRAMADOL HCL 50 MG TABLET 1 TABLET NEEDED ORALLY EVERY 6 HRS PRN MDD4 #60TAB SHOULD LAST 30 DAYS, NOTES: TAKES VERY RARELY NOT-TAKING VENTOLIN HFA 108 (90 BASE) MCG/ACT AEROSOL SOLUTION 2 PUFFS NEEDED INHALATION EVERY 6 HRS, NOTES: NONE RECENTLY MEDICATION LIST REVIEWED AND RECONCILED WITH THE PATIENT PAST MEDICAL HISTORY URINARY FREQUENCY/STRESS INCONTINENCE ASTHMA FIBROMYALGIA CHRONIC PAIN , NECK PAIN , DJD DEPRESSION PALPITATIONS ARTHRITIS ALLERGIES ENVIRONMENTAL: POST NASAL DRIP - ALLERGY SOCIAL HISTORY GENERAL: TOBACCO USE ARE YOU A:CURRENT SMOKER ARE YOU INTERESTED IN QUITTING?READY TO QUIT ACTIVELY TRYING TO QUIT AT THIS TIME COUNSELED THE PATIENT ON TOBACCO USE, CESSATION [id number]/09/2021 HOW MANY CIGARETTES A DAY DO YOU SMOKE?5 OR LESS HOW SOON AFTER YOU WAKE UP DO YOU SMOKE YOUR FIRST CIGARETTE?AFTER 60 MIN HOW OFTEN DO YOU SMOKE CIGARETTES?EVERY DAY PATIENT COUNSELED ON THE DANGERS OF TOBACCO USE AND URGED TO QUIT:08/08/2020 LATEX QUESTIONNAIRE LATEX ALLERGY : HAVE YOU EVER DEVELOPED ANY TYPE OF REACTION AFTER HANDLING LATEX PRODUCTS SUCH RUBBER GLOVES, CONDOMS, DIAPHRAGMS, BALLOONS, SOCKS, OR UNDERWEAR?NO LATEX ALLERGY : HAVE YOU EVER DEVELOPED ANY TYPE OF REACTION DURING OR AFTER DENTAL APPOINTMENT, VAGINAL/RECTAL EXAMINATION, SURGICAL PROCEDURE, OR ANY OTHER EXPOSURE?NO LATEX RISK : HAVE YOU EVER HAD ANY DIFFICULTY BREATHING OR HIVES AFTER EATING OR HANDLING ANY FRUITS, OR VEGETABLES; SUCH KIWI, BANANAS, STONE FRUITS, OR CHESTNUTSNO LATEX RISK : DO YOU HAVE A PREVIOUS PERSONAL HISTORY OF MORE THAN NINE SURGERIES, SPINA BIFIDA, OR REPEATED CATHERIZATIONS? NO LATEX RISK : ARE YOU FREQUENTLY EXPOSED TO LATEX PRODUCTS IN YOUR OCCUPATION?NO DATE ASKED : 05/01/2021 ALCOHOL USE: YES, ONCE IN A WHILE. ALCOHOL SCREENING DID YOU HAVE A DRINK CONTAINING ALCOHOL IN THE PAST YEAR?YES HOW OFTEN DID YOU HAVE SIX OR MORE DRINKS ON ONE OCCASION IN THE PAST YEAR?NEVER (0 POINTS) HOW MANY DRINKS DID YOU HAVE ON A TYPICAL DAY WHEN YOU WERE DRINKING IN THE PAST YEAR?1 OR 2 (0 POINTS) HOW OFTEN DID YOU HAVE A DRINK CONTAINING ALCOHOL IN THE PAST YEAR?MONTHLY OR LESS (1 POINT) POINTS1 INTERPRETATIONNEGATIVE RECREATIONAL DRUG USE DRUG USE?YES MARIJUANA CAFFEINE CAFFEINE USE?YES HOW OFTEN AND HOW MUCH? 3 CUPS DAILY SEXUAL HX HAD SEX IN THE LAST 12 MONTHS (VAGINAL, ORAL, OR ANAL)?: YES, WITH: MEN ONLY, USE PROTECTION?: NO, HAVE YOU EVER HAD AN STD?: NO, LMP:: 08/20/10. LANGUAGE LANGUAGES SPOKEN:LATVIAN LEARNING BARRIERS / SPECIAL NEEDS CHANGE FROM LAST VISIT?NO BARRIERS TO LEARNING?NO HEARING IMPAIRED?NO VISION IMPAIRED?YES COGNITIVELY IMPAIRED?NO :CORRECTIVE LENSES READINESS TO LEARN?YES LEARNING PREFERENCES?NO LEARNING CAPABILITIES PRESENT?YES EMOTIONAL BARRIERS?NO SPECIAL DEVICES?NO DRESSING ROOM PORTER NEEDED?NO DOMESTIC VIOLENCE DO YOU FEEL SAFE IN YOUR ENVIRONMENT?YES OCCUPATION: UNEMPLOYED. DIET: REGULAR. EXERCISE: DAILY 30 MINS CARDIO. MARITAL STATUS: . OTHERS AT HOME: SPOUSE, CHILDREN. TODAY'S VISIT 03/03/20, PATIENT DESCRIBES PAIN : IT COMES AND GOES, THROBBING, FROM 0-10, WHAT LEVEL IS YOUR PAIN TODAY? 6, PRECIPITATING FACTORS ACTIVITY, ALLEVIATING FACTORS SLEEPING, MEDS, IMPACT ON FUNCTION YES. - WAS THE PROVIDER NOTIFIED OF ANY PERTINENT INFO?YES HAS THE PATIENT BEEN EDUCATED REGARDING HIS/HER PLAN OF CARE?YES HAS THE PATIENT BEEN EDUCATED REGARDING PAIN, THE RISK FOR PAIN, THE IMPORTANCE OF EFFECTIVE PAIN MANAGEMENT, AND THE PAIN ASSESSMENT PROCESS?YES ADVANCE DIRECTIVE ADVANCE DIRECTIVE DISCUSSED WITH PATIENT:YES PT HAS NO ADVANCED DIRECTIVES, DECLINES INFORMATION AT THIS TIME. 08/08/20 MT. VITAL SIGNS WT 136 LBS, HT 62.25 IN, BMI 24.67 INDEX, BP 122/73 MM HG, HR 71 /MIN, RR 18 /MIN, TEMP 96.2 F, OXYGEN SAT % 96%, SAFE IN ENV? (Y/N) Y, NA INITIALS SC 08:37, REVIEWED BY: Chloe DELUNA RN. EXAMINATION GENERAL: A HISTORY AND PHYSICAL EXAM ON THE PATIENT WAS DONE ON 04/14/2021 (DATE OF ORIGINAL ASSESSMENT) IN PREPARATION OF SURGERY/PROCEDURE. I HAVE NOW REASSESSED THIS PATIENT'S HEALTH STATUS AND PERFORMED AN UPDATED EXAM TODAY. ALL CHANGES IN THE PATIENT'S HISTORY, PHYSICAL EXAM, PRE-EXISTING CONDITONS, AND INDICATIONS/CONTRAINDICATIONS TO THE PLANNED PROCEDURE AND ANESTHESIA ARE DOCUMENTED AND EVALUATED BELOW. I ATTEST TO THE ADEQUACY AND APPROPRIATENESS OF MY ASSESSMENT, AND CONFIRM THE NECESSITY FOR THE PLANNED PROCEDURE. THE PATIENT IS ALERT, ORIENTED TIMES THREE AND COOPERATIVE. LUNGS ARE CLEAR TO AUSCULTATION. HEART SHOWS REGULAR RHYTHM, NO MURMURS AND NO GALLOPS. ASSESSMENTS MYALGIA, OTHER SITE - M79.18 (PRIMARY) TREATMENT MYALGIA, OTHER SITE COMPLETION OF PROCEDURAL VISIT WHEN MEETS CRITERIADEGISELLA PULLIAM 05/04/2021 11:38:51 AM > CRITERIA MET 1003 MEDICATION: PAIN VALIUM TAB 10MG ORALLY (DIAZEPAM)MYRNA FULLER Navdeep 05/04/2021 8:42:23 AM > VERIFIED. GISELLA DELUNA 05/04/2021 8:53:30 AM > ADMINISTERED MEDICATION: PAIN OXYCODONE HCL TAB 10MG ORALLYJONNYKELSEYMYRNA L 05/04/2021 8:42:34 AM > VERIFIED. GISELLA DELUNA 05/04/2021 8:53:50 AM > ADMINISTERED OTHERS NOTES: 05/01/21 1156 PAT COMPLETED. SELINA MO BSN. PROCEDURES PAIN NURSING RECORD PROCEDURE IN ROOM 0837, PHYSICIAN IN ROOM 0941, START 943, FINISH 946, PHYSICIAN OUT OF ROOM 0947, OUT OF ROOM 1003, ECG N/A, PATIENT SHIELDED N/A, SAFETY STRAP N/A, PREP ALCOHOL DR. SIMMONS, DRESSING JELLY DELUNA RN LOC: IN ROOM 0837, PHYSICIAN IN ROOM 0941, START 943, FINISH 946, PHYSICIAN OUT OF ROOM 0947, OUT OF ROOM 1003, ECG N/A, PATIENT SHIELDED N/A, SAFETY STRAP N/A, PREP ALCOHOL DR. SIMMONS, DRESSING JELLY DELUNA RN RESP: IN ROOM 0837, PHYSICIAN IN ROOM 0941, START 0944, FINISH 0947, PHYSICIAN OUT OF ROOM 0947, OUT OF ROOM 1003, ECG N/A, PATIENT SHIELDED N/A, SAFETY STRAP N/A, PREP ALCOHOL DR. SIMMONS, DRESSING TEGPANCHITO DELUNA RN COLOR: GISELLA DELUNA 05/04/2021 8:58:31 AM > 1. ALERT, ORIENTED SKIN: GISELLA DELUNA 05/04/2021 8:58:48 AM > 1. WARM, DRY POSITION: GISELLA DELUNA 05/04/2021 8:58:52 AM > 5. SITTING VITALS: TRAVON DELUNAITA 05/04/2021 9:05:17 AM > 112/74,72,18,94% TRAVON DELUNAITA 05/04/2021 9:20:24 AM > 100/53,62,16,94% TRAVON DELUNAITA 05/04/2021 9:35:06 AM > 116/74,58,16,98% TRAVON DELUNAITA 05/04/2021 9:56:13 AM > 149/75,58,16,95% COMPLETION OF PROCEDURE APPOINTMENT: POST PAIN 4, DRESSING SITE DRY AND INTACT, IV N/A, GAIT STEADY, TEACHING COMPLETED, PATIENT ACKNOWLEDGES UNDERSTANDING YES, PROCEDURE APPOINTMENT COMPLETED AT 1003 BY: Chloe DELUNA RN PN TRIGGER POINT INJECTION WITH STEROIDS PRE PROCEDURE DIAGNOSIS 1. MYALGIA 2. PAIN AT BILATERAL NECK AREA, BILATERAL SHOULDER AREA AND BILATERAL THORACIC AREA POST PROCEDURE DIAGNOSIS 1. MYALGIA 2. PAIN AT BILATERAL NECK AREA, BILATERAL SHOULDER AREA AND BILATERAL THORACIC AREA PROCEDURE TRIGGER POINT INJECTION AT BILATERAL NECK AREA, BILATERAL SHOULDER AREA AND BILATERAL THORACIC AREA SURGEON DR. CARLOTTA SIMMONS TERRAZZO MECHANIC NONE ANESTHESIA LOCAL PRE PROCEDURE NOTE THE PATIENT HAS A HISTORY OF CHRONIC PAIN AT THE RIGHT AND LEFT NECK AREA, RIGHT AND LEFT SHOULDER AREA AND RIGHT AND LEFT THORACIC AREA. I EVALUATED THE PATIENT AND REVIEWED THE CHART. THERE IS EVIDENCE OF BANDS OF TISSUE WITH RESTRICTION OF MOVEMENT AND PRESENCE OF TRIGGER POINT AT THE RIGHT AND LEFT NECK AREA, RIGHT AND LEFT SHOULDER AREA AND RIGHT AND LEFT THORACIC AREA. I WENT OVER THE RISKS, ALTERNATIVES, AND BENEFITS ASSOCIATED WITH THIS PROCEDURE. THE PATIENT WOULD LIKE TO PROCEED AND GIVE CONSENT TO PERFORMED THE PROCEDURE. THE PATIENT DENIES UNEXPLAINABLE WEIGHT LOSS, FEVER, CHILLS, OR NEW CHANGES IN URINARY OR BOWEL CONTROL. THE PATIENT IS COVID-19 NEGATIVE DESCRIPTION OF PROCEDURE THE PATIENT WAS BROUGHT TO THE PROCEDURE ROOM AND PLACED IN THE SITTING POSITION. THE AREA WAS CLEANED WITH ALCOHOL. THE PROCEDURE WAS DONE USING ASEPTIC STERILE TECHNIQUE. A TIMEOUT WAS PERFORMED WHERE THE CONSENTED SITE WAS VERIFIED WITH EVERYONE IN THE ROOM. USING A 25-GAUGE NEEDLE, TRIGGER POINTS WERE INJECTED AT THE RIGHT AND LEFT NECK AREA, RIGHT AND LEFT SHOULDER AREA AND RIGHT AND LEFT THORACIC AREA WITH A TOTAL OF 40 ML OF BUPIVACAINE 0.25% AND KENALOG 40 MG. THE MEDICATIONS WERE VERIFIED WITH THE NURSE. THERE WAS NO EVIDENCE OF BLOOD OR PARESTHESIA DURING THE PROCEDURE. THE PATIENT WAS SENT TO THE RECOVERY ROOM. THE PATIENT WAS MOVING THE EXTREMITIES AND DOING WELL. THERE WERE NO COMPLICATIONS DURING THE PROCEDURE. ESTIMATED BLOOD LOSS WAS LESS THAN 5 ML POST PROCEDURE NOTE THE PROCEDURE DONE WAS DISCUSSED WITH THE PATIENT. THE PATIENT WILL BE SEEN IN A FOLLOW UP IN THE NEXT FEW WEEKS. I AM LOOKING FOR LONG LASTING PAIN RELIEF FOR THE PATIENT WITH THIS INTERVENTION. INSTRUCTIONS WERE GIVEN, QUESTIONS WERE ANSWERED, AND THE PATIENT EXPRESSED UNDERSTANDING AND AGREES WITH THE PLAN. I, RAUDEL ROJAS, DOCUMENTED THE ABOVE INFORMATION ACTING A SCRIBE FOR DR. SIMMONS. I HAVE REVIEWED THE ABOVE DOCUMENT, WRITTEN BY RAUDEL ROJAS, CLAIMS CONSULTANT, AND I VERIFY THAT IT IS ACCURATE PROCEDURE CODES 32252 INJECT TRIGGER POINTS 3/> DISPOSITION & COMMUNICATION FOLLOW UP FOLLOW UP WITH DISPENSING OPTICIAN APPRENTICE (REASON: POST TRIGGER POINT INJECTION BILATERAL NECK, BILATERAL SHOULDER AND BILATERAL THORACIC) ELECTRONICALLY SIGNED BY CARLOTTA SIMMONS MD, MD ON 05/07/2021 AT 02:14 PM EDT DISCLAIMER : THIS IS A VISIT SUMMARY EXTRACTED FROM THE [employer] CHART. IT IS NOT A COPY OF THE [employer] PROGRESS NOTE. VIJAY
== END ==
LOC: M PAIN 08:30
PROVIDERS: ATTEND Anesthesiology
DX: M79.18 Myalgia, other site (principal); J45.909 Unspecified asthma, uncomplicated; F17.210 Nicotine dependence, cigarettes, uncomplicated; Z86.59 Personal history of other mental and behavioral disorders; Z79.51 Long term (current) use of inhaled steroids; Z79.899 Other long term (current) drug therapy
CPT/HCPCS: 20553; J3301

== ENCOUNTER → 2021-05-20 | Outpatient (CLI) | payer BC, OTHER ==
[~2021-05-20] MED LIST changes: +BREO1INH3; -BUPIVACAINE HCL 0.25% 10ML VIAL As Ordered ONE; -BUPIVACAINE HCL 0.25% 30ML VIAL As Ordered ONE; +FLUTISP; +IBUP-1022 PO; +OXYB5TAB10 PO; +TRAZ-189 PO; -TRIAMCINOLONE ACETONIDE SUSP 40 MG/ML VIAL (J3301) As Ordered ONE; -diazePAM 5MG TABLET As Ordered ONE; -oxyCODONE 5MG TAB As Ordered ONE
--- NOTE | 2021-05-20 23:50 | ECGEPIP ---
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 No remarkable changes but slower heart rate Electronically Signed on 05-20-2021 23:50:27 EDT by Cole Maldonado
== END ==
LOC: M EKG 12:29
PROVIDERS: ATTEND Anesthesiology
DX: Z01.818 Encounter for other preprocedural examination (principal)

== ENCOUNTER → 2021-05-20 | Outpatient (CLI) | payer BC ==
--- NOTE | 2021-05-21 02:47 | ECWPNPC ---
PATIENT NAME: THERESE HALL : 1970 GENDER: FEMALE VISIT DATE: 05/20/2021 DISCHARGE DATE: 05/20/21 1152 VISIT LOCKED DATE TIME: PHYSICIAN: ANNEMARIE CORADO RESOURCE: ANNEMARIE CORADO REASON FOR APPOINTMENT 1. POST TRIGGER POINT INJECTIONS BILATERAL NECK,BILATERAL SHOULDERS,BILATERAL THORACIC HISTORY OF PRESENT ILLNESS GENERAL: HERE FOR POSTPROCEDURE FOLLOW-UP. HAD TRIGGER POINT INJECTIONS BILATERAL NECK, BILATERAL SHOULDERS AND BILATERAL THORACIC REGION ON 05/04/2021. REPORTING MARKED REDUCTION IN PAIN IN THAT REGION SINCE PROCEDURE. REPORTING IMPROVED ACTIVITY TOLERANCE SINCE PROCEDURE. CHIEF AREA OF PAIN IS HIS LOW BACK. SHE IS SCHEDULED TO HAVE BLADDER SURGERY/SLING THE FIRST PART OF MAY. SHE WOULD LIKE TO TALK TO US ABOUT DOING INJECTIONS OVER LOWER BACK AFTER SHE HAS RECUPERATED. -. FALL RISK SCREENING: SCREENING : NO FALLS REPORTED IN THE LAST YEAR. PAIN SCREENING: PATIENT HAS A COMPLAINT OF ACUTE OR CHRONIC PAIN :YES LOCATION OF PAIN:NECK, BOTH SHOULDERS, UPPER BACK, MID BACK INTENSITY OF PAIN (SCALE OF 1 TO 10):3 WHAT DOES YOUR PAIN FEEL LIKE:ACHING, CONTINOUS DURATION:CONTINOUS, CONSTANT, ALL DAY PAIN IS INCREASED BY:ACTIVITIES PAIN IS DECREASED BY:OTHERS HEAT, LAYING DOWN- SOMETIMES NURSING NOTE: -. PAIN CENTER INTAKE QUESTIONS: DO YOU HAVE A HISTORY OF MRSA? :NO DO YOU TAKE A BLOOD THINNERS? :NO DO YOU HAVE ANY BLEEDING DISORDERS? :NO ANY NEW NUMBNESS OR WEAKNESS IN YOUR LEGS OR ARMS? :NO ANY PACEMAKER,DEFIBRILLATOR, OR DORSAL COLUMN STIMULATOR? :NO DO YOU HAVE ANY RASHES OR OPEN SORES? :NO ARE YOU ALLERGIC TO IV DYE? :NO ARE YOU DIABETIC? :NO ANY NEW PROBLEMS WITH YOUR MEDICATIONS? :NO HAVE YOU RECEIVED A VACCINE IN THE PAST 30 DAYS? :NO DO YOU PLAN TO RECEIVE A VACCINE IN THE NEXT 21 DAYS? :NO DO YOU NEED ANY PRESCRIPTION? :NO DO YOU TAKE ANY IMMUNOSUPPRESSIVE MEDICATIONS? :NO IS THERE A CHANCE YOU COULD BE ? :NO ARE YOU BREAST FEEDING? :NO CURRENT MEDICATIONS TAKING IBUPROFEN 800 MG TABLET 1 TABLET ORALLY Q8H TAKING MULTIVITAMINS OTC TABLET 1 TAB(S) ORALLY DAILY TAKING DULOXETINE HCL 60 MG CAPSULE DELAYED RELEASE PARTICLES 1 CAPSULE ORALLY BID TAKING MONTELUKAST SODIUM 10 MG TABLET 1 TABLET ORALLY ONCE A DAY TAKING TRAZODONE HCL 100 MG TABLET 1 TABLET AT BEDTIME ORALLY ONCE A DAY TAKING CYCLOBENZAPRINE HCL 10 MG TABLET 1 TABLET NEEDED ORALLY THREE TIMES A DAY TAKING BREO ELLIPTA 200-25 MCG/INH AEROSOL POWDER BREATH ACTIVATED 1 PUFF INHALATION ONCE A DAY TAKING BENADRYL ALLERGY 25 MG TABLET 1 TABLET NEEDED ORALLY EVERY 8 HRS TAKING FISH OIL 1200 MG CAPSULE 1 CAPSULE ORALLY ONCE A DAY TAKING MARYAN ALLERGY 180 MG TABLET 1 TABLET NEEDED ORALLY ONCE A DAY TAKING OXYBUTYNIN CHLORIDE 5 MG TABLET 1 TABLET ORALLY ONCE A DAY NOT-TAKING LYRICA 150 MG CAPSULE 1 CAPSULE ORALLY BID NOT-TAKING MOBIC 7.5 MG TABLET 1 TABLET ORALLY BID NOT-TAKING TRAMADOL HCL 50 MG TABLET 1 TABLET NEEDED ORALLY EVERY 6 HRS PRN MDD4 #60TAB SHOULD LAST 30 DAYS, NOTES: TAKES VERY RARELY NOT-TAKING VENTOLIN HFA 108 (90 BASE) MCG/ACT AEROSOL SOLUTION 2 PUFFS NEEDED INHALATION EVERY 6 HRS, NOTES: NONE RECENTLY MEDICATION LIST REVIEWED AND RECONCILED WITH THE PATIENT PAST MEDICAL HISTORY URINARY FREQUENCY/STRESS INCONTINENCE ASTHMA FIBROMYALGIA CHRONIC PAIN , NECK PAIN , DJD DEPRESSION PALPITATIONS ARTHRITIS 1ST COVID 02/18/2021 2ND COVID 02/21/2021 ALLERGIES ENVIRONMENTAL: POST NASAL DRIP - ALLERGY SURGICAL HISTORY COLONOSCOPY 2008 REMOVAL BREAST CYSTS THROUGH NEEDLE ASPIRATION 2009 HYSTERECTOMY 2012 PUBOVAGINAL SLING PROCEDURE 05/27/2021 SOCIAL HISTORY GENERAL: TOBACCO USE ARE YOU A:CURRENT SMOKER ARE YOU INTERESTED IN QUITTING?READY TO QUIT ACTIVELY TRYING TO QUIT AT THIS TIME COUNSELED THE PATIENT ON TOBACCO USE, CESSATION [id number]/28/2021 HOW MANY CIGARETTES A DAY DO YOU SMOKE?5 OR LESS HOW SOON AFTER YOU WAKE UP DO YOU SMOKE YOUR FIRST CIGARETTE?AFTER 60 MIN HOW OFTEN DO YOU SMOKE CIGARETTES?EVERY DAY PATIENT COUNSELED ON THE DANGERS OF TOBACCO USE AND URGED TO QUIT:05/20/2021 LATEX QUESTIONNAIRE LATEX ALLERGY : HAVE YOU EVER DEVELOPED ANY TYPE OF REACTION AFTER HANDLING LATEX PRODUCTS SUCH RUBBER GLOVES, CONDOMS, DIAPHRAGMS, BALLOONS, SOCKS, OR UNDERWEAR?NO LATEX ALLERGY : HAVE YOU EVER DEVELOPED ANY TYPE OF REACTION DURING OR AFTER DENTAL APPOINTMENT, VAGINAL/RECTAL EXAMINATION, SURGICAL PROCEDURE, OR ANY OTHER EXPOSURE?NO LATEX RISK : HAVE YOU EVER HAD ANY DIFFICULTY BREATHING OR HIVES AFTER EATING OR HANDLING ANY FRUITS, OR VEGETABLES; SUCH KIWI, BANANAS, STONE FRUITS, OR CHESTNUTSNO LATEX RISK : DO YOU HAVE A PREVIOUS PERSONAL HISTORY OF MORE THAN NINE SURGERIES, SPINA BIFIDA, OR REPEATED CATHERIZATIONS? NO LATEX RISK : ARE YOU FREQUENTLY EXPOSED TO LATEX PRODUCTS IN YOUR OCCUPATION?NO DATE ASKED : 05/20/2021 ALCOHOL USE: YES, ONCE IN A WHILE. ALCOHOL SCREENING DID YOU HAVE A DRINK CONTAINING ALCOHOL IN THE PAST YEAR?YES HOW OFTEN DID YOU HAVE SIX OR MORE DRINKS ON ONE OCCASION IN THE PAST YEAR?NEVER (0 POINTS) HOW MANY DRINKS DID YOU HAVE ON A TYPICAL DAY WHEN YOU WERE DRINKING IN THE PAST YEAR?1 OR 2 (0 POINTS) HOW OFTEN DID YOU HAVE A DRINK CONTAINING ALCOHOL IN THE PAST YEAR?MONTHLY OR LESS (1 POINT) POINTS1 INTERPRETATIONNEGATIVE RECREATIONAL DRUG USE DRUG USE?YES MARIJUANA CAFFEINE CAFFEINE USE?YES HOW OFTEN AND HOW MUCH? 3 CUPS DAILY SEXUAL HX HAD SEX IN THE LAST 12 MONTHS (VAGINAL, ORAL, OR ANAL)?: YES, WITH: MEN ONLY, USE PROTECTION?: NO, HAVE YOU EVER HAD AN STD?: NO, LMP:: 08/20/10. LANGUAGE LANGUAGES SPOKEN:CROATIAN LEARNING BARRIERS / SPECIAL NEEDS CHANGE FROM LAST VISIT?NO BARRIERS TO LEARNING?NO HEARING IMPAIRED?NO VISION IMPAIRED?YES :CORRECTIVE LENSES COGNITIVELY IMPAIRED?YES READINESS TO LEARN?YES LEARNING PREFERENCES?NO LEARNING CAPABILITIES PRESENT?YES EMOTIONAL BARRIERS?NO SPECIAL DEVICES?NO VISUAL AID EXPERT NEEDED?NO DOMESTIC VIOLENCE DO YOU FEEL SAFE IN YOUR ENVIRONMENT?YES OCCUPATION: UNEMPLOYED. DIET: REGULAR. EXERCISE: DAILY 30 MINS CARDIO. MARITAL STATUS: . OTHERS AT HOME: SPOUSE, CHILDREN. TODAY'S VISIT 03/03/20, PATIENT DESCRIBES PAIN : IT COMES AND GOES, THROBBING, FROM 0-10, WHAT LEVEL IS YOUR PAIN TODAY? 6, PRECIPITATING FACTORS ACTIVITY, ALLEVIATING FACTORS SLEEPING, MEDS, IMPACT ON FUNCTION YES. - WAS THE PROVIDER NOTIFIED OF ANY PERTINENT INFO?YES HAS THE PATIENT BEEN EDUCATED REGARDING HIS/HER PLAN OF CARE?YES HAS THE PATIENT BEEN EDUCATED REGARDING PAIN, THE RISK FOR PAIN, THE IMPORTANCE OF EFFECTIVE PAIN MANAGEMENT, AND THE PAIN ASSESSMENT PROCESS?YES ADVANCE DIRECTIVE ADVANCE DIRECTIVE DISCUSSED WITH PATIENT:YES PT HAS NO ADVANCED DIRECTIVES, DECLINES INFORMATION AT THIS TIME. 08/08/20 MT. HOSPITALIZATION/MAJOR DIAGNOSTIC PROCEDURE ASTHMA ATTACK, WAS INTUBATED AND AN INPATIENT X 7 DAYS 2016 REVIEW OF SYSTEMS CONSTITUTIONAL: ANY RECENT FEVER NO . CHILLS NO . WEIGHT CHANGE OF UNKNOWN REASONS NO . GASTROENTEROLOGY: NEW UNEXPLAINABLE CHANGES IN BOWEL CONTROL NO . CONSTIPATION NO . GENITOURINARY: ANY NEW CHANGE IN BLADDER CONTROL? NO . NEUROLOGY: NEW ONSET DIZZINESS OR NEUROLOGICAL CHANGES NOT MENTIONED NO . NEW NUMBNESS OR PAIN PATTERNS NOT MENTIONED AND PERTINENT TO TODAY'S VISIT NO . CARDIOLOGY: NEW CHEST PRESSURE NO . PATIENT DENIES NO . RESPIRATORY: UNEXPLAINABLE COUGH NO . NEW SHORTNESS OF BREATH NO . VITAL SIGNS WT 133 LBS, HT 62.25 IN, BMI 24.13 INDEX, BP 127/77 MM HG, HR 71 /MIN, RR 18 /MIN, TEMP 97.2 F, OXYGEN SAT % 95%, SAFE IN ENV? (Y/N) YEST.JUAN RAMON ARMENDARIZ. EXAMINATION GENERAL EXAMINATION: GENERAL AWAKE,ALERT ,PLEAASANT . PSYCH AFFECT NORMAL . LUNGS: LUNG GLASGOW ARE CLEAR TO AUSCULTATION BILATERALLY. GOOD MOVEMENT OF AIR . HEART: S1, S2 IN A REGULAR RATE AND RHYTHM. NO SIGNIFICANT MURMURS, RUBS OR GALLOPS NOTED . LUMBAR: PALPATION: + FOR PAIN OVER L/S SPINE. + FOR PAIN OVER L/S PARASPINALS .SPECIFIC POINT TENDERNESS OVER RIGHT L4/5-L5/S1 LUMBAR FACETS WITH FACET LOADING. NEUROLOGIC EXAM: NORMAL SENSATION LIGHT TOUCH BILAT. LOWER EXTREMITIES . ASSESSMENTS OTHER CHRONIC PAIN - G89.29 (PRIMARY) MYALGIA, OTHER SITE - M79.18 TREATMENT OTHER CHRONIC PAIN PAIN PROCEDURE LOGDATE OF PROCEDURE1PROCEDURE:TRIGGER POINT INJECTION BILATERAL NECK, BILATERAL SHOULDERS, BILATERAL THORACICAMOUNT OF PRE SEDATEVALIUM 10MG, OXYCODONE 10MGRESULT:REDUCTION IN PAIN AND IMPROVED ACTIVITY TOLERANCE NOTES: PATIENT WOULD LIKE TO TALK ABOUT TREATMENT FOR LOWER BACK PAIN AFTER SHE RECUPERATES FROM UPCOMING BLADDER/SLING PROCEDURE. FOLLOW-UP AT PAIN CLINIC SCHEDULED IN 8 TO 10 WEEKS. PROCEDURE CODES FA211 ESTABILISHED PATIENT [facility] FAC[facility] CHARGE DISPOSITION & COMMUNICATION FOLLOW UP 8-10 WKS (REASON: DISCUSS PROCEDURES FOR LOW BACK PAIN) ELECTRONICALLY SIGNED BY FRANCISCO GOLDEN ON 05/20/2021 AT 01:29 PM EDT DISCLAIMER : THIS IS A VISIT SUMMARY EXTRACTED FROM THE [employer] CHART. IT IS NOT A COPY OF THE [employer] PROGRESS NOTE. MTDD
== END ==
LOC: M PAIN 11:15
PROVIDERS: ATTEND Nurse Practitioner Family
DX: G89.29 Other chronic pain (principal); M79.18 Myalgia, other site; N39.3 Stress incontinence (female) (male); J45.909 Unspecified asthma, uncomplicated; M79.7 Fibromyalgia; F32.9 Major depressive disorder, single episode, unspecified; F17.210 Nicotine dependence, cigarettes, uncomplicated; Z79.899 Other long term (current) drug therapy

== ENCOUNTER → 2021-05-22 | Outpatient (CLI) | payer BC | LOC: M LABSMTC 10:30 | PROVIDERS: ATTEND Anesthesiology | DX: Z01.812 Encounter for preprocedural laboratory examination (principal); Z11.52 Encounter for screening for COVID-19 ==

== ENCOUNTER 2021-05-27 10:27 | Day surgery (SDC) | payer BC, OTHER ==
[~2021-05-27] VITALS: Ht 157.5 cm; Wt 59.4 kg
[~2021-05-27 10:27] MED LIST changes: +LIDOCAINE 1% MDV 20ML VIAL SQ PRN; +LR 1,000 ML IV ONE; +ceFAZolin SOD 2 GM in IV 1 EA IV ONE
[2021-05-27 11:04] LABS: HEMATOCRIT 45.8 % (36.0-47.0); HEMOGLOBIN 15.2 g/dl (12.0-15.5); MEAN CORPUSCULAR HEMOGLOBIN 33.4 pg (27.0-33.0); MEAN CORPUSCULAR HGB CONC 33.2 g/dl (32.0-36.5); MEAN CORPUSCULAR VOLUME 100.7 fl (80.0-96.0); PLATELET COUNT, AUTOMATED 386 10^3/uL (150-450); RED BLOOD COUNT 4.55 10^6/uL (4.00-5.40); WHITE BLOOD COUNT 7.1 10^3/uL (4.0-10.0)
[2021-05-27 11:33] LABS: BLOOD UREA NITROGEN 7 MG/DL (7-18); CARBON DIOXIDE LEVEL 32 MEQ/L (21-32); CHLORIDE LEVEL 105 MEQ/L (98-107); GLOMERULAR FILTRATION RATE > 60.0 (>51); GLUCOSE, FASTING 96 MG/DL (70-100); POTASSIUM SERUM 4.4 MEQ/L (3.5-5.1); SODIUM LEVEL 139 MEQ/L (136-145)
[2021-05-27] MEDS ORDERED: fentaNYL 100 MCG/2 ML INJECTION (J3010) As Ordered ONE (12:55)
[2021-05-27] MEDS ORDERED: KETOROLAC 60MG 2ML VIAL As Ordered ONE (12:55)
[2021-05-27] MEDS ORDERED: LIDOCAINE 2% 100MG/5ML SDV (FOR ANES.) As Ordered ONE (12:55)
[2021-05-27] MEDS ORDERED: ONDANSETRON 4MG/2ML VIAL As Ordered ONE (12:55)
[2021-05-27] MEDS ORDERED: propofoL 200 MG/20 ML VIAL As Ordered ONE (12:55)
[2021-05-27] MEDS ORDERED: MIDAZOLAM INJ 2MG/2ML VIAL (J2250 PER 1MG) As Ordered ONE (12:55)
[2021-05-27] MEDS ORDERED: CHLOROPROCAINE PRES. FREE 2% 20ML VIAL As Ordered ONE (12:59)
[2021-05-27] MEDS ORDERED: LIDOCAINE W/EPINEPHRINE 1% 20ML VIAL As Ordered ONE (13:02)
[2021-05-27] MEDS ORDERED: PHENYLephrine 500MCG 5ML (100MCG/ML) SYRINGE As Ordered ONE (13:54)
[2021-05-27] MEDS ORDERED: ACETAMINOPHEN 1000MG 100ML IV BTL (OFIRMEV) (J0131 PER 10MG) As Ordered ONE (13:56)
[2021-05-27] MEDS ORDERED: PERCOCET 5MG/325MG TAB PO PRN (14:45)
[2021-05-27] MEDS ORDERED: LR 1,000 ML IV SCH (14:50)
[2021-05-27] MEDS ORDERED: fentaNYL 100 MCG/2 ML INJECTION (J3010) IV PRN (14:50)
[2021-05-27] MEDS ORDERED: HYDROMORPHONE HCL 0.5 MG/ 0.5 ML SYRINGE (J1170 PER 1) IV PRN (14:50)
[2021-05-27] MEDS ORDERED: oxyCODONE 5MG TAB PO PRN (14:50)
[2021-05-27] MEDS ORDERED: ONDANSETRON 4MG/2ML VIAL IV PRN (14:50)
[2021-05-27 16:00] VITALS: BP 146/82
[2021-05-27] MEDS ORDERED: IBUPROFEN 800 MG TAB PO SCH (20:00)
--- NOTE | 2021-05-28 09:26 | RO ---
OPERATIVE NOTE DATE OF OPERATION: 05/27/2021 INDICATIONS: Debi is a 50-year-old female post-hysterectomy with history of stress urinary incontinence. After consulting decision was made for tension-free vaginal taping via obturator approach and possible cystoscopy. PREOPERATIVE DIAGNOSIS: Stress urinary incontinence. POSTOPERATIVE DIAGNOSIS: Stress urinary incontinence. PROCEDURES: 1. Transvaginal taping via obturator approach. 2. Cystoscopy. SURGEON: David Dodson DO JORDAN WORKER: ANESTHESIA: Spinal COMPLICATIONS: None. ESTIMATED BLOOD LOSS: Less than 20 mL. DESCRIPTION OF PROCEDURE: After obtaining informed consent the patient was taken to the operating room where spinal anesthetic was found to be adequate. She was then prepped and draped in usual sterile fashion in dorsal lithotomy position. At this point a Wolfe catheter was placed in the bladder for drainage. Using the marking pen a line was placed at the level of the urethral meatus. Second parallel line was placed approximately 2 cm above the first line. The exit cas for the TVT-O device was marked 2 cm away from the fold of the thigh. At this point Lidocaine solution was used at the exit cas as well as 2 cm below the urethral meatus. We then placed 5 mm incision below the urethral meatus. Using Metzenbaum the obturator foramen was puncture on the right. The wing guide of the TVT-O device was placed and then the device was inserted as we did at the premarked cas. A large Nataliya was placed on the introducer. Cystoscopy was performed; no evidence of any bladder injury was noted. At this point the introducer was removed. Nataliya was placed on the end of the TVT-O tape. The opposite side was done in similar fashion. Again cystoscopy performed and no evidence of any bladder injury noted. We then with the patient coughing adjusted the tape. After proper adjustment of the tape the plastic sheath was removed and excess tape was then cut away. The incision in the vaginal area was closed using 2-0 Vicryl in [id number] fashion and the exit cas at the thigh Dermabond was placed. The patient tolerated the procedure well. Bladder was emptied. She was then brought to the recovery room in stable condition. cc: [facility]
== END 2021-05-27 16:00 | disposition home or self-care (01) ==
LOC: M SDC 10:27
PROVIDERS: ATTEND Obstetrics & Gynecology
DX: N39.3 Stress incontinence (female) (male) (principal); M79.7 Fibromyalgia; J45.909 Unspecified asthma, uncomplicated; M19.90 Unspecified osteoarthritis, unspecified site; I49.49 Other premature depolarization; F32.9 Major depressive disorder, single episode, unspecified; R06.83 Snoring; F17.210 Nicotine dependence, cigarettes, uncomplicated; Z79.899 Other long term (current) drug therapy; Z79.51 Long term (current) use of inhaled steroids
CPT/HCPCS: 36415; 57288; 80048; 85027; 86850; 86900; 86901; C1771; J0131; J0690; J1885; J2250; J2370; J2400; J2405; J3010

== ENCOUNTER → 2022-03-19 | Outpatient (CLI) | payer BC, OTHER ==
[~2022-03-19] MED LIST changes: -LIDOCAINE 1% MDV 20ML VIAL SQ PRN; -LR 1,000 ML IV ONE; -MONT10TA10 PO; +MONT10TA97 PO; -ceFAZolin SOD 2 GM in IV 1 EA IV ONE
== END ==
LOC: M WHC 12:35
PROVIDERS: ATTEND Obstetrics & Gynecology
DX: Z12.31 Encounter for screening mammogram for malignant neoplasm of breast (principal)

== ENCOUNTER → 2022-04-15 | Outpatient (CLI) | payer BC, OTHER | LOC: M PLAIMG 12:34 | PROVIDERS: ATTEND Physician Assistant | DX: R10.9 Unspecified abdominal pain (principal) ==

== ENCOUNTER → 2022-12-20 | Outpatient (CLI) | payer BC, OTHER ==
[2022-12-20 17:22] LABS: FREE T4 1.08 NG/DL (0.89-1.76); IMMUNOGLOBULIN A 258.6 MG/DL (40-350); THYROID STIMULATING HORMONE 1.522 uIU/ML (0.55-4.78)
== END ==
LOC: M WUC 12:28
PROVIDERS: ATTEND Internal Medicine Gastroenterology
DX: R11.0 Nausea (principal)

== ENCOUNTER → 2023-01-06 | Outpatient (CLI) | payer BC, OTHER | LOC: M LABSMTC 09:20 | PROVIDERS: ATTEND Anesthesiology | DX: Z01.818 Encounter for other preprocedural examination (principal) ==

== ENCOUNTER → 2023-01-11 | Day surgery (SDC) | payer BC, OTHER ==
[~2023-01-11] VITALS: Ht 157.5 cm; Wt 59.3 kg
[~2023-01-11] MED LIST changes: +GLYCOPYRROLATE INJ 0.2 MG/ML 2 ML VIAL As Ordered ONE; +LIDOCAINE 2% 100MG/5ML SDV (FOR ANES.) As Ordered ONE; +NS 1,000 ML IV ONE; +ONDANSETRON 4MG 2ML VIAL As Ordered ONE; +fentaNYL 100 MCG/2 ML INJECTION As Ordered ONE; +propofoL 200 MG/20 ML VIAL As Ordered ONE
[2023-01-11 12:16] VITALS: BP 121/74
== END | disposition home or self-care (01) ==
LOC: M OPP 09:33
PROVIDERS: ATTEND Internal Medicine Gastroenterology
DX: K64.8 Other hemorrhoids (principal); K58.0 Irritable bowel syndrome with diarrhea; K63.89 Other specified diseases of intestine; I49.3 Ventricular premature depolarization; M79.7 Fibromyalgia; F32.9 Major depressive disorder, single episode, unspecified; F41.9 Anxiety disorder, unspecified; Z79.1 Long term (current) use of non-steroidal anti-inflammatories (NSAID); Z79.891 Long term (current) use of opiate analgesic; Z79.899 Other long term (current) drug therapy
CPT/HCPCS: 43235; 45380; 88305; J2405; J3010

== ENCOUNTER → 2023-03-22 | Outpatient (CLI) | payer BC, OTHER ==
[~2023-03-22] MED LIST changes: +FLUT50SP17; -FLUTISP; -GLYCOPYRROLATE INJ 0.2 MG/ML 2 ML VIAL As Ordered ONE; -LIDOCAINE 2% 100MG/5ML SDV (FOR ANES.) As Ordered ONE; -NS 1,000 ML IV ONE; -ONDANSETRON 4MG 2ML VIAL As Ordered ONE; -fentaNYL 100 MCG/2 ML INJECTION As Ordered ONE; -propofoL 200 MG/20 ML VIAL As Ordered ONE
== END ==
LOC: M WHC 11:24
PROVIDERS: ATTEND Obstetrics & Gynecology
DX: Z13.820 Encounter for screening for osteoporosis (principal); Z12.31 Encounter for screening mammogram for malignant neoplasm of breast; Z85.9 Personal history of malignant neoplasm, unspecified; Z80.9 Family history of malignant neoplasm, unspecified; Z78.9 Other specified health status; M85.88 Other specified disorders of bone density and structure, other site; M85.851 Other specified disorders of bone density and structure, right thigh; M85.852 Other specified disorders of bone density and structure, left thigh

== ENCOUNTER → 2023-03-23 | Outpatient (REF) | payer BC, OTHER ==
[2023-03-23 17:08] LABS: BLOOD UREA NITROGEN < 5 MG/DL (9-23); CALCIUM LEVEL 8.9 MG/DL (8.5-10.1); CARBON DIOXIDE LEVEL 29 MMOL/L (20-31); CHLORIDE LEVEL 103 MMOL/L (98-107); CREATININE FOR GFR 0.65 MG/DL (0.55-1.30); GLOMERULAR FILTRATION RATE > 60.0 (>51); GLUCOSE, FASTING 83 MG/DL (60-100); POTASSIUM SERUM 4.4 MMOL/L (3.5-5.1); SODIUM LEVEL 138 MMOL/L (136-145)
[2023-03-23 18:04] LABS: HEMOGLOBIN A1c 5.2 % (4.0-6.0)
[2023-03-25 13:10] LABS: ANTINUCLEAR ANTIBODIES DIRECT Negative (Negative); SJOGREN'S ANTI SS-A <0.2 AI (0.0-0.9); SJOGREN'S ANTI SS-B <0.2 AI (0.0-0.9)
== END ==
LOC: M LAB REF 16:25
PROVIDERS: ATTEND Pediatrics
DX: R68.2 Dry mouth, unspecified (principal); R63.1 Polydipsia

== ENCOUNTER → 2023-07-05 | Outpatient (CLI) | payer BC, OTHER | LOC: M WUC 12:37 | PROVIDERS: ATTEND Pediatrics | DX: M50.321 Other cervical disc degeneration at C4-C5 level (principal); R42 Dizziness and giddiness; M50.322 Other cervical disc degeneration at C5-C6 level; M62.838 Other muscle spasm; M43.12 Spondylolisthesis, cervical region ==

== ENCOUNTER → 2023-09-12 | Outpatient (CLI) | payer BC, OTHER ==
[~2023-09-12] MED LIST changes: -OXYB5TAB10 PO; +OXYB5TAB11 PO
== END ==
LOC: M PLAIMG 08:22
PROVIDERS: ATTEND Pediatrics
DX: R91.1 Solitary pulmonary nodule (principal); R91.8 Other nonspecific abnormal finding of lung field

== ENCOUNTER → 2023-12-22 | Outpatient (CLI) | payer BC, OTHER ==
[~2023-12-22] MED LIST changes: -FLUT50SP17; +FLUTISP; -OXYB5TAB11 PO; +OXYB5TAB14 PO
== END ==
LOC: M PLARAD 12:52
PROVIDERS: ATTEND Physician Assistant
DX: R51.9 Headache, unspecified (principal); R42 Dizziness and giddiness

== ENCOUNTER → 2024-01-24 | Outpatient (CLI) | payer BC, OTHER ==
[2024-01-24 17:52] LABS: BASO # 0.1 10^3/uL (0.0-0.2); BASO % 0.8 % (0.0-1.0); EOS # 0.1 10^3/uL (0.0-0.5); EOS % 1.5 % (0.0-3.0); HEMATOCRIT 45.6 % (36.0-47.0); HEMOGLOBIN 14.9 g/dl (12.0-15.5); LYMPH # 4.5 10^3/uL (1.5-5.0); LYMPH % 51.1 % (24.0-44.0); MEAN CORPUSCULAR HEMOGLOBIN 33.3 pg (27.0-33.0); MEAN CORPUSCULAR HGB CONC 32.7 g/dl (32.0-36.5); MONO # 0.6 10^3/uL (0.0-0.8); MONO % 7.1 % (2.0-8.0); NEUTROPHILS # 3.5 10^3/uL (1.5-8.5); NEUTROPHILS % 39.3 % (36.0-66.0); PLATELET COUNT, AUTOMATED 400 10^3/uL (150-450); RED BLOOD COUNT 4.47 10^6/uL (4.00-5.40); WHITE BLOOD COUNT 8.8 10^3/uL (4.0-10.0)
[2024-01-24 18:06] LABS: C REACTIVE PROTEIN QUANTITATIV 0.5 MG/DL (<1.0)
[2024-01-24 18:08] LABS: RHEUMATOID FACTOR QUANT 7.4 IU/ML (<14)
[2024-01-24 18:11] LABS: ERYTHROCYTE SEDIMENTATION RATE 26 mm/hr (0-30)
== END ==
LOC: M WUC 12:40
PROVIDERS: ATTEND Orthopaedic Surgery
DX: M25.552 Pain in left hip (principal)

== ENCOUNTER → 2024-03-02 | Outpatient (REF) | payer OTHER, BC ==
[2024-03-02 13:39] LABS: BASO # 0.1 10^3/uL (0.0-0.2); BASO % 0.7 % (0.0-1.0); EOS # 0.1 10^3/uL (0.0-0.5); EOS % 1.2 % (0.0-3.0); HEMATOCRIT 42.9 % (36.0-47.0); HEMOGLOBIN 14.6 g/dl (12.0-15.5); LYMPH % 34.3 % (24.0-44.0); MEAN CORPUSCULAR HEMOGLOBIN 33.7 pg (27.0-33.0); MEAN CORPUSCULAR VOLUME 99.1 fl (80.0-96.0); MONO # 0.9 10^3/uL (0.0-0.8); MONO % 10.1 % (2.0-8.0); NEUTROPHILS # 4.6 10^3/uL (1.5-8.5); NEUTROPHILS % 53.5 % (36.0-66.0); PLATELET COUNT, AUTOMATED 393 10^3/uL (150-450); RED BLOOD COUNT 4.33 10^6/uL (4.00-5.40); WHITE BLOOD COUNT 8.6 10^3/uL (4.0-10.0)
[2024-03-02 13:52] LABS: ERYTHROCYTE SEDIMENTATION RATE 28 mm/hr (0-30)
== END ==
LOC: M LAB REF 12:27
PROVIDERS: ATTEND Pediatrics
DX: R79.82 Elevated C-reactive protein (CRP) (principal)

== ENCOUNTER → 2024-03-23 | Outpatient (CLI) | payer BC | LOC: M WHC 13:26 | PROVIDERS: ATTEND Obstetrics & Gynecology | DX: Z12.31 Encounter for screening mammogram for malignant neoplasm of breast (principal) ==

== ENCOUNTER → 2024-05-23 | Outpatient (CLI) | payer BC ==
[2024-05-23 17:53] LABS: BASO # 0.1 10^3/uL (0.0-0.2); BASO % 0.7 % (0.0-1.0); EOS # 0.1 10^3/uL (0.0-0.5); EOS % 0.7 % (0.0-3.0); HEMATOCRIT 45.3 % (36.0-47.0); LYMPH % 38.1 % (24.0-44.0); MEAN CORPUSCULAR HEMOGLOBIN 33.1 pg (27.0-33.0); MEAN CORPUSCULAR HGB CONC 33.1 g/dl (32.0-36.5); MONO # 0.8 10^3/uL (0.0-0.8); MONO % 7.6 % (2.0-8.0); NEUTROPHILS # 5.6 10^3/uL (1.5-8.5); NEUTROPHILS % 52.5 % (36.0-66.0); PLATELET COUNT, AUTOMATED 361 10^3/uL (150-450); RED BLOOD COUNT 4.53 10^6/uL (4.00-5.40); WHITE BLOOD COUNT 10.6 10^3/uL (4.0-10.0)
[2024-05-23 17:59] LABS: HEMOGLOBIN A1c 5.1 % (4.0-6.0)
[2024-05-23 18:08] LABS: ALBUMIN 3.6 G/DL (3.2-5.2); ALKALINE PHOSPHATASE 103 U/L (46-116); ALT/SGPT 19 U/L (7.0-40); AST/SGOT 16 U/L (<34); BILIRUBIN,TOTAL 0.4 MG/DL (0.3-1.2); BLOOD UREA NITROGEN 8 MG/DL (9-23); CALCIUM LEVEL 8.8 MG/DL (8.5-10.1); CARBON DIOXIDE LEVEL 27 MMOL/L (20-31); CHLORIDE LEVEL 106 MMOL/L (98-107); CPK CREATINE PHOSPHOKINASE 46 U/L (34-145); CREATININE FOR GFR 0.66 MG/DL (0.55-1.30); GLOMERULAR FILTRATION RATE > 60.0 (>51); GLUCOSE, FASTING 108 MG/DL (60-100); POTASSIUM SERUM 4.3 MMOL/L (3.5-5.1); RHEUMATOID FACTOR QUANT < 3.5 IU/ML (<14); SODIUM LEVEL 137 MMOL/L (136-145); TOTAL PROTEIN 6.8 G/DL (5.7-8.2)
[2024-05-23 18:12] LABS: FOLATE 14.34 NG/ML (>5.4); VITAMIN B12 LEVEL 685 PG/ML (211-911)
[2024-05-25 08:01] LABS: PROTEIN, TOTAL SO 6.8 g/dL (6.1-8.1)
[2024-05-25 11:53] LABS: SSA SJOGRENS A <1.0 NEG AI (<1.0 NEG); SSB SJOGRENS B <1.0 NEG AI (<1.0 NEG)
[2024-05-26 00:18] LABS: CYCLIC CITRULLINATED PEPTIDE < 16 UNITS (<20)
== END ==
LOC: M WUC 14:19
PROVIDERS: ATTEND Nurse Practitioner Family
DX: G25.79 Other drug induced movement disorders (principal); Z79.899 Other long term (current) drug therapy; R73.09 Other abnormal glucose; R20.2 Paresthesia of skin; R42 Dizziness and giddiness; G43.011 Migraine without aura, intractable, with status migrainosus

== ENCOUNTER → 2024-09-13 | Outpatient (REF) | payer BC | LOC: M LAB REF 16:28 | PROVIDERS: ATTEND Physician Assistant | DX: B34.9 Viral infection, unspecified (principal) ==

== ENCOUNTER → 2024-10-02 | Outpatient (CLI) | payer BC | LOC: M RAD 09:42 | PROVIDERS: ATTEND Physician Assistant | DX: Z12.2 Encounter for screening for malignant neoplasm of respiratory organs (principal); F17.218 Nicotine dependence, cigarettes, with other nicotine-induced disorders ==

== ENCOUNTER → 2025-06-07 | Outpatient (REF) | payer OTHER ==
[2025-06-07 17:22] LABS: ALT/SGPT 12 U/L (7.0-40); AST/SGOT 21 U/L (<34); CALCIUM LEVEL 8.9 MG/DL (8.5-10.1); CARBON DIOXIDE LEVEL 28 MMOL/L (20-31); CHLORIDE LEVEL 102 MMOL/L (98-107); CHOLESTEROL LEVEL 196 MG/DL (<200); CHOLESTEROL RISK RATIO 3.13 (<5); CREATININE FOR GFR 0.73 MG/DL (0.55-1.30); GLOMERULAR FILTRATION RATE > 90.0 (>51); LDL CHOLESTEROL 115.6 MG/DL (<100); NON-HDL-C 133.4 MG/DL; POTASSIUM SERUM 4.5 MMOL/L (3.5-5.1); SODIUM LEVEL 138 MMOL/L (136-145); TRIGLYCERIDES LEVEL 89 MG/DL (<150)
[2025-06-07 17:24] LABS: TOTAL 25(OH) VITAMIN D 86.8 NG/ML (20.0-100.0)
== END ==
LOC: M LAB REF 16:12
PROVIDERS: ATTEND Pediatrics
DX: E78.5 Hyperlipidemia, unspecified (principal); M85.89 Other specified disorders of bone density and structure, multiple sites

== ENCOUNTER → 2025-08-27 | Outpatient (CLI) | payer BC ==
[~2025-08-27] MED LIST changes: -IBUP-1022 PO; +IBUP600T42 PO; +ISOVUE-370 76% 100 ML VIAL As Ordered ONE
== END ==
LOC: M RAD 13:49
PROVIDERS: ATTEND Internal Medicine Hematology & Oncology
DX: C50.512 Malignant neoplasm of lower-outer quadrant of left female breast (principal); R76.9 Abnormal immunological finding in serum, unspecified; R93.2 Abnormal findings on diagnostic imaging of liver and biliary tract; R93.422 Abnormal radiologic findings on diagnostic imaging of left kidney
CPT/HCPCS: 71260; 74177; Q9967

== ENCOUNTER → 2025-08-28 | Outpatient (CLI) | payer BC ==
[~2025-08-28] MED LIST changes: -ISOVUE-370 76% 100 ML VIAL As Ordered ONE
== END ==
LOC: M RAD 09:02
PROVIDERS: ATTEND Internal Medicine Hematology & Oncology
DX: C50.512 Malignant neoplasm of lower-outer quadrant of left female breast (principal); R76.9 Abnormal immunological finding in serum, unspecified
CPT/HCPCS: 78306; A9503